=== PATIENT | male | born 2000 | race Caucasian/White ===

== ENCOUNTER 2023-04-08 10:40 | Inpatient (IN) ==
--- NOTE | 2023-04-08 11:20 | Emergency Department Note ---
Impression & Plan Suicidal ideations, Mood disorder ED Provider Note NAME: CONCHA GOMEZ AGE: 22 SEX: M : 2000 ARRIVES VIA: Walk-In INFORMANT: Patient ED PROVIDER(S): Suman Kitchen DO CHIEF COMPLAINT: SI HPI: Patient is a 22-year-old male who presents ER for suicidal ideations. He notes he has been struggling for the past several months with GI issues. He notes after he eats something he gets sick to his stomach. He is followed with GI and they have worked him up and everything has been negative. He gets very anxious and depressed after eating. He has been thinking about killing himself and he feels like he can no longer carry on. Currently has a plan to shoot himself with a gun. He has no belly pain. No headache or change in vision. No chest pain or shortness of breath. No dysuria, urgency, or frequency. ADDITIONAL HISTORY OBTAINED: Per HPI Chronic Medical/Social Conditions Affecting Care: Per HPI PAST MEDICAL HISTORY:See Below PAST SURGICAL HISTORY:See Below FAMILY HISTORY:See Below SOCIAL HISTORY:See Below HOME MEDICATIONS:See Below ALLERGIES:See Below VITALS:See Below PHYSICAL EXAMINATION: GENERAL: Sitting up in bed, alert, well appearing, well nourished, no distress, non-toxic EYE EXAM: normal conjunctiva. OROPHARYNX: mucous membranes are moist NECK: supple, no nuchal rigidity, no adenopathy, non-tender LUNGS: Clear to auscultation. Normal chest wall mechanics HEART: no murmurs, S1 normal and S2 normal ABDOMEN: abdomen soft, non-tender, normo-active bowel sounds, no masses, no rebound or guarding. UPPER EXTREMITIES: upper extremities are grossly normal. LOWER EXTREMITIES: No pitting edema. NEURO EXAM: Normal sensorium, cranial nerves II-XII grossly intact, normal speech, no gross weakness of arms, no gross weakness of legs. No drift. Finger to nose intact. Gross sensation intact. PSYCH: Admits to suicidal ideations with a plan to shoot himself MEDICAL DECISION MAKING: Patient is a 22-year-old male who presents ER for suicidal ideations with a plan to shoot himself. Blood work was obtained and showed no significant leukocytosis or anemia. BMP along LFTs bilirubin was remarkable for T. bili at 1.3. TSH unremarkable. UA was clean. Tox negative. Alcohol negative. Marijuana positive. COVID-negative. He currently has no abdominal pain. Ultrasound was unremarkable. He was updated at bedside. Discussed with our psychiatric managed care provider who evaluate the patient. He wanted to go home. 302 was signed by myself with the petition by our psychiatric care worker. It was signed off and patient was admitted to 3 S. on a 302 Observation Status: Indication: The patient was placed in observation status at 1100. Suicidal ideations with a plan. During the time in observation, the patient was frequently reassessed and received blood work and. On final reassessment the patient medically cleared with normal blood work and ultrasound and the patient will be admitted to 3 S. at 1510. We will observation time of 4 hours and 10 minutes. External Records Reviewed: None Consults/Care Managements Discussions: Per [facility] Triage Nursing notes reviewed. Limited review of prior medical records performed Vital Signs: reviewed and remarkable for HTN Differential diagnosis: Mood disorder, infection, hypoglycemia, electrolyte abnormalities, cardiac sources, intracerebral event, toxicologic, trauma, neurologic, as well as other pathologies. ER treatment provided: See below Diagnostics interpreted by me include EKG and cardiac monitoring as listed below: -ECG: none -Laboratory studies:Interpreted by me as stated above in MDM and shown below. Imaging studies: Xrays: As interpreted by me:none CTs show: none Ultrasound the gallbladder was unremarkable Procedures:none Critical Care: None Past Med/Surg History Social History Smoking Status: Current every day smoker Preferred Language: Bahamian Communication Ability: Effective Wet Mixer Required: No Beliefs That Will Affect Care: None Feels Safe at Home: Yes Gender Identity: Male Assistive Devices: None Allergies Allergies Allergy/AdvReac Type Severity Reaction Status Date / Time No Known Allergies Allergy Unverified 07/11/21 18:39 Home Meds Home Medications Medication Instructions Recorded Confirmed No Known Home Medications 04/08/23 04/08/23 Results & Data (ED) Vital Signs Vital Signs - 24 hr 04/08/23 10:46 04/08/23 12:47 04/08/23 14:40 Temperature 36.8 C 36.9 C Temperature Source Temporal Artery Scan Oral Pulse Rate 128 H Pulse Rate [Left Finger] 101 H 86 Pulse Rhythm [Left Finger] Regular Regular Pulse Strength [Left Finger] Normal Normal Respiratory Rate 18 20 20 Respiratory Effort / Characteristics Non-Labored Spontaneous Non-Labored Spontaneous Non-Labored Spontaneous Respiratory Depth Normal Normal Normal Respiratory Pattern Regular Regular Regular Blood Pressure 136/74 Blood Pressure [Left Arm] 133/79 168/90 H Blood Pressure Mean 94 Blood Pressure Mean [Left Arm] 97 116 Blood Pressure Position Sitting Blood Pressure Position [Left Arm] Sitting Sitting Pulse Oximetry 97 98 98 Oxygen Delivery Method Room Air Room Air Room Air Sepsis Recent Fever Within 48 Hours No Sepsis New/Unexplained Change in Mental Status N/A Sepsis Action Taken by Nursing No Action Required Laboratory Data 04/08/23 11:08 04/08/23 11:08 Lab Results 04/08/23 04/08/23 04/08/23 Range/Units 11:05 11:05 11:08 WBC 8.36 (4.8-10.8) K/ul RBC 5.41 (4.70-6.10) M/uL Hgb 16.4 (14.0-18.0) g/dl Hct 46.5 (42.0-52.0) % MCV 86.0 (80.0-100.0) fL MCH 30.3 (25.0-34.0) pg MCHC 35.3 (32.0-36.0) g/dL RDW Std Deviation 38.6 (36.4-46.3) fL RDW Coeff of Silva 12.3 (11.5-14.5) % Plt Count 246 (130-400) K/uL MPV 9.4 (9.4-12.4) fL Immature Gran % (Auto) 0.2 % Neut % (Auto) 67.0 % Lymph % (Auto) 23.2 % [place] % (Auto) 8.0 % Eos % (Auto) 1.1 % Baso % (Auto) 0.5 % Neut # (Auto) 5.60 (1.40-6.50) K/uL Lymph # (Auto) 1.94 (1.20-3.40) K/uL [place] # (Auto) 0.67 H (0.11-0.59) K/uL Eos # (Auto) 0.09 (0.00-0.50) K/uL Baso # (Auto) 0.04 (0.00-0.20) K/uL Immature Gran # (Auto) 0.02 (0.01-0.20) K/uL Sodium (136-145) mmol/L Potassium (3.5-5.1) mmol/L Chloride (98-107) mmol/L Carbon Dioxide (21-32) mmol/L Anion Gap (3-11) BUN (6-23) mg/dl Creatinine (0.6-1.4) mg/dl Est Cr Clr Drug Dosing ml/min Est GFR ( Amer) ml/min Est GFR (Non-Af Amer) ml/min BUN/Creatinine Ratio (10-20) Glucose (70-99(Fasting)) mg/dl Calcium (8.6-10.3) mg/dl Total Bilirubin (0.2-1.0) mg/dl AST (13-39) U/L ALT (7-52) U/L Alkaline Phosphatase (34-104) U/L Total Protein (6.0-8.3) gm/dl Albumin (3.4-5.0) gm/dl Globulin (2.5-4.0) gm/dl Albumin/Globulin Ratio (0.9-2) TSH (0.300-4.500) uIu/ml Urine Color Yellow Urine Appearance Clear (Clear) Urine pH 6.0 (4.5-7.5) Ur Specific [place] 1.014 (1.000-1.030) Urine Protein Negative (Negative) Urine Glucose (UA) Negative (Negative) Urine Ketones 1+ H (Negative) Urine Blood Negative (Negative) Urine Nitrite Negative (Negative) Urine Bilirubin Negative (Negative) Urine Urobilinogen Negative (Negative) Ur Leukocyte Esterase Negative (Negative) Salicylates (3.0-30) mg/dl Urine Opiates Screen Neg (Neg) Ur Methadone, Qual Neg (Neg) Acetaminophen (10-30) ug/ml Urine Barbiturates Neg (Neg) Ur Phencyclidine (PCP) Neg (Neg) U Amphetamin/Meth Scrn Neg (Neg) MDMA (Ecstasy) Screen Neg (Neg) U Benzodiazepines Scrn Neg (Neg) Ur Cocaine Metabolite Neg (Neg) U Marijuana (THC) Screen Pos H (Neg) Ethyl Alcohol mg/dL (<10.0) mg/dl SARS-CoV-2, RNA, NAAT (NEGATIVE) 04/08/23 04/08/23 04/08/23 Range/Units 11:08 11:08 11:08 WBC (4.8-10.8) K/ul RBC (4.70-6.10) M/uL Hgb (14.0-18.0) g/dl Hct (42.0-52.0) % MCV (80.0-100.0) fL MCH (25.0-34.0) pg MCHC (32.0-36.0) g/dL RDW Std Deviation (36.4-46.3) fL RDW Coeff of Silva (11.5-14.5) % Plt Count (130-400) K/uL MPV (9.4-12.4) fL Immature Gran % (Auto) % Neut % (Auto) % Lymph % (Auto) % [place] % (Auto) % Eos % (Auto) % Baso % (Auto) % Neut # (Auto) (1.40-6.50) K/uL Lymph # (Auto) (1.20-3.40) K/uL [place] # (Auto) (0.11-0.59) K/uL Eos # (Auto) (0.00-0.50) K/uL Baso # (Auto) (0.00-0.20) K/uL Immature Gran # (Auto) (0.01-0.20) K/uL Sodium 135 L (136-145) mmol/L Potassium 3.9 (3.5-5.1) mmol/L Chloride 103 (98-107) mmol/L Carbon Dioxide 24 (21-32) mmol/L Anion Gap 8 (3-11) BUN 17 (6-23) mg/dl Creatinine 1.03 (0.6-1.4) mg/dl Est Cr Clr Drug Dosing 119.3 ml/min Est GFR ( Amer) 120.6 ml/min Est GFR (Non-Af Amer) 104.1 ml/min BUN/Creatinine Ratio 16.5 (10-20) Glucose 106 H (70-99(Fasting)) mg/dl Calcium 9.9 (8.6-10.3) mg/dl Total Bilirubin 1.3 H (0.2-1.0) mg/dl AST 15 (13-39) U/L ALT 12 (7-52) U/L Alkaline Phosphatase 56 (34-104) U/L Total Protein 7.7 (6.0-8.3) gm/dl Albumin 5.2 H (3.4-5.0) gm/dl Globulin 2.5 (2.5-4.0) gm/dl Albumin/Globulin Ratio 2.1 H (0.9-2) TSH 0.366 (0.300-4.500) uIu/ml Urine Color Urine Appearance (Clear) Urine pH (4.5-7.5) Ur Specific [place] (1.000-1.030) Urine Protein (Negative) Urine Glucose (UA) (Negative) Urine Ketones (Negative) Urine Blood (Negative) Urine Nitrite (Negative) Urine Bilirubin (Negative) Urine Urobilinogen (Negative) Ur Leukocyte Esterase (Negative) Salicylates < 3.0 L (3.0-30) mg/dl Urine Opiates Screen (Neg) Ur Methadone, Qual (Neg) Acetaminophen < 3 L (10-30) ug/ml Urine Barbiturates (Neg) Ur Phencyclidine (PCP) (Neg) U Amphetamin/Meth Scrn (Neg) MDMA (Ecstasy) Screen (Neg) U Benzodiazepines Scrn (Neg) Ur Cocaine Metabolite (Neg) U Marijuana (THC) Screen (Neg) Ethyl Alcohol mg/dL < 10.0 (<10.0) mg/dl SARS-CoV-2, RNA, NAAT (NEGATIVE) 04/08/23 Range/Units 11:08 WBC (4.8-10.8) K/ul RBC (4.70-6.10) M/uL Hgb (14.0-18.0) g/dl Hct (42.0-52.0) % MCV (80.0-100.0) fL MCH (25.0-34.0) pg MCHC (32.0-36.0) g/dL RDW Std Deviation (36.4-46.3) fL RDW Coeff of Silva (11.5-14.5) % Plt Count (130-400) K/uL MPV (9.4-12.4) fL Immature Gran % (Auto) % Neut % (Auto) % Lymph % (Auto) % [place] % (Auto) % Eos % (Auto) % Baso % (Auto) % Neut # (Auto) (1.40-6.50) K/uL Lymph # (Auto) (1.20-3.40) K/uL [place] # (Auto) (0.11-0.59) K/uL Eos # (Auto) (0.00-0.50) K/uL Baso # (Auto) (0.00-0.20) K/uL Immature Gran # (Auto) (0.01-0.20) K/uL Sodium (136-145) mmol/L Potassium (3.5-5.1) mmol/L Chloride (98-107) mmol/L Carbon Dioxide (21-32) mmol/L Anion Gap (3-11) BUN (6-23) mg/dl Creatinine (0.6-1.4) mg/dl Est Cr Clr Drug Dosing ml/min Est GFR ( Amer) ml/min Est GFR (Non-Af Amer) ml/min BUN/Creatinine Ratio (10-20) Glucose (70-99(Fasting)) mg/dl Calcium (8.6-10.3) mg/dl Total Bilirubin (0.2-1.0) mg/dl AST (13-39) U/L ALT (7-52) U/L Alkaline Phosphatase (34-104) U/L Total Protein (6.0-8.3) gm/dl Albumin (3.4-5.0) gm/dl Globulin (2.5-4.0) gm/dl Albumin/Globulin Ratio (0.9-2) TSH (0.300-4.500) uIu/ml Urine Color Urine Appearance (Clear) Urine pH (4.5-7.5) Ur Specific [place] (1.000-1.030) Urine Protein (Negative) Urine Glucose (UA) (Negative) Urine Ketones (Negative) Urine Blood (Negative) Urine Nitrite (Negative) Urine Bilirubin (Negative) Urine Urobilinogen (Negative) Ur Leukocyte Esterase (Negative) Salicylates (3.0-30) mg/dl Urine Opiates Screen (Neg) Ur Methadone, Qual (Neg) Acetaminophen (10-30) ug/ml Urine Barbiturates (Neg) Ur Phencyclidine (PCP) (Neg) U Amphetamin/Meth Scrn (Neg) MDMA (Ecstasy) Screen (Neg) U Benzodiazepines Scrn (Neg) Ur Cocaine Metabolite (Neg) U Marijuana (THC) Screen (Neg) Ethyl Alcohol mg/dL (<10.0) mg/dl SARS-CoV-2, RNA, NAAT NEGATIVE (NEGATIVE) Administered Medications Discontinued Medications Nicotine (Nicotine 14 Mg/24 Hr Patch) Confirm Administered Dose 14 mg TD .Siklu- MED ONE Stop: 04/08/23 14:43 Last Admin: 04/08/23 14:43 Dose: 14 mg Documented By: INGRID Imaging Data Radiologist's Impression: Gallbladder Ultrasound 04/08/23 11:20 ULTRASOUND RIGHT UPPER QUADRANT ABDOMEN CLINICAL HISTORY: Epigastric abdominal pain. COMPARISON STUDY: Abdominal CT dated 07/11/2021 TECHNIQUE: Real-time, grayscale, and color flow sonography of the right upper quadrant of the abdomen was performed. Images are reviewed in the transverse and longitudinal planes. FINDINGS: Liver: The liver is normal in size and echotexture. There is no intrahepatic biliary ductal dilatation. The main portal vein is patent. Gallbladder: The gallbladder is normal in appearance. No gallstones are identified. There is no gallbladder wall thickening or pericholecystic fluid. A sonographic Guzman's sign is reportedly absent. The common bile duct measures up to 0.2 cm in diameter. Pancreas: Visualized portions of the pancreatic head and body are normal in appearance. Right kidney: Survey images of the right kidney demonstrate normal size and echotexture. There is no hydronephrosis. Ascites: None. IMPRESSION: No acute sonographic abnormality is seen in the right upper quadrant. No gallstones are identified. ACT 112: Negative or not required by law. Electronically signed by: Arpit Robertson M.D. 04/08/2023 11:53 AM Discharge Plan Visit Data Chief Complaint: Mental Health Evaluation Stated Complaint: MENTAL HEALTH EVALUATION (SIGN 201) ED Provider: Suman Kitchen Discharge Problem: Suicidal ideations, Mood disorder Patient Disposition: Admitted As Inpatient Discharge Instructions Interventions: ED Discharge Assessment Last Done: 04/08/23 15:10
[2023-04-08 11:26] LABS: Basophils # (auto) 0.04 K/uL (0.00-0.20); Basophils % (auto) 0.5 %; Eosinophils # (auto) 0.09 K/uL (0.00-0.50); Eosinophils % (auto) 1.1 %; Hematocrit (blood only) 46.5 % (42.0-52.0); Hemoglobin 16.4 g/dl (14.0-18.0); Immature Granulocytes # (auto) 0.02 K/uL (0.01-0.20); Immature Granulocytes % (auto) 0.2 %; Lymphocytes # (auto) 1.94 K/uL (1.20-3.40); Lymphocytes % (auto) 23.2 %; Mean Corpuscular Hemoglobin 30.3 pg (25.0-34.0); Mean Corpuscular Hgb Conc 35.3 g/dL (32.0-36.0); Mean Platelet Volume 9.4 fL (9.4-12.4); Monocytes # (auto) 0.67 K/uL (0.11-0.59); Platelet Count 246 K/uL (130-400); RDW Coefficient of Variation 12.3 % (11.5-14.5); RDW Standard Deviation 38.6 fL (36.4-46.3); Red Blood Count 5.41 M/uL (4.70-6.10); White Blood Count 8.36 K/ul (4.8-10.8)
[2023-04-08 11:38] LABS: Albumin Level 5.2 gm/dl (3.4-5.0); Bilirubin,Total 1.3 mg/dl (0.2-1.0); Calcium 9.9 mg/dl (8.6-10.3); Potassium 3.9 mmol/L (3.5-5.1)
[2023-04-08 11:38] LABS: Appearance Urine Clear (Clear); Bilirubin Urine Negative (Negative); Blood Urine Negative (Negative); Color Urine Yellow; Glucose Urine UA Negative (Negative); Ketones Urine 1+ (Negative); Leukocyte Esterase Urine Negative (Negative); Nitrite Urine Negative (Negative); Protein Urine Negative (Negative); Specific Gravity Urine 1.014 (1.000-1.030); Urobilinogen Urine Negative (Negative)
[2023-04-08 11:44] LABS: Albumin Globulin Ratio 2.1 (0.9-2); BUN Creatinine Ratio 16.5 (10-20); Creatinine Clr Calc Pharmacy 119.3 ml/min; Est GFR (African American) 120.6 ml/min; Est GFR (Non-African American) 104.1 ml/min; Globulin 2.5 gm/dl (2.5-4.0); Total Protein 7.7 gm/dl (6.0-8.3)
[2023-04-08 11:51] LABS: Acetaminophen < 3 ug/ml (10-30); Salicylate < 3.0 mg/dl (3.0-30)
--- NOTE | 2023-04-08 11:54 | Ultrasound Report ---
ULTRASOUND RIGHT UPPER QUADRANT ABDOMEN CLINICAL HISTORY: Epigastric abdominal pain. COMPARISON STUDY: Abdominal CT dated 07/11/2021 TECHNIQUE: Real-time, grayscale, and color flow sonography of the right upper quadrant of the abdomen was performed. Images are reviewed in the transverse and longitudinal planes. FINDINGS: Liver: The liver is normal in size and echotexture. There is no intrahepatic biliary ductal dilatatio n. The main portal vein is patent. Gallbladder: The gallbladder is normal in appearance. No gallstones are identified. There is no gallb ladder wall thickening or pericholecystic fluid. A sonographic Guzman's sign is reportedly absent. Th e common bile duct measures up to 0.2 cm in diameter. Pancreas: Visualized portions of the pancreatic head and body are normal in appearance. Right kidney: Survey images of the right kidney demonstrate normal size and echotexture. There is no hydronephrosis. Ascites: None. IMPRESSION: No acute sonographic abnormality is seen in the right upper quadrant. No gallstones are i dentified. ACT 112: Negative or not required by law. Electronically signed by: Arpit Robertson M.D. 04/08/2023 11:53 AM
[2023-04-08 11:58] LABS: Thyroid Stimulating Hormone 0.366 uIu/ml (0.300-4.500)
[2023-04-08 12:06] LABS: Amphetamines+Metham, Urine Neg (Neg); Barbiturates, Urine Neg (Neg); Benzodiazepine, Urine Neg (Neg); Cocaine, Urine Neg (Neg); MDMA (Ecstacy), Urine Neg (Neg); Methadone, Urine Neg (Neg); Opiate, Urine Neg (Neg); Phencyclidine, Urine Neg (Neg)
[2023-04-08] MEDS ORDERED: NICOTINE 14 MG/24 HR PATCH TD ONE (14:42)
[2023-04-08] MEDS ORDERED: ACETAMINOPHEN 325 MG TAB PO PRN (15:06)
[2023-04-08] MEDS ORDERED: BISMUTH SUBSALICYLATE LIQD 236 ML PO PRN (15:06)
[2023-04-08] MEDS ORDERED: ALUMINUM/MAGNESIUM SUSP 30 ML UDC PO PRN ×2 (15:06→15:09)
[2023-04-08] MEDS ORDERED: MAGNESIUM HYDROXIDE SUSP 30 ML UDC PO PRN (15:06)
[2023-04-08] MEDS ORDERED: SODIUM CHLORIDE 0.65% NA SOLN 45 ML (OCEAN) PRN (15:06)
[2023-04-08] MEDS ORDERED: hydrOXYzine HCl 25 MG TAB PO PRN ×2 (15:06)
[2023-04-08] MEDS ORDERED: NICOTINE 21 MG/24 HR TDSY TD SCH (15:15)
[2023-04-08] MEDS: CAPSAICIN CR 0.075% 60 GM TUBE EXT PRN (19:25)
[2023-04-09] MEDS: NICOTINE 21 MG/24 HR TDSY TD SCH (09:32)
[2023-04-09] MEDS: LANSOPRAZOLE 30 MG SOLTAB PO SCH ×2 (10:57→21:17)
--- NOTE | 2023-04-09 13:38 | History & Physical ---
Date of Service April 09, 2023 Impression / Recommendations Impression 22 yo male with a hx of sertraline for non-specific anxiety presenting with worsening mood/SI in the context of cannabis abuse resulting in hyperemesis undoubtedly complicated by abrupt SSRI discontinuation. Overall, I spent a total of 60 minutes with this case, including review of chart/records, direct evaluation of the patient, counseling the patient, ordering medication, coordination with nursing or interdisciplinary team meeting, risk assessment, and documentation. (1) Suicidal ideations: (2) Major depressive disorder with single episode: (3) Selective serotonin reuptake inhibitor (SSRI) discontinuation syndrome: (4) Cannabis hyperemesis syndrome concurrent with and due to cannabis abuse: Plan The patient was admitted to the [facility] ([facility]) on q15 min checks (behavioral with suicide precautions) for safety. The patient will participate in group, recreational, and milieu therapies and will be offered additional individual and family sessions as clinically appropriate. Will start proton pump inhibitor and readdress psychiatric medications when >24 hrs from emesis. Collateral from family likely also prove helpful. He is not having specific abdominal pain so capsaicin less likely to be helpful. Did benefit from Zofran prn as was placed on private room given several episodes of vomiting. The patient's has already discontinued cannabis but his use was problematic, particularly in combination with SSRI. Brief intervention was greater than 5 min in length and included assessing his ongoing readiness to quit, advice on how to reduce or abstai, and to set a specific goal for this hospitalization. He states he will continue to abstain and wasn't hard to quit. Inventory Assets Strengths: employed, tolerating 302 process Needs: safety plan, outpatient providers Suicide Risk Level Suicide Risk Level: High-Moderate (q15 min suicide checks) Risk Factors Assessment Male: Yes Do You Have Access To A Gun?: No Previous Attempt: No Previous Psychiatric Hospitalization: No Protective Factors Assessment Employed: Yes ([employer]) Supportive Family: Yes Psychiatric History Identifying Data CONCHA GOMEZ is a 22-year-old M who currently lives in [place] and was admitted on 04/08/23 15:06 on a 302 involuntary commitment for SI with a plan to shoot himself. Chief Complaint "I just can't take being so nauseated any more." History of Present Illness Concha states he had been taking sertraline 100 mg for "maybe a year" for non specific anxiety and using MJ regularly until 2-3 weeks ago when he abruptly stopped the SSRI. He claims it made him feel more jittery and possibly nauseated, though actually noticed the latter got worse when he smoked MJ. He did not directly quantify his use, mainly flower/sometimes tinctures; he seemed unfamiliar with the THC levels of products or if they were reputably sourced. He seemed quite certain he did not use synthetics. He stopped MJ a week ago as "I just didn't feel right in the head, like maybe I have a dissociative disorder or something." He does describe ongoing feelings of disconnect and worsening sensation of vomiting after eating despite discontinuing cannabis. He did vomit last pm after eating pizza for dinner and described feeling sick again today. Apparently he has had some work up in the past for reflux but denied ever taking antacids. He did not describe any specific stressors other than his sensation of vomiting that caused him to feel suicidal. He denies hx of self-harm. Although he does not have access to a gun at home he had reported in the ED that it was difficult for him not to act on the urges. Despite the irritability toward family noted in ED last pm, he denies issues relating to his adoptive parents. 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 He has had a harder time getting up in the am to make it to work at [employer] by 5 am. He has worked there for 1.5 years and the holiday season is looming. Past Psychiatric History Previous Psych History: denied hx in childhood Current Psychiatric Diagnosis: None Outpatient Services: none, med trial via [facility] PCP Previous Psych Admissions: none Do You Have Access To A Gun?: No History of Previous Suicide Attempt: No Allergies Allergy/AdvReac Type Severity Reaction Status Date / Time No Known Allergies Allergy Unverified 07/11/21 18:39 Home Medications Medication Instructions Recorded Confirmed Type No Known Home Medications 04/08/23 04/08/23 History Family History Family History of: Doesn't Know Alcohol History Hx of Alcohol Use Over the Past 12 Months: No AUDIT Total Score: 0 Smoking Use Have You Smoked or Used Tobacco Products in the Last 30 Days: Yes tobacco type: cigarettes Smoking Status: Current every day smoker Smoking packs per day: 20 Substance History Hx of Prescription Med Misuse Over the Past 12 Months: No Hx of Over the Counter Med Misuse Over the Past 12 Months: No Hx of Inhalent Misuse Over the Past 12 Months: No Hx of Organic Substance Use Over the Past 12 Months: Yes (vaping marijuana/stopped last week) Hx of Illegal Substances/Street Drug Use Over Past 12 Months: No Problems as a Result of Past Substance Use: None Identified Personal History Living Arrangements: Home Childhood: orphanage age 7-16, international adoption, has two younger siblings in the home. 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) Marital Status: Single Number Of Children: 0 Beliefs That Will Affect Care: None Current Legal Problems: No Hx Traumatic Life Events: No Patient History Medical History (Updated 04/09/23 @ 13:31 by Kati Monahan MD) Recurrent vomiting Social History Smoking Status: Current every day smoker Preferred Language: Estonian Communication Ability: Effective Distribution System Operator Required: No Beliefs That Will Affect Care: None Feels Safe at Home: Yes Gender Identity: Male Assistive Devices: None Review of Systems Review of Systems: All systems reviewed & are unremarkable except as noted in HPI & below Physical Exam Psychiatric: Orientation: alert and oriented x 3 Apperance: appropriately dressed and appropriately groomed Eye Contact: good eye contact Motor Behavior: no abnormal motor movements Speech: normal rate/rhythm/volume of speech Affect: + depressed affect Mood: + depressed mood Thought Process: goal directed thought process Thought Content: reality based without delusions Suicidal Thoughts: denies suicidal thoughts (currently) Homicidal Thoughts: denies homicidal thoughts Hallucinations: no auditory hallucinations and no visual hallucinations Cognition: attention grossly intact and language grossly intact Estimated Intelligence: consistent with education level Insight: + limited insight Judgment: + limited judgement Vital Signs (Past 24 Hours): Last Vital Signs Temp 36.5 C 04/09/23 06:45 Pulse 84 04/09/23 06:46 Resp 16 04/09/23 06:45 BP 122/71 04/09/23 06:46 Pulse Ox 98 04/08/23 16:05 O2 Del Method Room Air 04/08/23 16:05 Exam Statement: A physical exam was performed in the ED by Dr. Kitchen for the purposes of medical clearance. I accept that physical as correct and adequate for the purposes of the inpatient physical exam. Results & Data (U) Laboratory Results Labs 04/08/23 04/08/23 04/08/23 11:05 11:05 11:08 WBC 8.36 RBC 5.41 Hgb 16.4 Hct 46.5 MCV 86.0 MCH 30.3 MCHC 35.3 RDW Std Deviation 38.6 RDW Coeff of Silva 12.3 Plt Count 246 MPV 9.4 Immature Gran % (Auto) 0.2 Neut % (Auto) 67.0 Lymph % (Auto) 23.2 [place] % (Auto) 8.0 Eos % (Auto) 1.1 Baso % (Auto) 0.5 Neut # (Auto) 5.60 Lymph # (Auto) 1.94 [place] # (Auto) 0.67 H Eos # (Auto) 0.09 Baso # (Auto) 0.04 Immature Gran # (Auto) 0.02 Sodium Potassium Chloride Carbon Dioxide Anion Gap BUN Creatinine Est Cr Clr Drug Dosing Est GFR ( Amer) Est GFR (Non-Af Amer) BUN/Creatinine Ratio Glucose Calcium Total Bilirubin AST ALT Alkaline Phosphatase Total Protein Albumin Globulin Albumin/Globulin Ratio TSH Urine Color Yellow Urine Appearance Clear Urine pH 6.0 Ur Specific [place] 1.014 Urine Protein Negative Urine Glucose (UA) Negative Urine Ketones 1+ H Urine Blood Negative Urine Nitrite Negative Urine Bilirubin Negative Urine Urobilinogen Negative Ur Leukocyte Esterase Negative Salicylates Urine Opiates Screen Neg Ur Methadone, Qual Neg Acetaminophen Urine Barbiturates Neg Ur Phencyclidine (PCP) Neg U Amphetamin/Meth Scrn Neg MDMA (Ecstasy) Screen Neg U Benzodiazepines Scrn Neg Ur Cocaine Metabolite Neg U Marijuana (THC) Screen Pos H Ethyl Alcohol mg/dL SARS-CoV-2, RNA, NAAT 04/08/23 04/08/23 04/08/23 11:08 11:08 11:08 WBC RBC Hgb Hct MCV MCH MCHC RDW Std Deviation RDW Coeff of Silva Plt Count MPV Immature Gran % (Auto) Neut % (Auto) Lymph % (Auto) [place] % (Auto) Eos % (Auto) Baso % (Auto) Neut # (Auto) Lymph # (Auto) [place] # (Auto) Eos # (Auto) Baso # (Auto) Immature Gran # (Auto) Sodium 135 L Potassium 3.9 Chloride 103 Carbon Dioxide 24 Anion Gap 8 BUN 17 Creatinine 1.03 Est Cr Clr Drug Dosing 119.3 Est GFR ( Amer) 120.6 Est GFR (Non-Af Amer) 104.1 BUN/Creatinine Ratio 16.5 Glucose 106 H Calcium 9.9 Total Bilirubin 1.3 H AST 15 ALT 12 Alkaline Phosphatase 56 Total Protein 7.7 Albumin 5.2 H Globulin 2.5 Albumin/Globulin Ratio 2.1 H TSH 0.366 Urine Color Urine Appearance Urine pH Ur Specific [place] Urine Protein Urine Glucose (UA) Urine Ketones Urine Blood Urine Nitrite Urine Bilirubin Urine Urobilinogen Ur Leukocyte Esterase Salicylates < 3.0 L Urine Opiates Screen Ur Methadone, Qual Acetaminophen < 3 L Urine Barbiturates Ur Phencyclidine (PCP) U Amphetamin/Meth Scrn MDMA (Ecstasy) Screen U Benzodiazepines Scrn Ur Cocaine Metabolite U Marijuana (THC) Screen Ethyl Alcohol mg/dL < 10.0 SARS-CoV-2, RNA, NAAT 04/08/23 11:08 WBC RBC Hgb Hct MCV MCH MCHC RDW Std Deviation RDW Coeff of Silva Plt Count MPV Immature Gran % (Auto) Neut % (Auto) Lymph % (Auto) [place] % (Auto) Eos % (Auto) Baso % (Auto) Neut # (Auto) Lymph # (Auto) [place] # (Auto) Eos # (Auto) Baso # (Auto) Immature Gran # (Auto) Sodium Potassium Chloride Carbon Dioxide Anion Gap BUN Creatinine Est Cr Clr Drug Dosing Est GFR ( Amer) Est GFR (Non-Af Amer) BUN/Creatinine Ratio Glucose Calcium Total Bilirubin AST ALT Alkaline Phosphatase Total Protein Albumin Globulin Albumin/Globulin Ratio TSH Urine Color Urine Appearance Urine pH Ur Specific [place] Urine Protein Urine Glucose (UA) Urine Ketones Urine Blood Urine Nitrite Urine Bilirubin Urine Urobilinogen Ur Leukocyte Esterase Salicylates Urine Opiates Screen Ur Methadone, Qual Acetaminophen Urine Barbiturates Ur Phencyclidine (PCP) U Amphetamin/Meth Scrn MDMA (Ecstasy) Screen U Benzodiazepines Scrn Ur Cocaine Metabolite U Marijuana (THC) Screen Ethyl Alcohol mg/dL SARS-CoV-2, RNA, NAAT NEGATIVE Diagnostic Findings Gallbladder Ultrasound 04/08/23 11:20 ULTRASOUND RIGHT UPPER QUADRANT ABDOMEN CLINICAL HISTORY: Epigastric abdominal pain. COMPARISON STUDY: Abdominal CT dated 07/11/2021 TECHNIQUE: Real-time, grayscale, and color flow sonography of the right upper quadrant of the abdomen was performed. Images are reviewed in the transverse and longitudinal planes. FINDINGS: Liver: The liver is normal in size and echotexture. There is no intrahepatic biliary ductal dilatation. The main portal vein is patent. Gallbladder: The gallbladder is normal in appearance. No gallstones are identified. There is no gallbladder wall thickening or pericholecystic fluid. A sonographic Guzman's sign is reportedly absent. The common bile duct measures up to 0.2 cm in diameter. Pancreas: Visualized portions of the pancreatic head and body are normal in appearance. Right kidney: Survey images of the right kidney demonstrate normal size and echotexture. There is no hydronephrosis. Ascites: None. IMPRESSION: No acute sonographic abnormality is seen in the right upper quadrant. No gallstones are identified. ACT 112: Negative or not required by law. Electronically signed by: Arpit Robertson M.D. 04/08/2023 11:53 AM Current Inpatient Medications Current Inpatient Medications: Current Inpatient Medications Acetaminophen (Acetaminophen 325 Mg Tab) 650 mg PO Q4H PRN PRN Reason: Headache or Minor Fever Stop: 05/08/23 15:05 Al Hydrox/Mg Hydrox/Simethicone (Aluminum/Magnesium Susp 30 Ml Udc) 30 ml PO Q4H PRN PRN Reason: Gi Upset Stop: 05/08/23 15:05 Bismuth Subsalicylate (Bismuth Subsalicylate Liqd 236 Ml) 15 ml PO PRN PRN PRN Reason: Loose Stool Stop: 05/08/23 15:05 Capsaicin (Capsaicin Cr 0.075% 60 Gm Tube) 1 appln EXT QID PRN PRN Reason: Nausea Stop: 05/08/23 15:07 Last Admin: 04/08/23 19:25 Dose: 1 appln Hydroxyzine HCl (Hydroxyzine Hcl 25 Mg Tab) 50 mg PO HSZ PRN PRN Reason: Insomnia Stop: 05/08/23 15:05 Hydroxyzine HCl (Hydroxyzine Hcl 25 Mg Tab) 25 mg PO Q4H PRN PRN Reason: Anxiety Stop: 05/08/23 15:05 Lansoprazole (Lansoprazole 30 Mg Soltab) 30 mg PO BID BUDDY Stop: 05/09/23 10:14 Last Admin: 04/09/23 10:57 Dose: 30 mg Magnesium Hydroxide (Magnesium Hydroxide Susp 30 Ml Udc) 30 ml PO DAILY PRN PRN Reason: Constipation Stop: 05/08/23 15:05 Miscellaneous (Remove Nicoderm Patch) 1 each N/A DAILY@0859 [facility] Stop: 05/09/23 08:58 Last Admin: 04/09/23 09:28 Dose: 1 each Nicotine (Nicotine 21 Mg/24 Hr Tdsy) 21 mg TD QAM [facility] Stop: 05/09/23 08:59 Last Admin: 04/09/23 09:32 Dose: 21 mg Ondansetron HCl (Ondansetron 8mg Od Tab) 8 mg PO Q8H PRN PRN Reason: Vomiting Stop: 05/08/23 19:17 Sodium Chloride (Sodium Chloride 0.65% Na Soln 45 Ml ([place])) 2 sprays NA PRN PRN PRN Reason: Nasal Dryness/Congestion Stop: 05/08/23 15:05
[2023-04-09] MEDS: CAPSAICIN CR 0.075% 60 GM TUBE EXT PRN (18:16)
[2023-04-09] MEDS: ONDANSETRON 8MG OD TAB PO PRN (18:38)
[2023-04-10] MEDS: LANSOPRAZOLE 30 MG SOLTAB PO SCH ×2 (09:39→21:02)
[2023-04-10] MEDS: NICOTINE 21 MG/24 HR TDSY TD SCH (09:40)
[2023-04-10] MEDS: ONDANSETRON 8MG OD TAB PO PRN ×2 (09:40→16:40)
[2023-04-10] MEDS ORDERED: NICOTINE POLACRILEX 2 MG GUM MT PRN (16:43)
--- NOTE | 2023-04-10 18:32 | Psychiatric Progress Note ---
Date of Service April 10, 2023 Impression / Recommendations Impression 22 yo male with a hx of sertraline for non-specific anxiety presenting with worsening mood/SI in the context of cannabis abuse resulting in hyperemesis undoubtedly complicated by abrupt SSRI discontinuation. Overall, I spent a total of 37 minutes with this case, including review of chart/records, direct evaluation of the patient, counseling the patient, interdisciplinary team meeting, risk assessment, and documentation. (1) Suicidal ideations: (2) Major depressive disorder with single episode: (3) Selective serotonin reuptake inhibitor (SSRI) discontinuation syndrome: (4) Cannabis hyperemesis syndrome concurrent with and due to cannabis abuse: Plan 04/10/2023: continue antacids and prn Zofran, family involvement 04/09/2023: The patient was admitted to the [facility] ([facility]) on q15 min checks (behavioral with suicide precautions) for safety. The patient will participate in group, recreational, and milieu therapies and will be offered additional individual and family sessions as clinically appropriate. Will start proton pump inhibitor and readdress psychiatric medications when >24 hrs from emesis. Collateral from family likely also prove helpful. He is not having specific abdominal pain so capsaicin less likely to be helpful. Did benefit from Zofran prn as was placed on private room given several episodes of vomiting. The patient's has already discontinued cannabis but his use was problematic, particularly in combination with SSRI. Brief intervention was greater than 5 min in length and included assessing his ongoing readiness to quit, advice on how to reduce or abstai, and to set a specific goal for this hospitalization. He states he will continue to abstain and wasn't hard to quit. Inventory Assets Strengths: employed, tolerating 302 process Needs: safety plan, outpatient providers Suicide Risk Level Suicide Risk Level: Moderate (q15 min suicide checks) Risk Factors Assessment Male: Yes Do You Have Access To A Gun?: Yes (Father has guns in the home.) Previous Attempt: No Previous Psychiatric Hospitalization: No Protective Factors Assessment Employed: Yes ([employer]) Supportive Family: Yes Interval History Identifying Information CONCHA GOMEZ is a 22-year-old M who currently lives in [place] and was admitted on 04/08/23 15:06 on a 302 involuntary commitment for SI with a plan to shoot himself. Chief Complaint "as long as my stomach is OK I feel fine mentally." Review of Systems Sleep Information Total Hours of Sleep: 8 Meal Information Percent Meal Consumed - Breakfast: 100 Percent Meal Consumed - Lunch: 100 Percent Meal Consumed - Dinner: 100 Nutrition Comment: Denied any nausea or emesis after meal. Subjective Subjective Patient was seen & assessed and interval progress reviewed with treatment team. Still c/o some N after meals but no vomiting since night of admission, calmer and appears brighter in conversion. He is pleased with his progress and doesn't feel a need for more medication/therapy but cooperative with unit routines. Using Zofran prn 1-2 times a day. Physical Exam Psychiatric Orientation: alert and oriented x 3 Apperance: appropriately dressed and appropriately groomed Eye Contact: good eye contact Motor Behavior: no abnormal motor movements Speech: normal rate/rhythm/volume of speech Affect: + depressed affect Mood: + depressed mood Thought Process: goal directed thought process Thought Content: reality based without delusions Suicidal Thoughts: denies suicidal thoughts (currently) Homicidal Thoughts: denies homicidal thoughts Hallucinations: no auditory hallucinations and no visual hallucinations Cognition: attention grossly intact and language grossly intact Estimated Intelligence: consistent with education level Insight: + limited insight Judgment: + limited judgement Vital Signs (Past 24 Hours) Last Vital Signs Temp 36.6 C 04/10/23 06:44 Pulse 67 04/10/23 06:44 Resp 16 04/10/23 06:44 BP 109/74 04/10/23 06:44 Pulse Ox 98 04/08/23 16:05 O2 Del Method Room Air 04/08/23 16:05 Results & Data ([facility]) Current Inpatient Medications Current Inpatient Medications: Current Inpatient Medications Acetaminophen (Acetaminophen 325 Mg Tab) 650 mg PO Q4H PRN PRN Reason: Headache or Minor Fever Stop: 05/08/23 15:05 Al Hydrox/Mg Hydrox/Simethicone (Aluminum/Magnesium Susp 30 Ml Udc) 30 ml PO Q4H PRN PRN Reason: Gi Upset Stop: 05/08/23 15:05 Bismuth Subsalicylate (Bismuth Subsalicylate Liqd 236 Ml) 15 ml PO PRN PRN PRN Reason: Loose Stool Stop: 05/08/23 15:05 Capsaicin (Capsaicin Cr 0.075% 60 Gm Tube) 1 appln EXT QID PRN PRN Reason: Nausea Stop: 05/08/23 15:07 Last Admin: 04/09/23 18:16 Dose: 1 appln Hydroxyzine HCl (Hydroxyzine Hcl 25 Mg Tab) 50 mg PO HSZ PRN PRN Reason: Insomnia Stop: 05/08/23 15:05 Hydroxyzine HCl (Hydroxyzine Hcl 25 Mg Tab) 25 mg PO Q4H PRN PRN Reason: Anxiety Stop: 05/08/23 15:05 Lansoprazole (Lansoprazole 30 Mg Soltab) 30 mg PO BID [facility] Stop: 05/09/23 10:14 Last Admin: 04/10/23 09:39 Dose: 30 mg Magnesium Hydroxide (Magnesium Hydroxide Susp 30 Ml Udc) 30 ml PO DAILY PRN PRN Reason: Constipation Stop: 05/08/23 15:05 Miscellaneous (Remove Nicoderm Patch) 1 each N/A DAILY@0859 [facility] Stop: 05/09/23 08:58 Last Admin: 04/10/23 09:39 Dose: 1 each Nicotine (Nicotine 21 Mg/24 Hr Tdsy) 21 mg TD QAM [facility] Stop: 05/09/23 08:59 Last Admin: 04/10/23 09:40 Dose: 21 mg Nicotine Polacrilex (Nicotine Polacrilex 2 Mg Gum) 2 piece MT PRN PRN PRN Reason: smoking cessation Stop: 05/10/23 16:42 Last Admin: 04/10/23 16:49 Dose: 2 piece Ondansetron HCl (Ondansetron 8mg Od Tab) 8 mg PO Q8H PRN PRN Reason: Vomiting Stop: 05/08/23 19:17 Last Admin: 04/10/23 16:40 Dose: 8 mg Sodium Chloride (Sodium Chloride 0.65% Na Soln 45 Ml ([place])) 2 sprays NA PRN PRN PRN Reason: Nasal Dryness/Congestion Stop: 05/08/23 15:05 Mental Health & Subst Abuse Tx Therapist Name of Therapist: None Geophysical Observer Name of Geophysical Observer: None Post Discharge Appointments Primary Care Physician Name Of Family Doctor/PCP: Sonja
[2023-04-11] MEDS: LANSOPRAZOLE 30 MG SOLTAB PO SCH ×2 (09:00→20:48)
[2023-04-11] MEDS: NICOTINE 21 MG/24 HR TDSY TD SCH (09:00)
[2023-04-11] MEDS: ONDANSETRON 8MG OD TAB PO PRN ×2 (10:51→18:12)
[2023-04-11] MEDS: busPIRone 5 MG TAB PO SCH ×2 (11:08→17:13)
--- NOTE | 2023-04-11 11:49 | Psychiatric Progress Note ---
Date of Service April 11, 2023 Impression / Recommendations Impression 22 yo male with a hx of sertraline for non-specific anxiety presenting with worsening mood/SI in the context of cannabis abuse resulting in hyperemesis undoubtedly complicated by abrupt SSRI discontinuation. Overall, I spent a total of 38 minutes with this case, including review of chart/records, direct evaluation of the patient, counseling the patient, coordination with nursing and social work, risk assessment, and documentation. (1) Suicidal ideations: (2) Major depressive disorder with single episode: (3) Selective serotonin reuptake inhibitor (SSRI) discontinuation syndrome: (4) Cannabis hyperemesis syndrome concurrent with and due to cannabis abuse: Plan 04/11/2023: improving, mild N which is trigger for SI but denies SI here and is more redirectible. Risks/benefits/alternatives reviewed re: Sathya. 04/10/2023: continue antacids and prn Zofran, family involvement 04/09/2023: The patient was admitted to the [facility] ([facility]) on q15 min checks (behavioral with suicide precautions) for safety. The patient will participate in group, recreational, and milieu therapies and will be offered additional individual and family sessions as clinically appropriate. Will start proton pump inhibitor and readdress psychiatric medications when >24 hrs from emesis. Collateral from family likely also prove helpful. He is not having specific abdominal pain so capsaicin less likely to be helpful. Did benefit from Zofran prn as was placed on private room given several episodes of vomiting. The patient's has already discontinued cannabis but his use was problematic, particularly in combination with SSRI. Brief intervention was greater than 5 min in length and included assessing his ongoing readiness to quit, advice on how to reduce or abstai, and to set a specific goal for this hospitalization. He states he will continue to abstain and wasn't hard to quit. Inventory Assets Strengths: employed, tolerating 302 process Needs: safety plan, outpatient providers Suicide Risk Level Suicide Risk Level: Moderate (q15 min suicide checks) Risk Factors Assessment Male: Yes Do You Have Access To A Gun?: Yes (Father has guns in the home.) Previous Attempt: No Previous Psychiatric Hospitalization: No Protective Factors Assessment Employed: Yes ([employer]) Supportive Family: Yes Interval History Identifying Information CONCHA GOMEZ is a 22-year-old M who currently lives in [place] and was admitted on 04/08/23 15:06 on a 302 involuntary commitment for SI with a plan to shoot himself. Chief Complaint "I think I should restart something for this N". Review of Systems Sleep Information Total Hours of Sleep: 7.5 Meal Information Percent Meal Consumed - Breakfast: 80 Percent Meal Consumed - Lunch: 100 Percent Meal Consumed - Dinner: 100 Nutrition Comment: Denied any nausea or emesis after meal. Subjective Subjective Patient was seen & assessed and interval progress reviewed with nursing and social work. Patient has not been attending any unit programming but is otherwise cooperative/pleasant. Ongoing improvement in mood and stomach issues. Took Zofran twice yesterday. Mother contacted by SW about family meeting. He is currently not agreeing to aftercare other than PCP. Physical Exam Psychiatric Orientation: alert and oriented x 3 Apperance: appropriately dressed and appropriately groomed Eye Contact: good eye contact Motor Behavior: no abnormal motor movements Speech: normal rate/rhythm/volume of speech Affect: euthymic affect Mood: no depressed mood Thought Process: goal directed thought process Thought Content: reality based without delusions Suicidal Thoughts: denies suicidal thoughts Homicidal Thoughts: denies homicidal thoughts Hallucinations: no auditory hallucinations and no visual hallucinations Cognition: attention grossly intact and language grossly intact Estimated Intelligence: consistent with education level Insight: + limited insight Judgment: + limited judgement Vital Signs (Past 24 Hours) Last Vital Signs Temp 36.8 C 04/11/23 06:36 Pulse 63 04/11/23 06:36 Resp 18 04/11/23 06:36 BP 117/76 04/11/23 06:36 Pulse Ox 98 04/08/23 16:05 O2 Del Method Room Air 04/08/23 16:05 Results & Data ([facility]) Current Inpatient Medications Current Inpatient Medications: Current Inpatient Medications Acetaminophen (Acetaminophen 325 Mg Tab) 650 mg PO Q4H PRN PRN Reason: Headache or Minor Fever Stop: 05/08/23 15:05 Last Admin: 04/10/23 22:46 Dose: 650 mg Al Hydrox/Mg Hydrox/Simethicone (Aluminum/Magnesium Susp 30 Ml Udc) 30 ml PO Q4H PRN PRN Reason: Gi Upset Stop: 05/08/23 15:05 Bismuth Subsalicylate (Bismuth Subsalicylate Liqd 236 Ml) 15 ml PO PRN PRN PRN Reason: Loose Stool Stop: 05/08/23 15:05 Buspirone HCl (Buspirone 5 Mg Tab) 5 mg PO BIDM [facility] Stop: 05/11/23 10:34 Last Admin: 04/11/23 11:08 Dose: 5 mg Capsaicin (Capsaicin Cr 0.075% 60 Gm Tube) 1 appln EXT QID PRN PRN Reason: Nausea Stop: 05/08/23 15:07 Last Admin: 04/09/23 18:16 Dose: 1 appln Hydroxyzine HCl (Hydroxyzine Hcl 25 Mg Tab) 50 mg PO HSZ PRN PRN Reason: Insomnia Stop: 05/08/23 15:05 Hydroxyzine HCl (Hydroxyzine Hcl 25 Mg Tab) 25 mg PO Q4H PRN PRN Reason: Anxiety Stop: 05/08/23 15:05 Lansoprazole (Lansoprazole 30 Mg Soltab) 30 mg PO BID [facility] Stop: 05/09/23 10:14 Last Admin: 04/11/23 09:00 Dose: 30 mg Magnesium Hydroxide (Magnesium Hydroxide Susp 30 Ml Udc) 30 ml PO DAILY PRN PRN Reason: Constipation Stop: 05/08/23 15:05 Miscellaneous (Remove Nicoderm Patch) 1 each N/A DAILY@[id number] [facility] Stop: 05/09/23 08:58 Last Admin: 04/11/23 09:00 Dose: 1 each Nicotine (Nicotine 21 Mg/24 Hr Tdsy) 21 mg TD QAM [facility] Stop: 05/09/23 08:59 Last Admin: 04/11/23 09:00 Dose: 21 mg Nicotine Polacrilex (Nicotine Polacrilex 2 Mg Gum) 2 piece MT PRN PRN PRN Reason: smoking cessation Stop: 05/10/23 16:42 Last Admin: 04/10/23 16:49 Dose: 2 piece Ondansetron HCl (Ondansetron 8mg Od Tab) 8 mg PO Q8H PRN PRN Reason: Vomiting Stop: 05/08/23 19:17 Last Admin: 04/11/23 10:51 Dose: 8 mg Sodium Chloride (Sodium Chloride 0.65% Na Soln 45 Ml ([place])) 2 sprays NA PRN PRN PRN Reason: Nasal Dryness/Congestion Stop: 05/08/23 15:05 Mental Health & Subst Abuse Tx Therapist Name of Therapist: None Hall Manager Name of Hall Manager: None Post Discharge Appointments Primary Care Physician Name Of Family Doctor/PCP: [facility] Date of Future Appointment with PCP: 04/18/23 Time of Appointment with PCP: arrive at 3:05 PM Provider Appointment Comment: Chris Monzon, MURALI Verde Contact Information Discharge Discharge [address]: [address] [place] [address], [place] [address]
[2023-04-12 05:57] LABS: Marijuana Quant, GCMS Urine 62 ng/mL (<5)
[2023-04-12] MEDS: LANSOPRAZOLE 30 MG SOLTAB PO SCH (09:02)
[2023-04-12] MEDS: busPIRone 5 MG TAB PO SCH (09:02)
[2023-04-12] MEDS: NICOTINE 21 MG/24 HR TDSY TD SCH (09:06)
[2023-04-12] MEDS: ONDANSETRON 8MG OD TAB PO PRN (10:06)
--- NOTE | 2023-04-12 18:07 | Discharge Summary ---
Date of Service April 12, 2023 History of Present Illness Kenny states he had been taking sertraline 100 mg for "maybe a year" for non specific anxiety and using MJ regularly until 2-3 weeks ago when he abruptly stopped the SSRI. He claims it made him feel more jittery and possibly nauseated, though actually noticed the latter got worse when he smoked MJ. He did not directly quantify his use, mainly flower/sometimes tinctures; he seemed unfamiliar with the THC levels of products or if they were reputably sourced. He seemed quite certain he did not use synthetics. He stopped MJ a week ago as "I just didn't feel right in the head, like maybe I have a dissociative disorder or something." He does describe ongoing feelings of disconnect and worsening sensation of vomiting after eating despite discontinuing cannabis. He did vomit last pm after eating pizza for dinner and described feeling sick again today. Apparently he has had some work up in the past for reflux but denied ever taking antacids. He did not describe any specific stressors other than his sensation of vomiting that caused him to feel suicidal. He denies hx of self-harm. Although he does not have access to a gun at home he had reported in the ED that it was difficult for him not to act on the urges. Despite the irritability toward family noted in ED last pm, he denies issues relating to his adoptive parents. 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 He has had a harder time getting up in the am to make it to work at [employer] by 5 am. He has worked there for 1.5 years and the holiday season is looming. Physical Exam Psychiatric See admission H&P and DOD assessment. Vital Signs (Past 24 Hours) Last Vital Signs Temp 36.6 C 04/12/23 13:58 Pulse 98 H 04/12/23 13:58 Resp 16 04/12/23 13:58 BP 127/84 04/12/23 13:58 Pulse Ox 98 04/12/23 13:58 O2 Del Method Room Air 04/08/23 16:05 Principal Diagnosis depression Psychiatric Data See daily stay summary. In short, safety was maintained and the patient was cooperative with care. Medication changes included initiation of antacid and Zofran prn for GI symptoms and they tolerated this well. He was interested in restarting anxiety medication and low dose Buspar was started yesterday. He did not engage in any programming on the unit and became disinterested in 1-on-1 meetings as his symptoms improved. A family session was held and safety plan was completed prior to discharge. Use of MJ likely contributed significantly to his presentation and he was encouraged to continue to abstain. Day of Discharge Assessment Today the patient continues to voice readiness for discharge. They note improvement in nausea which was the main trigger for their SI. Thoughts remain concrete but organized. There is no evidence of psychosis. They agree to take mediations as prescribed and keep follow-up appointments though repeatedly declined therapy. They are stable for discharge to outpatient level of care. Transition of Care Transition Of Care Record: was reviewed with the patient Advance Directives Advance Directives Information Provided: Yes Advance Directives: No Mental Health Advance Directive: No Advance Directives on File: No Living Will: No Power of Health Care Marketing Manager: No Advance Directives Reason:: Declines as Mental Health Visit. Risk Factors Assessment Male: Yes Do You Have Access To A Gun?: No (confirmed no access with mother per meeting prior to discharge) Previous Attempt: No Previous Psychiatric Hospitalization: No Protective Factors Assessment Employed: Yes ([employer]) Supportive Family: Yes Tobacco Cessation at Discharge Tobacco Cessation Medication Prescribed at Discharge: Offered & Pt Refused Total Time Total Time Spent: Less Than 30 Minutes (25) Total Time Includes: Examination of the patient, Discharge Planning, Medication Reconciliation and Communication with other providers Discharge Data Consultations [facility] hospitalist was notified of patient's hospitalization given [facility] PCP and active GI symptoms. If GI symptoms persist and abdominal CT may be performed as an outpatient. Lab Results 04/08/23 04/08/23 04/08/23 11:05 11:05 11:05 WBC RBC Hgb Hct MCV MCH MCHC RDW Std Deviation RDW Coeff of Islva Plt Count MPV Immature Gran % (Auto) Neut % (Auto) Lymph % (Auto) Whitfield % (Auto) Eos % (Auto) Baso % (Auto) Neut # (Auto) Lymph # (Auto) Whitfield # (Auto) Eos # (Auto) Baso # (Auto) Immature Gran # (Auto) Sodium Potassium Chloride Carbon Dioxide Anion Gap BUN Creatinine Est Cr Clr Drug Dosing Est GFR ( Amer) Est GFR (Non-Af Amer) BUN/Creatinine Ratio Glucose Calcium Total Bilirubin AST ALT Alkaline Phosphatase Total Protein Albumin Globulin Albumin/Globulin Ratio TSH Urine Color Yellow Urine Appearance Clear Urine pH 6.0 Ur Specific [place] 1.014 Urine Protein Negative Urine Glucose (UA) Negative Urine Ketones 1+ H Urine Blood Negative Urine Nitrite Negative Urine Bilirubin Negative Urine Urobilinogen Negative Ur Leukocyte Esterase Negative Salicylates Urine Opiates Screen Neg Ur Methadone, Qual Neg Acetaminophen Urine Barbiturates Neg Ur Phencyclidine (PCP) Neg U Amphetamin/Meth Scrn Neg MDMA (Ecstasy) Screen Neg U Benzodiazepines Scrn Neg Ur Cocaine Metabolite Neg U Marijuana (THC) Screen Pos H U Marijuana THC Carboxy 62 H Drug Screen Comment SEE NOTE Ethyl Alcohol mg/dL SARS-CoV-2, RNA, NAAT 04/08/23 04/08/23 04/08/23 11:08 11:08 11:08 WBC 8.36 RBC 5.41 Hgb 16.4 Hct 46.5 MCV 86.0 MCH 30.3 MCHC 35.3 RDW Std Deviation 38.6 RDW Coeff of Silva 12.3 Plt Count 246 MPV 9.4 Immature Gran % (Auto) 0.2 Neut % (Auto) 67.0 Lymph % (Auto) 23.2 Whitfield % (Auto) 8.0 Eos % (Auto) 1.1 Baso % (Auto) 0.5 Neut # (Auto) 5.60 Lymph # (Auto) 1.94 Whitfield # (Auto) 0.67 H Eos # (Auto) 0.09 Baso # (Auto) 0.04 Immature Gran # (Auto) 0.02 Sodium 135 L Potassium 3.9 Chloride 103 Carbon Dioxide 24 Anion Gap 8 BUN 17 Creatinine 1.03 Est Cr Clr Drug Dosing 119.3 Est GFR ( Amer) 120.6 Est GFR (Non-Af Amer) 104.1 BUN/Creatinine Ratio 16.5 Glucose 106 H Calcium 9.9 Total Bilirubin 1.3 H AST 15 ALT 12 Alkaline Phosphatase 56 Total Protein 7.7 Albumin 5.2 H Globulin 2.5 Albumin/Globulin Ratio 2.1 H TSH 0.366 Urine Color Urine Appearance Urine pH Ur Specific [place] Urine Protein Urine Glucose (UA) Urine Ketones Urine Blood Urine Nitrite Urine Bilirubin Urine Urobilinogen Ur Leukocyte Esterase Salicylates < 3.0 L Urine Opiates Screen Ur Methadone, Qual Acetaminophen < 3 L Urine Barbiturates Ur Phencyclidine (PCP) U Amphetamin/Meth Scrn MDMA (Ecstasy) Screen U Benzodiazepines Scrn Ur Cocaine Metabolite U Marijuana (THC) Screen U Marijuana THC Carboxy Drug Screen Comment Ethyl Alcohol mg/dL SARS-CoV-2, RNA, NAAT 04/08/23 04/08/23 11:08 11:08 WBC RBC Hgb Hct MCV MCH MCHC RDW Std Deviation RDW Coeff of Silva Plt Count MPV Immature Gran % (Auto) Neut % (Auto) Lymph % (Auto) [place] % (Auto) Eos % (Auto) Baso % (Auto) Neut # (Auto) Lymph # (Auto) [place] # (Auto) Eos # (Auto) Baso # (Auto) Immature Gran # (Auto) Sodium Potassium Chloride Carbon Dioxide Anion Gap BUN Creatinine Est Cr Clr Drug Dosing Est GFR ( Amer) Est GFR (Non-Af Amer) BUN/Creatinine Ratio Glucose Calcium Total Bilirubin AST ALT Alkaline Phosphatase Total Protein Albumin Globulin Albumin/Globulin Ratio TSH Urine Color Urine Appearance Urine pH Ur Specific [place] Urine Protein Urine Glucose (UA) Urine Ketones Urine Blood Urine Nitrite Urine Bilirubin Urine Urobilinogen Ur Leukocyte Esterase Salicylates Urine Opiates Screen Ur Methadone, Qual Acetaminophen Urine Barbiturates Ur Phencyclidine (PCP) U Amphetamin/Meth Scrn MDMA (Ecstasy) Screen U Benzodiazepines Scrn Ur Cocaine Metabolite U Marijuana (THC) Screen U Marijuana THC Carboxy Drug Screen Comment Ethyl Alcohol mg/dL < 10.0 SARS-CoV-2, RNA, NAAT NEGATIVE Hospital Course (1) Suicidal ideations: (2) Major depressive disorder with single episode: revised to depressive disorder at discharge as more anxiety component than actual vegetative symptoms (3) Selective serotonin reuptake inhibitor (SSRI) discontinuation syndrome: (4) Cannabis hyperemesis syndrome concurrent with and due to cannabis abuse: Mental Health & Subst Abuse Tx Therapist Name of Therapist: [facility] Therapist's Therapy Appointment Comment: Please follow up to establish therapy services. Bulk Tank Car Unloader Name of Bulk Tank Car Unloader: None Post Discharge Appointments Primary Care Physician Name Of Family Doctor/PCP: Sonja [facility] Date of Future Appointment with PCP: 04/18/23 Time of Appointment with PCP: arrive at 3:05 PM Provider Appointment Comment: Chris Monzon, MURAL[facility] Verde [facility] Release of Information: Obtained, Reviewed and Signed Smoking Cessation Counseling Tobacco Cessation Medication Prescribed at Discharge: Offered & Pt Refused Contact Information Discharge Discharge [address]: [address] [place] [address] Discharge Plan Discharge Items Patient Disposition: Home - Self-Care Reason For Visit: DEPRESSIVE DISORDER Discharge Diagnosis: same Activity: Resume your previous activity Non-emergency contact: Primary Care Provider Call non-emergency contact if: you have any medication questions and your symptoms worsen Follow-up/Referrals: Rad Hill MD [Primary Care Provider] - Diet: Regular Addtl Attending Provider Instructions: SPECIAL CARE INSTRUCTIONS: 1. Follow through with your scheduled aftercare appointments. If unable to keep an appointment, please call to reschedule. 2. Take your medication only as prescribed. Medication should not be changed or stopped without the approval of your doctor. In the event of worsening symptoms or concerns about side effects, contact your doctor immediately. 3. Utilize new healthy coping skills, anger management skills, and stress management skills learned during your hospitalization. Journal feelings and process them with a support person. Identify stressors or situations that may result in relapse, deterioration or inappropriate behaviors and develop a plan to deal with those issues. 4. If your coping skills are ineffective and you are in crisis, contact your outpatient providers for direction. If unable to reach your providers, please call the [facility] CRISIS LINE AT , go to the [facility] walk-in center at [address], [address], [place], or go to the closest Emergency Room. 5. Avoid alcohol and un-prescribed drugs. 6. You have been provided with the Mental Health Advance Directives Pamphlet for your review. 7. Your condition is stable for discharge to outpatient level of care, but recovery is an ongoing process. Ifthoughts to harm yourself or others return, follow the safety plan developed during your stay. Planning for a safe return home includes securing weapons. Our treatment team recommends weaponsbe removed from the home until your outpatient provider reassesses your progress. In rare cases where the items themselvescannot be removed, guns and ammunitionshould be secured separatelyand keys stored by a reliable personoutside of the home. If you were admitted on an involuntary commitment, the police or other legal authorities may be involved in this process. AFTERCARE APPOINTMENTS: * Please call your insurance company prior to your scheduled appointment to confirm your aftercare providers are covered. Take your insurance information to your appointments. WHO TO CALL AND WHEN: Medical Emergencies: For questions or emergencies related to your hospital stay, please contact the Inpatient Behavioral Health Unit at [phone]. A sales performance manager is on-call 23/01 for the Behavioral Health Unit for emergencies At any time you feel your situation is an emergency, you may also call 911 immediately. Pending Studies at Discharge: No Stand-Alone Forms: My [facility], Smoking Cessation Medications and DC Order Prescriptions: New buspirone 5 mg Tablet 5 mg PO BIDM Qty: 60 0RF lansoprazole 30 mg capsule,delayed release(DR/EC) 30 mg PO DAILY 30 Days Qty: 30 0RF ondansetron 8 mg Tablet,Disintegrating 8 mg PO BID PRN (Reason: Nausea) Qty: 14 0RF Discharge Orders: Discharge Order (Routine); Ordered 04/12/23 Ordered By: Kati Monahan Admission Data Admit Date/Time: 04/08/23 15:06 Attending Provider: Kati Monahan Admit Provider: Kati Monahan Primary Care Provider: Rad Hill Other Interventions: Discharge Summary Assessment (RN) Last Done: 04/12/23 13:58 PSY Interdisciplinary Discharge Planning Last Done: 04/12/23 14:17 Coding Level of Care Code 07338 D/C day mgmt 30 min or < Diagnoses Suicidal ideations R45.851 Major depressive disorder with single episode F32.9 Selective serotonin reuptake inhibitor (SSRI) discontinuation syndrome T43.205A Cannabis hyperemesis syndrome concurrent with and due to cannabis abuse F12.188
== END 2023-04-12 14:42 | disposition home or self-care (01) | DRG 881 ==
LOC: ED 10:40 → 3S 15:06

== ENCOUNTER 2023-07-13 17:15 | Inpatient (IN) ==
[2023-07-13 17:50] LABS: Appearance Urine Clear (Clear); Bilirubin Urine Negative (Negative); Blood Urine Negative (Negative); Color Urine Yellow; Glucose Urine UA Negative (Negative); Ketones Urine Negative (Negative); Leukocyte Esterase Urine Negative (Negative); Nitrite Urine Negative (Negative); Protein Urine Negative (Negative); Specific Gravity Urine 1.014 (1.000-1.030); Urobilinogen Urine Negative (Negative); pH Urine 7.5 (4.5-7.5)
[2023-07-13 18:23] LABS: Amphetamines+Metham, Urine Neg (Neg); Barbiturates, Urine Neg (Neg); Benzodiazepine, Urine Neg (Neg); Cocaine, Urine Neg (Neg); MDMA (Ecstacy), Urine Neg (Neg); Marijuana, Urine Neg (Neg); Methadone, Urine Neg (Neg); Opiate, Urine Neg (Neg); Phencyclidine, Urine Neg (Neg)
--- NOTE | 2023-07-13 18:24 | Emergency Department Note ---
Impression & Plan Suicidal ideations, Acute anxiety, Depression ED Provider Note NAME: CONCHA GOMEZ AGE: 22 SEX: M : 2000 ARRIVES VIA: Walk-In INFORMANT: Patient ED PROVIDER(S): Suman Kitchen DO CHIEF COMPLAINT: Depression HPI: Patient is a 22-year-old male who presents to the ER as he is having trouble focusing. He has thoughts racing through his head at night and he is having trouble sleeping. He denies any suicidal homicidal ideations. No auditory or visual hallucinations. He notes he is not really eating or drinking. He has been going to work. Generally goes to bed around 12 AM and wakes up around 4 AM as he works for [employer]. No drugs other than marijuana. He notes he was admitted here recently and this did not help. He does follow with a therapist who referred him in. Additional history obtained from mom and dad who are present at bedside that notes that about 1 and 5 days he is himself. Otherwise he has mood swings and is very agitated. Normal he notes that he has been asking for a gun so he can kill himself. ADDITIONAL HISTORY OBTAINED: Per HPI Chronic Medical/Social Conditions Affecting Care: Per HPI PAST MEDICAL HISTORY:See Below PAST SURGICAL HISTORY:See Below FAMILY HISTORY:See Below SOCIAL HISTORY:See Below HOME MEDICATIONS:See Below ALLERGIES:See Below VITALS:See Below PHYSICAL EXAMINATION: GENERAL: Sitting up in bed, alert, well appearing, well nourished, no distress, non-toxic EYE EXAM: normal conjunctiva. OROPHARYNX: no exudate, no erythema, lips, buccal mucosa, and tongue normal and mucous membranes are moist NECK: supple, no nuchal rigidity, no adenopathy, non-tender LUNGS: Clear to auscultation. Normal chest wall mechanics HEART: no murmurs, S1 normal and S2 normal ABDOMEN: abdomen soft, non-tender, normo-active bowel sounds, no masses, no rebound or guarding. UPPER EXTREMITIES: upper extremities are grossly normal. LOWER EXTREMITIES: No pitting edema. NEURO EXAM: Normal sensorium, cranial nerves II-XII grossly intact, normal speech, no gross weakness of arms, no gross weakness of legs. PSYCH: Denies any suicidal homicidal ideations. No auditory visual loose Nations. MEDICAL DECISION MAKING: Patient is a 22-year-old male who presents ER for the above-stated complaint. Labs were obtained and show no significant leukocytosis or anemia. BMP along LFTs bilirubin and TSH is unremarkable. UA was clean. Tox was negative. Alcohol negative. COVID-negative. Patient is not forthcoming as he was requesting a gun from his parents to kill himself. He has clear suicidal ideations. Patient does have some poor insight and does appear to be having mood swings and very impulsive and unable to control himself. We recommended admission and he declined. 302 was upheld and he was admitted to [facility] after discussion with her psychiatric long term care social worker to evaluate the patient and made the referral. Consults/Care Managements Discussions: Per [facility] Triage Nursing notes reviewed. Limited review of prior medical records performed Vital Signs: reviewed and remarkable for no significant abnormalities Differential diagnosis: Mood disorder, infection, hypoglycemia, electrolyte abnormalities, cardiac sources, intracerebral event, toxicologic, trauma, neurologic, as well as other pathologies. ER treatment provided: See below Diagnostics interpreted by me include EKG and cardiac monitoring as listed below: -ECG: none -Laboratory studies:Interpreted by me as stated above in MDM and shown below. Imaging studies: Xrays: As interpreted by me:none CTs show: none Procedures:none Critical Care: None Past Med/Surg History Medical History Cannabis hyperemesis syndrome concurrent with and due to cannabis abuse Major depressive disorder with single episode Recurrent vomiting Suicidal ideations Social History Smoking Status: Current every day smoker Tobacco Type: Cigarettes Preferred Language: Russian Communication Ability: Effective Commodity Trader Required: No Beliefs That Will Affect Care: None Feels Safe at Home: Yes Gender Identity: Male Assistive Devices: None Allergies Allergies Allergy/AdvReac Type Severity Reaction Status Date / Time No Known Allergies Allergy Unverified 07/11/21 18:39 Home Meds Previous Rx's Medication Instructions Recorded buspirone 5 mg tablet 5 mg PO BIDM #60 tabs 04/12/23 ondansetron 8 mg disintegrating 8 mg PO BID PRN Nausea #14 tabs 04/12/23 tablet Results & Data (ED) Vital Signs Vital Signs - 24 hr 07/13/23 17:20 Temperature 37.3 C Temperature Source Temporal Artery Scan Pulse Rate 104 H Respiratory Rate 20 Respiratory Effort / Characteristics Non-Labored Spontaneous Respiratory Depth Normal Blood Pressure 154/80 H Blood Pressure Mean 104 Pulse Oximetry 96 Sepsis Recent Fever Within 48 Hours No Sepsis New/Unexplained Change in Mental Status No Sepsis Action Taken by Nursing No Action Required Laboratory Data 07/13/23 18:27 07/13/23 18:27 Lab Results 07/13/23 07/13/23 Range/Units 17:35 18:27 WBC 7.21 (4.8-10.8) K/ul RBC 5.25 (4.70-6.10) M/uL Hgb 15.7 (14.0-18.0) g/dl Hct 44.5 (42.0-52.0) % MCV 84.8 (80.0-100.0) fL MCH 29.9 (25.0-34.0) pg MCHC 35.3 (32.0-36.0) g/dL RDW Std Deviation 37.2 (36.4-46.3) fL RDW Coeff of Silva 12.2 (11.5-14.5) % Plt Count 220 (130-400) K/uL MPV 9.5 (9.4-12.4) fL Immature Gran % (Auto) 0.0 % Neut % (Auto) 47.9 % Lymph % (Auto) 39.7 % Benton % (Auto) 9.2 % Eos % (Auto) 2.6 % Baso % (Auto) 0.6 % Neut # (Auto) 3.46 (1.40-6.50) K/uL Lymph # (Auto) 2.86 (1.20-3.40) K/uL Benton # (Auto) 0.66 H (0.11-0.59) K/uL Eos # (Auto) 0.19 (0.00-0.50) K/uL Baso # (Auto) 0.04 (0.00-0.20) K/uL Immature Gran # (Auto) 0.00 L (0.01-0.20) K/uL Sodium 140 (136-145) mmol/L Potassium 4.2 (3.5-5.1) mmol/L Chloride 105 (98-107) mmol/L Carbon Dioxide 29 (21-32) mmol/L Anion Gap 6 (3-11) BUN 10 (6-23) mg/dl Creatinine 0.66 (0.6-1.4) mg/dl Est Cr Clr Drug Dosing 176.5 ml/min Est GFR ( Amer) > 150.0 ml/min Est GFR (Non-Af Amer) 139.2 ml/min BUN/Creatinine Ratio 15.2 (10-20) Glucose 95 (70-99(Fasting)) mg/dl Calcium 10.3 (8.6-10.3) mg/dl Total Bilirubin 0.7 (0.2-1.0) mg/dl AST 15 (13-39) U/L ALT 12 (7-52) U/L Alkaline Phosphatase 55 (34-104) U/L Total Protein 7.6 (6.0-8.3) gm/dl Albumin 5.1 H (3.4-5.0) gm/dl Globulin 2.5 (2.5-4.0) gm/dl Albumin/Globulin Ratio 2.0 (0.9-2) TSH 1.290 (0.300-4.500) uIu/ml Urine Color Yellow Urine Appearance Clear (Clear) Urine pH 7.5 (4.5-7.5) Ur Specific Gordo 1.014 (1.000-1.030) Urine Protein Negative (Negative) Urine Glucose (UA) Negative (Negative) Urine Ketones Negative (Negative) Urine Blood Negative (Negative) Urine Nitrite Negative (Negative) Urine Bilirubin Negative (Negative) Urine Urobilinogen Negative (Negative) Ur Leukocyte Esterase Negative (Negative) Salicylates < 3.0 L (3.0-30) mg/dl Urine Opiates Screen Neg (Neg) Ur Methadone, Qual Neg (Neg) Acetaminophen < 3 L (10-30) ug/ml Urine Barbiturates Neg (Neg) Ur Phencyclidine (PCP) Neg (Neg) U Amphetamin/Meth Scrn Neg (Neg) MDMA (Ecstasy) Screen Neg (Neg) U Benzodiazepines Scrn Neg (Neg) Ur Cocaine Metabolite Neg (Neg) U Marijuana (THC) Screen Neg (Neg) Ethyl Alcohol mg/dL < 10.0 (<10.0) mg/dl SARS-CoV-2, RNA, NAAT NEGATIVE (NEGATIVE) Administered Medications Hydroxyzine HCl (Hydroxyzine Hcl 25 Mg Tab) 50 mg PO HSZ PRN PRN Reason: Insomnia Stop: 08/12/23 22:35 Last Admin: 07/13/23 22:52 Dose: 50 mg Documented By: VDS Discharge Plan Visit Data Chief Complaint: Anxiety Stated Complaint: ANXIETY ED Provider: Suman Kitchen Discharge Problem: Suicidal ideations, Acute anxiety, Depression Patient Disposition: Admitted As Inpatient Discharge Instructions Interventions: ED Discharge Assessment Last Done: 07/13/23 22:21 Discharge Problem: Depression Qualifiers: Depression Type: unspecified Qualified Code(s): F32.A - Depression, unspecified
[2023-07-13 18:58] LABS: Basophils # (auto) 0.04 K/uL (0.00-0.20); Basophils % (auto) 0.6 %; Eosinophils # (auto) 0.19 K/uL (0.00-0.50); Eosinophils % (auto) 2.6 %; Hematocrit (blood only) 44.5 % (42.0-52.0); Hemoglobin 15.7 g/dl (14.0-18.0); Lymphocytes # (auto) 2.86 K/uL (1.20-3.40); Lymphocytes % (auto) 39.7 %; Mean Corpuscular Hemoglobin 29.9 pg (25.0-34.0); Mean Corpuscular Hgb Conc 35.3 g/dL (32.0-36.0); Mean Corpuscular Volume 84.8 fL (80.0-100.0); Mean Platelet Volume 9.5 fL (9.4-12.4); Monocytes # (auto) 0.66 K/uL (0.11-0.59); Monocytes % (auto) 9.2 %; Neutrophils # (auto) 3.46 K/uL (1.40-6.50); Neutrophils % (auto) 47.9 %; Platelet Count 220 K/uL (130-400); RDW Coefficient of Variation 12.2 % (11.5-14.5); RDW Standard Deviation 37.2 fL (36.4-46.3); Red Blood Count 5.25 M/uL (4.70-6.10); White Blood Count 7.21 K/ul (4.8-10.8)
[2023-07-13 19:07] LABS: Alanine Aminotransferase 12 U/L (7-52); Albumin Level 5.1 gm/dl (3.4-5.0); Alkaline Phosphatase 55 U/L (34-104); Anion Gap 6 (3-11); Aspartate Aminotransferase 15 U/L (13-39); BUN Creatinine Ratio 15.2 (10-20); Bilirubin,Total 0.7 mg/dl (0.2-1.0); Blood Urea Nitrogen 10 mg/dl (6-23); Calcium 10.3 mg/dl (8.6-10.3); Carbon Dioxide 29 mmol/L (21-32); Chloride 105 mmol/L (98-107); Creatinine Clr Calc Pharmacy 176.5 ml/min; Est GFR (African American) > 150.0 ml/min; Est GFR (Non-African American) 139.2 ml/min; Globulin 2.5 gm/dl (2.5-4.0); Glucose 95 mg/dl (70-99(Fasting)); Potassium 4.2 mmol/L (3.5-5.1); Sodium 140 mmol/L (136-145); Total Protein 7.6 gm/dl (6.0-8.3)
[2023-07-13 19:20] LABS: Acetaminophen < 3 ug/ml (10-30); Salicylate < 3.0 mg/dl (3.0-30)
[2023-07-13] MEDS ORDERED: hydrOXYzine HCl 25 MG TAB PO PRN ×2 (22:36)
[2023-07-13] MEDS ORDERED: NICOTINE POLACRILEX 2 MG GUM MT PRN (22:36)
[2023-07-13] MEDS ORDERED: MAGNESIUM HYDROXIDE SUSP 30 ML UDC PO PRN (22:36)
[2023-07-13] MEDS ORDERED: SODIUM CHLORIDE 0.65% NA SOLN 45 ML (OCEAN) PRN (22:36)
[2023-07-13] MEDS ORDERED: ALUMINUM/MAGNESIUM SUSP 30 ML UDC PO PRN (22:36)
[2023-07-13] MEDS ORDERED: BISMUTH SUBSALICYLATE LIQD 236 ML PO PRN (22:36)
[2023-07-14] MEDS: NICOTINE 14 MG/24 HR PATCH TD SCH (09:13)
--- NOTE | 2023-07-14 10:43 | History & Physical ---
Date of Service July 14, 2023 Impression / Recommendations Impression 22 y/o M with a history of depression who has been increasingly preoccupied with concerns that he has some somatic or psychiatric problem about which he's read on the internet. Symptoms during his previous admission had been attributed largely to his heavy use of cannabinoids (in extract form) but he really does appear to have stopped that, as confirmed by his negative toxicology screen. He feels as if his mind is fragmenting, and his concentration is so bad as to affect his ability to function. Diagnostically, this could represent OCD, illness anxiety disorder, or schizophrenia. He doesn't endorse mood symptoms, but is very anxious. In part due to pt's explicit interest in antipsychotic medication and in part because of his very fragmented thought processes, risks and benefits of, and alternatives to, the use of aripiprazole (Abilify) for psychosis were reviewed. This discussion included but was not limited to issues known potentially to be associated with use of such medication, especially at high doses or with longer use, including sedation, weight gain, problems with glucose metabolism including Type II diabetes, problems with lipid metabolism, cardiac conduction problems, or rarely involuntary movements, parkinsonian symptoms, or even acute dystonia or life-threatening Neuroleptic Malignant Syndrome. Discussed the need for periodic monitoring of fasting glucose or Hemoglobin A1c and fasting lipid panel, which were ordered for baseline monitoring. The patient agreed to start a trial of aripiprazole. Overall I spent a total of 57 minutes on the floor for this admission including review of chart records, review of test results, direct evaluation of the patient [id number], counseling the patient, reconciling and ordering medication, medication education with the patient, risk assessment, discussion during interdisciplinary treatment rounds, and documentation in the electronic health record. (1) Unspecified psychosis not due to a substance or known physiological condition: Plan The patient was admitted to the [facility] ([facility] inpatient mental health unit) on q15 minute checks (behavioral with suicide precautions) for safety.The patient will participate in group, recreational, and milieu therapies and will be offered additional individual and family sessions as clinically appropriate. * start aripiprazole 5 mg daily * in addition to the screening labs ordered in the ED, will order vitamin B12 level, folic acid level, 25-OH vitamin D level, ESR to rule out conditions more pertinent to assessment of psychiatric symptoms * fasting lipid panel and glucose Inventory Assets Strengths: has local supports, voluntarily sought treatment, employed Needs: safety and stabilization, medication adjustment, additional coping skills, increased outpatient services Suicide Risk Level Suicide Risk Level: Moderate (q15 min suicide checks) (denies suicidal thoughts but has made suicidal statements when frustrated) Risk Factors Assessment Male: Yes : Yes Health Problems: No (but is convinced he some unknown serious condition) Mental Health Diagnoses: No Substance Use Disorders: Yes Previous Attempt: No Previous Psychiatric Hospitalization: Yes Hopelessness: No Protective Factors Assessment : No Responsible for Young Children: No Employed: Yes ([employer]) Supportive Family: Yes Psychiatric History Identifying Data CONCHA LUNA is a 22-year-old M who currently lives in [place] with his parents, has a history of anxiety, and was admitted on 07/13/23 22:03 on a 302 involuntary commitment for suicidal statements. Chief Complaint "My brain is falling apart". History of Present Illness As part of a thorough review of the available medical records, I have read and and incorporated into my assessment the following note by the ED physician: "Patient is a 22-year-old male who presents to the ER as he is having trouble focusing. He has thoughts racing through his head at night and he is having trouble sleeping. He denies any suicidal homicidal ideations. No auditory or visual hallucinations. He notes he is not really eating or drinking. He has been going to work. Generally goes to bed around 12 AM and wakes up around 4 AM as he works for [employer]. No drugs other than marijuana. He notes he was admitted here recently and this did not help. He does follow with a therapist who referred him in. Additional history obtained from mom and dad who are present at bedside that notes that about 1 and 5 days he is himself. Otherwise he has mood swings and is very agitated. Normal he notes that he has been asking for a gun so he can kill himself." the following note by the ED psychiatric bilingual case manager: "Met with Concha bedside to complete mental health evaluation. Adoptive parents remained in room with Concha's verbal consent. Concha stated he came to the ED "because thoughts in my head are mentally driving me crazy." Concha stated he is having difficulty with his memory and has decreased ability to concentrate/focus on things. He stated "its worse when it's dark outside." Concha stated he is perseverating on thought and "searching for reason" for his symptoms. Concha stated he is spending a great deal of time googling his symptoms. Parents feel Concha has extreme paranoia regarding his physical and mental health. Concha is diagnosed with depression and anxiety. Concha stated she was prescribed Sertraline but stopped taking it "cold turkey" approx. 2 weeks ago because he thought it was interacting with the THC he was using. Concha stated he has been using "90+ percent concentrated THC" for a long time and never had any adverse affects. Concha stated he started having cyclic vomiting and attributed it to the Sertraline. Concha stated he continued to feel worse after stopping the sertraline and quit using THC approx. 1-2 weeks ago. Concha stated he has thoughts of suicide "when I'm going really crazy." He stated "I don't want to live" feeling like this. Mother stated Concha will ask them to give him a gun so he can shoot himself. Concha confirmed that he frequently makes statements of wanting to kill himself with a gun. Concha stated "it gets to the point with my thoughts that I just want it to end." Concha stated he has no interest in things he used to enjoy. He stated "they are impossible to do. I can't focus on anything and chronically fatigued." Concha stated he can't sleep and has not been eating much. He denies HI or aggression. Parents stated he is increasingly irrational and irritable "which scares us." He denies hallucinations. He admits to paranoia regarding his physical/mental health. Mother stated he may be somewhat delusional regarding the cause of how he is feeling. Concha works at [employer] and is suspended from work due to frequent tardiness. Concha stated he cannot focus or concentrate at work which causes great difficulty doing his job. He stated "I start work in the dark which doesn't help." Concha lives with his adoptive parent. He denies trauma or abuse history. However, mother stated Concha is adopted from the and was in an orphanage there from age [age]. Adoptive mother stated it was reported that mother has mental health issues. Father when Concha was very young. Concha denies any other substance other than THC. He stated he consumes occasional alcohol. He sees a therapist at [place]. He has an upcoming appointment with his PCP/Dr. Hill on 07/24 for possible medication. Concha stated he "can't wait until then." Mother stated Concha has no friends and has difficulty with social interactions. He is withdrawn and isolative. Mother stated Concha has no access to firearms at home. Discussed recommendation for inpatient treatment with Concha. He is not agreeable with recommendation for inpatient. Concha stated he came to the ED to "get an antipsychotic or something." Explained ED physicians do not prescribe anti- psychotic medication due to need to be closely followed by provider. Concha stated "then I would rather go home and be crazy there." Explained concern for safety due to SI and reiterated recommendation for inpatient treatment. Discussed 201 vs 302. Explained if he was not willing to voluntarily consent to inpatient treatment then a petition would be completed and involuntary commitment process initiated. Concha stated "I'm not staying in the hospital." Spoke with Dr. Kitchen and updated on findings. Dr. Kitchen agreeable with recommendation for inpatient and agreeable with 302. Petitioning statement completed by this bilingual case manager. Mental health delegate contacted/Melany and warrant approved. [address] Kitchen. Concha was updated on involuntary commitment status and advised of next steps with mental health delegate arrives. " and the following note by the psychiatric liaison nurse: "Pt transported to the ER by his adoptive father for c/o racing thoughts; alexandre. at night, trouble sleeping and not eating or drinking for a "few weeks". Pt denies SI, HI or any hallucinations or delusions. Genna Mcgarry, ER CM, reported that Pt stated to her, "Just give me a antipsychotic and send me home". Pt's father also reported that Pt denies SI, but is constantly asking for a gun. A 302 commitment was initiated and Pt was evaluated by Melany rivas. Pt reported to this nurse that he just wants the crazy thoughts to stop". Pt recently was inpt at [facility] on 04/24 and states, I didn't get anything out of it". Pt also reported that he stopped that Buspar that was prescribed for him after it ran out and didn't help, because it didn't help. Pt also reports past use of Zoloft and and it made the thoughts worse. Pt did ask to be given Lexapro and was informed to speak to the doctor tomorrow regarding medications. Pt does report that he is able to go to work (works at [employer]), but his "crazy thoughts" are worse after the sun goes down. Pt reports daily THC use, but stopped a "few weeks ago" because it caused his racing thoughts to get worse, alexandre. at night. Pt denies any other drug use with rare ETOH use. Pt signed MEGHANA's for his PCP, Dr. Hill, [place] and his mother, Elizabeth Luna." Review of the medical record reflects that he was admitted to the [facility] here April 2023 with suicidal thoughts that he attributed to vomiting. He was id entified as having cannabis hyperemesis syndrome due to his substantial cannabis use. Pt was in the ED here 06/28 complaining of "brain fog" and requesting testing for heavy metal poisoning, on 06/04 to make sure he didn't have serotonin syndrome because he'd stopped sertraline 3 months previously. He was discharged from the [facility] in April 2023 with diagnoses of depression. Review of pertinent labs reveals they are noncontributory. A urine toxicology screen was negative for all tested substrates, including metabolites of cannabis. BAL was <10 mg/dL. Pt reports "psychosis", by which he means "inability to think". He feels as if his mind is fragmenting. He can't make decisions, is unable to concentrate, has "no short-term memory". He's preoccupied with all sorts of hypotheses to explain this, from heavy metal poisoning (had heavy metals screen but notes they didn't check for all metals), "some sort of toxin" (and asks for "the full panel" to test for every toxin), permanent brain damage from cannabininoid use, "serotonin syndrome" or some lasting brain damage from having used sertraline or having stopped it 3 months ago, etc., all of which involve impaired brain function due to some external substance. He currently is convinced he has delirium based on his internet searches, saying that he "can function during the day" but that "as soon as the sun goes down" loses the ability to think much at all. Pt would like "all the possible tests" to figure this out. He's had a head CT, lots of labs including heavy metals but would happily submit to more. He's not very convinced at all by my saying that there is a known psychiatric condition that involves cognitive impairment, difficulty focusing, and fragmented thinking, the risk of which peaks around his age and of which there's a higher risk in those who used cannabinoids during adolescence. He's pleasant and cooperative but very distracted with markedly impaired concentration and poor recall of earlier aspects of the interaction. Past Psychiatric History Current Psychiatric Diagnosis: MDD Previous Psych Admissions: [facility] April 2023 History of Previous Suicide Attempt: No Past Medication Trials: sertraline Allergies Allergy/AdvReac Type Severity Reaction Status Date / Time No Known Allergies Allergy Unverified 07/11/21 18:39 Home Medications Medication Instructions Recorded Confirmed Type buspirone 5 mg tablet 5 mg PO BIDM #60 tabs 04/12/23 Rx ondansetron 8 mg disintegrating 8 mg PO BID PRN Nausea #14 tabs 04/12/23 Rx tablet Family History Family History of: Doesn't Know Family Mental Health History Comment: Adoptive parents report biological mother may have had psych. issues. Alcohol History Hx of Alcohol Use Over the Past 12 Months: No AUDIT Total Score: 1 Smoking Use Have You Smoked or Used Tobacco Products in the Last 30 Days: Yes tobacco type: cigarettes Smoking Status: Current every day smoker Smoking packs per day: 1 Substance History Hx of Prescription Med Misuse Over the Past 12 Months: No Hx of Over the Counter Med Misuse Over the Past 12 Months: No Hx of Inhalent Misuse Over the Past 12 Months: No Hx of Organic Substance Use Over the Past 12 Months: Yes (THC) Hx of Illegal Substances/Street Drug Use Over Past 12 Months: No Problems as a Result of Past Substance Use: Life out of Control Problems as a Result of Past Substance Use Comments: Pt reports increased racing thoughts with THC use. Personal History Living Arrangements: Home Beliefs That Will Affect Care: None Hx Traumatic Life Events: No Patient History Medical History (Updated 07/14/23 @ 15:58 by Emmanuel Schofield MD) Unspecified psychosis not due to a substance or known physiological condition Cannabis hyperemesis syndrome concurrent with and due to cannabis abuse Major depressive disorder with single episode Recurrent vomiting Suicidal ideations Social History Smoking Status: Current every day smoker Tobacco Type: Cigarettes Preferred Language: Northern Irish Communication Ability: Effective Roll Mechanic Required: No Beliefs That Will Affect Care: None Feels Safe at Home: Yes Gender Identity: Male Assistive Devices: None Review of Systems Psychiatric: + abnormal sleep pattern, + anxiety and + difficulty concentrating; no hopelessness and no hallucinations Physical Exam Psychiatric: Orientation: alert, oriented to person, oriented to place, oriented to time and cooperative Apperance: appropriately dressed, appropriately groomed and appeared stated age Eye Contact: + fair eye contact Motor Behavior: no abnormal motor movements Speech: normal rate/rhythm/volume of speech Affect: + constricted affect Mood: + anxious mood Thought Process: + circumstantial thought process (markedly overinclusive), + flight of ideas and + concrete thought process Thought Content: + preoccupation, + delusions (somatic) and + ideas of reference Suicidal Thoughts: denies suicidal thoughts, denies suicidal plan and denies suicidal intent Homicidal Thoughts: denies homicidal thoughts Hallucinations: no auditory hallucinations and no visual hallucinations Cognition: remote memory grossly intact and language grossly intact; + recent memory not intact and + attention not intact (markedly poor concentration) Estimated Intelligence: consistent with education level Insight: + limited insight Judgment: + limited judgement Vital Signs (Past 24 Hours): Last Vital Signs Temp 36.3 C L 07/14/23 06:00 Pulse 80 07/14/23 06:17 Resp 16 07/14/23 06:00 BP 113/77 07/14/23 06:17 Pulse Ox 97 07/13/23 22:55 O2 Del Method Room Air 07/13/23 22:55 Exam Statement: A physical exam was performed in the ED for the purposes of medical clearance. I accept that physical as correct and adequate for the purposes of the inpatient physical exam. Results & Data ([facility]) Laboratory Results Laboratory Results - last 24 hr 07/13/23 07/13/23 17:35 18:27 WBC 7.21 RBC 5.25 Hgb 15.7 Hct 44.5 MCV 84.8 MCH 29.9 MCHC 35.3 RDW Std Deviation 37.2 RDW Coeff of Silva 12.2 Plt Count 220 MPV 9.5 Immature Gran % (Auto) 0.0 Neut % (Auto) 47.9 Lymph % (Auto) 39.7 [place] % (Auto) 9.2 Eos % (Auto) 2.6 Baso % (Auto) 0.6 Neut # (Auto) 3.46 Lymph # (Auto) 2.86 [place] # (Auto) 0.66 H Eos # (Auto) 0.19 Baso # (Auto) 0.04 Immature Gran # (Auto) 0.00 L Sodium 140 Potassium 4.2 Chloride 105 Carbon Dioxide 29 Anion Gap 6 BUN 10 Creatinine 0.66 Est Cr Clr Drug Dosing 176.5 Est GFR ( Amer) > 150.0 Est GFR (Non-Af Amer) 139.2 BUN/Creatinine Ratio 15.2 Glucose 95 Calcium 10.3 Total Bilirubin 0.7 AST 15 ALT 12 Alkaline Phosphatase 55 Total Protein 7.6 Albumin 5.1 H Globulin 2.5 Albumin/Globulin Ratio 2.0 TSH 1.290 Urine Color Yellow Urine Appearance Clear Urine pH 7.5 Ur Specific [place] 1.014 Urine Protein Negative Urine Glucose (UA) Negative Urine Ketones Negative Urine Blood Negative Urine Nitrite Negative Urine Bilirubin Negative Urine Urobilinogen Negative Ur Leukocyte Esterase Negative Salicylates < 3.0 L Urine Opiates Screen Neg Ur Methadone, Qual Neg Acetaminophen < 3 L Urine Barbiturates Neg Ur Phencyclidine (PCP) Neg U Amphetamin/Meth Scrn Neg MDMA (Ecstasy) Screen Neg U Benzodiazepines Scrn Neg Ur Cocaine Metabolite Neg U Marijuana (THC) Screen Neg Ethyl Alcohol mg/dL < 10.0 SARS-CoV-2, RNA, NAAT NEGATIVE Current Inpatient Medications Current Inpatient Medications: Current Inpatient Medications Acetaminophen (Acetaminophen 325 Mg Tab) 650 mg PO Q4H PRN PRN Reason: Headache or Minor Fever Stop: 08/12/23 22:35 Al Hydrox/Mg Hydrox/Simethicone (Aluminum/Magnesium Susp 30 Ml Udc) 30 ml PO Q4H PRN PRN Reason: GI Upset Stop: 08/12/23 22:35 Bismuth Subsalicylate (Bismuth Subsalicylate Liqd 236 Ml) 15 ml PO PRN PRN PRN Reason: Loose Stool Stop: 08/12/23 22:35 Hydroxyzine HCl (Hydroxyzine Hcl 25 Mg Tab) 50 mg PO HSZ PRN PRN Reason: Insomnia Stop: 08/12/23 22:35 Last Admin: 07/13/23 22:52 Dose: 50 mg Hydroxyzine HCl (Hydroxyzine Hcl 25 Mg Tab) 25 mg PO Q4H PRN PRN Reason: Anxiety Stop: 08/12/23 22:35 Magnesium Hydroxide (Magnesium Hydroxide Susp 30 Ml Udc) 30 ml PO DAILY PRN PRN Reason: Constipation Stop: 08/12/23 22:35 Miscellaneous (Remove Nicoderm Patch) 1 each N/A DAILY@0859 [facility] Stop: 08/13/23 08:58 Last Admin: 07/14/23 09:00 Dose: Not Given Nicotine (Nicotine 14 Mg/24 Hr Patch) 14 mg TD QAM [facility] Stop: 08/13/23 08:59 Last Admin: 07/14/23 09:13 Dose: 14 mg Nicotine Polacrilex (Nicotine Polacrilex 2 Mg Gum) 2 piece MT PRN PRN PRN Reason: Nicotine Withdrawal Symptoms Stop: 08/12/23 22:35 Sodium Chloride (Sodium Chloride 0.65% Na Soln 45 Ml ([place])) 1 - 2 sprays NA PRN PRN PRN Reason: Nasal Dryness/Congestion Stop: 08/12/23 22:35
[2023-07-14] MEDS: ARIPiprazole 5 MG TAB PO SCH (15:35)
[2023-07-14 16:18] LABS: Folate (Folic Acid),Ser orPlas 19.77 ng/ml (>5.38)
[2023-07-14] MEDS: ACETAMINOPHEN 325 MG TAB PO PRN (18:12)
[2023-07-15 07:45] LABS: Chol HDL Ratio 2.7 (0-5)
[2023-07-15] MEDS: NICOTINE 14 MG/24 HR PATCH TD SCH (09:04)
[2023-07-15] MEDS: ARIPiprazole 5 MG TAB PO SCH (09:04)
[2023-07-15] MEDS ORDERED: BENZTROPINE MESYLATE 1 MG TAB PO PRN (12:39)
[2023-07-15] MEDS ORDERED: ARIPiprazole 5 MG TAB PO ONE (12:39)
[2023-07-15] MEDS ORDERED: MAGNESIUM CITRATE 296 ML/BTL PO SCH (12:45)
--- NOTE | 2023-07-15 12:48 | Psychiatric Progress Note ---
Date of Service July 15, 2023 Impression / Recommendations Impression 22 y/o M with a history of depression who has been increasingly preoccupied with concerns that he has some somatic or psychiatric problem about which he's read on the internet. Symptoms during his previous admission had been attributed largely to his heavy use of cannabinoids (in extract form), patient now admits to heavy use of synthetic delta-9 and CBD preps prior to admission. Unclear how much of presentation is related to OCD vs. somatic delusion. He remains unwilling to sign a 201 commitment and voices need for assistance with constipation. Overall, I spent a total of 54 minutes with this case, including review of chart, review of records, direct evaluation of the patient, counseling the patient, ordering medication, coordination with nursing,coordination of care with [facility] service re: bowel prep, and documentation. (1) Unspecified psychosis not due to a substance or known physiological condition: Plan 08/15/23: given length of stay, late to add synthetic screens plus patient has already admitted to extensive use of oils and tinctures. Reviewed metabolic labs and indication for Abilify for ongoing mood/obsessive and psychotic symptoms. Patient willing to increase Abilify as unlikely to remain hospitalized past involuntary hold. Will increase to 10 mg total daily dose of Abilify starting today as no side effect. Re: GI complaints, pantoprazole helpful last admit but patient stopped following stay. Will offer low dose Mag citrate as patient unwilling to retry Miralax/other measures. 07/14/23: The patient was admitted to the [facility] ([facility] health unit) on q15 minute checks (behavioral with suicide precautions) for safety.The patient will participate in group, recreational, and milieu therapies and will be offered additional individual and family sessions as clinically appropriate. * start aripiprazole 5 mg daily * in addition to the screening labs ordered in the ED, will order vitamin B12 level, folic acid level, 25-OH vitamin D level, ESR to rule out conditions more pertinent to assessment of psychiatric symptoms * fasting lipid panel and glucose Inventory Assets Strengths: has local supports, voluntarily sought treatment, employed Needs: safety and stabilization, medication adjustment, additional coping skills, increased outpatient services Suicide Risk Level Suicide Risk Level: Moderate (q15 min suicide checks) (denies suicidal thoughts but has made suicidal statements when frustrated) Risk Factors Assessment Male: Yes : Yes Do You Have Access To A Gun?: Yes (Father has guns in home, secured from pt) Health Problems: No (but is convinced he some unknown serious condition) Mental Health Diagnoses: No Substance Use Disorders: Yes Previous Attempt: No Previous Psychiatric Hospitalization: Yes Hopelessness: No Protective Factors Assessment : No Responsible for Young Children: No Employed: Yes ([employer]) Supportive Family: Yes Interval History Identifying Information CONCHA GOMEZ is a 22-year-old M who currently lives in [place] with his parents, has a history of anxiety, and was admitted on 07/13/23 22:03 on a 302 involuntary commitment for suicidal statements. Chief Complaint "I just need a tube down my stomach to wash everything out." Review of Systems Sleep Information Total Hours of Sleep: 7 Meal Information Percent Meal Consumed - Breakfast: 90 Percent Meal Consumed - Lunch: 100 Percent Meal Consumed - Dinner: 100 Subjective Subjective Patient was seen & assessed and interval progress reviewed with nursing and social work. Patient known to me from previous stay where he presented with obsessive preoccupation with his N which was felt in part to be pot hypermesis. Although he was negative for THC on admission, today the patient provides with with multiple websites for synthetic products that he has been using regularly in unknown quantities. He denies use of delta-8 or Kratom but identified multiple Delta-9 products from at least 2 websites including an oil from [employer] and tinctures of delta-9, CBD, and HHC from [employer]. As last presentation he has very limited ability to process that medications do not immediately "fix my brain" and he uses terms like "sundowning" to describe diurnal variation in mood. Seems less focussed on heavy metals today and labs sent by Dr. Schofield are pending. Physical Exam Psychiatric Orientation: alert, oriented to person, oriented to place, oriented to time and cooperative Apperance: appropriately dressed, appropriately groomed and appeared stated age Eye Contact: + fair eye contact Motor Behavior: no abnormal motor movements Speech: normal rate/rhythm/volume of speech Affect: + constricted affect Mood: + anxious mood Thought Process: + circumstantial thought process (markedly overinclusive) and + concrete thought process Thought Content: + preoccupation and + ideas of reference Suicidal Thoughts: denies suicidal thoughts, denies suicidal plan and denies suicidal intent Homicidal Thoughts: denies homicidal thoughts Hallucinations: no auditory hallucinations and no visual hallucinations Cognition: recent memory grossly intact, attention grossly intact (markedly poor concentration) and language grossly intact Estimated Intelligence: consistent with education level Insight: + limited insight Judgment: + limited judgement Vital Signs (Past 24 Hours) Last Vital Signs Temp 36.9 C 07/15/23 06:00 Pulse 84 07/15/23 06:36 Resp 16 07/15/23 06:00 BP 113/72 07/15/23 06:36 Pulse Ox 97 07/13/23 22:55 O2 Del Method Room Air 07/13/23 22:55 Results & Data ([facility]) Laboratory Results Laboratory Results - last 24 hr 07/14/23 07/15/23 15:19 07:06 ESR 3 Fasting Glucose 98 Triglycerides 70 Cholesterol 128 LDL Cholesterol, Calc 66 VLDL Cholesterol, Calc 14 HDL Cholesterol 48 Cholesterol/HDL Ratio 2.7 Vitamin B12 640 25-OH Vitamin D Total 27.4 Folate 19.77 Arsenic Pending Lead Pending Mercury Pending Current Inpatient Medications Current Inpatient Medications: Current Inpatient Medications Acetaminophen (Acetaminophen 325 Mg Tab) 650 mg PO Q4H PRN PRN Reason: Headache or Minor Fever Stop: 08/12/23 22:35 Last Admin: 07/14/23 18:12 Dose: 650 mg Al Hydrox/Mg Hydrox/Simethicone (Aluminum/Magnesium Susp 30 Ml Udc) 30 ml PO Q4H PRN PRN Reason: GI Upset Stop: 08/12/23 22:35 Aripiprazole (Aripiprazole 5 Mg Tab) 5 mg PO ONE ONE Stop: 07/15/23 12:40 Aripiprazole (Aripiprazole 10 Mg Tab) 10 mg PO QAM BUDDY Stop: 08/15/23 08:59 Benztropine Mesylate (Benztropine Mesylate 1 Mg Tab) 1 mg PO Q6 PRN PRN Reason: Muscle Spasm Stop: 08/14/23 12:38 Bismuth Subsalicylate (Bismuth Subsalicylate Liqd 236 Ml) 15 ml PO PRN PRN PRN Reason: Loose Stool Stop: 08/12/23 22:35 Hydroxyzine HCl (Hydroxyzine Hcl 25 Mg Tab) 50 mg PO HSZ PRN PRN Reason: Insomnia Stop: 08/12/23 22:35 Last Admin: 07/13/23 22:52 Dose: 50 mg Hydroxyzine HCl (Hydroxyzine Hcl 25 Mg Tab) 25 mg PO Q4H PRN PRN Reason: Anxiety Stop: 08/12/23 22:35 Magnesium Citrate (Magnesium Citrate 296 Ml/Btl) 148 ml PO TODAY@ BUDDY Stop: 08/14/23 12:44 Magnesium Hydroxide (Magnesium Hydroxide Susp 30 Ml Udc) 30 ml PO DAILY PRN PRN Reason: Constipation Stop: 08/12/23 22:35 Miscellaneous (Remove Nicoderm Patch) 1 each N/A DAILY@0859 [facility] Stop: 08/13/23 08:58 Last Admin: 07/15/23 09:09 Dose: Not Given Nicotine (Nicotine 14 Mg/24 Hr Patch) 14 mg TD QAM [facility] Stop: 08/13/23 08:59 Last Admin: 07/15/23 09:04 Dose: 14 mg Nicotine Polacrilex (Nicotine Polacrilex 2 Mg Gum) 2 piece MT PRN PRN PRN Reason: Nicotine Withdrawal Symptoms Stop: 08/12/23 22:35 Pantoprazole Sodium (Pantoprazole 40 Mg Tab) 40 mg PO BID [facility] Stop: 08/14/23 12:44 Sodium Chloride (Sodium Chloride 0.65% Na Soln 45 Ml ([place])) 1 - 2 sprays NA PRN PRN PRN Reason: Nasal Dryness/Congestion Stop: 08/12/23 22:35 Mental Health & Subst Abuse Tx Psychiatrist Name of Psychiatrist: Jason Darling Psychiatrist's Date Of Appointment With Psychiatric Provider: 07/26/23 Time of Appointment with Psychiatrist: 9:30 AM arrival time Psychiatric Appointment Comment: [address], [place] [address] Therapist Name of Therapist: Murali Krishnan - [place] Therapist's Date of Therapist Appointment: 07/25/23 Time of Therapist Appointment: 2:00 PM Therapy Appointment Comment: [address], [place] [address] Net Sql Developer Name of Net Sql Developer: None Post Discharge Appointments Primary Care Physician Name Of Family Doctor/PCP: Dr. [facility] Date of Future Appointment with PCP: 07/24/2023 Time of Appointment with PCP: 2:05 PM arrival time Provider Appointment Comment: [address], [place] [id number]
[2023-07-15] MEDS: PANTOprazole 40 MG TAB PO SCH ×2 (13:07→20:46)
[2023-07-15] MEDS: ACETAMINOPHEN 325 MG TAB PO PRN (17:12)
[2023-07-16] MEDS: ARIPiprazole 10 MG TAB PO SCH (08:57)
[2023-07-16] MEDS: PANTOprazole 40 MG TAB PO SCH ×2 (08:57→19:52)
[2023-07-16] MEDS: NICOTINE 14 MG/24 HR PATCH TD SCH (09:03)
--- NOTE | 2023-07-16 12:06 | Psychiatric Progress Note ---
Date of Service July 16, 2023 Impression / Recommendations Impression 22 y/o M with a history of depression who has been increasingly preoccupied with concerns that he has some somatic or psychiatric problem about which he's read on the internet. Symptoms during his previous admission had been attributed largely to his heavy use of cannabinoids, patient now admits to heavy use of synthetic delta-9 and CBD preps prior to admission. Unclear initially how much of presentation is related to OCD vs. somatic delusion and given absence of other evidence of evolving psychosis, a health related anxiety disorder seems more likely. He remains unwilling to sign a 201 commitment and a family meeting is necessary to plan for discharge. They currently do not feel he is baseline and are in not in support of discharge. Staff to educate re: inpatient and 302 criteria. Overall, I spent a total of 40 minutes with this case, including review of chart, direct evaluation of the patient, counseling the patient, ordering medication, coordination with nursing. (1) Unspecified psychosis not due to a substance or known physiological condition: Plan 08/16/23: continue current meds and tx plan. Family meeting. 08/15/23: given length of stay, late to add synthetic screens plus patient has already admitted to extensive use of oils and tinctures. Reviewed metabolic labs and indication for Abilify for ongoing mood/obsessive and psychotic symptoms. Patient willing to increase Abilify as unlikely to remain hospitalized past involuntary hold. Will increase to 10 mg total daily dose of Abilify starting today as no side effect. Re: GI complaints, pantoprazole helpful last admit but patient stopped following stay. Will offer low dose Mag citrate as patient unwilling to retry Miralax/other measures. 07/14/23: The patient was admitted to the [facility] ([facility] mental health unit) on q15 minute checks (behavioral with suicide precautions) for safety.The patient will participate in group, recreational, and milieu therapies and will be offered additional individual and family sessions as clinically appropriate. * start aripiprazole 5 mg daily * in addition to the screening labs ordered in the ED, will order vitamin B12 level, folic acid level, 25-OH vitamin D level, ESR to rule out conditions more pertinent to assessment of psychiatric symptoms * fasting lipid panel and glucose Inventory Assets Strengths: has local supports, voluntarily sought treatment, employed Needs: safety and stabilization, medication adjustment, additional coping skills, increased outpatient services Suicide Risk Level Suicide Risk Level: Moderate (q15 min suicide checks) (denies suicidal thoughts but has made suicidal statements when frustrated) Risk Factors Assessment Male: Yes : Yes Do You Have Access To A Gun?: Yes (Father has guns in home, secured from pt) Health Problems: No (but is convinced he some unknown serious condition) Mental Health Diagnoses: No Substance Use Disorders: Yes Previous Attempt: No Previous Psychiatric Hospitalization: Yes Hopelessness: No Protective Factors Assessment : No Responsible for Young Children: No Employed: Yes ([employer]) Supportive Family: Yes Interval History Identifying Information CONCHA GOMEZ is a 22-year-old M who currently lives in [place] with his parents, has a history of anxiety, and was admitted on 07/13/23 22:03 on a 302 involuntary commitment for suicidal statements. Chief Complaint "I'm the same, nothing helping." Review of Systems Sleep Information Total Hours of Sleep: 7 Meal Information Percent Meal Consumed - Breakfast: 90 Percent Meal Consumed - Lunch: 100 Percent Meal Consumed - Dinner: 100 Subjective Subjective Patient was seen & assessed and interval progress reviewed with nursing and social work. The patient remains hyperfocussed on his perceived cognitive difficulties but he attends groups, readily responds appropriately to questions and is otherwise not exhibiting signs of thought disorganization. As compared to last stay he is less depressed and anxious. He was briefly focussed on his labs but readily redirectible. Discussed his need to continue medication and avoid synthetics to reestablish a baseline and that any imaging (if indicated per neuro) or psychological testing of his memory and processing speed would need to be pursued on an outpatient basis. He did have a large BM last pm and denies N with GI regimen initiated yesterday. Tolerating Abilify increase. Physical Exam Psychiatric Orientation: alert, oriented to person, oriented to place, oriented to time and cooperative Apperance: appropriately dressed, appropriately groomed and appeared stated age Eye Contact: + fair eye contact Motor Behavior: no abnormal motor movements Speech: normal rate/rhythm/volume of speech Affect: + constricted affect Mood: no anxious mood Thought Process: + circumstantial thought process and + concrete thought process Thought Content: + preoccupation and + obsessions (somatic preoccupation) Suicidal Thoughts: denies suicidal thoughts, denies suicidal plan and denies suicidal intent Homicidal Thoughts: denies homicidal thoughts Hallucinations: no auditory hallucinations and no visual hallucinations Cognition: recent memory grossly intact, remote memory grossly intact, attention grossly intact and language grossly intact Estimated Intelligence: consistent with education level Insight: + limited insight Judgment: + limited judgement Vital Signs (Past 24 Hours) Last Vital Signs Temp 36.8 C 07/16/23 06:16 Pulse 88 07/16/23 06:17 Resp 16 07/16/23 06:16 BP 134/71 07/16/23 06:17 Pulse Ox 98 07/16/23 06:16 O2 Del Method Room Air 07/16/23 06:16 Results & Data ([facility]) Current Inpatient Medications Current Inpatient Medications: Current Inpatient Medications Acetaminophen (Acetaminophen 325 Mg Tab) 650 mg PO Q4H PRN PRN Reason: Headache or Minor Fever Stop: 08/12/23 22:35 Last Admin: 07/15/23 17:12 Dose: 650 mg Al Hydrox/Mg Hydrox/Simethicone (Aluminum/Magnesium Susp 30 Ml Udc) 30 ml PO Q4H PRN PRN Reason: GI Upset Stop: 08/12/23 22:35 Aripiprazole (Aripiprazole 10 Mg Tab) 10 mg PO QAM BUDDY Stop: 08/15/23 08:59 Last Admin: 07/16/23 08:57 Dose: 10 mg Benztropine Mesylate (Benztropine Mesylate 1 Mg Tab) 1 mg PO Q6 PRN PRN Reason: Muscle Spasm Stop: 08/14/23 12:38 Bismuth Subsalicylate (Bismuth Subsalicylate Liqd 236 Ml) 15 ml PO PRN PRN PRN Reason: Loose Stool Stop: 08/12/23 22:35 Hydroxyzine HCl (Hydroxyzine Hcl 25 Mg Tab) 50 mg PO HSZ PRN PRN Reason: Insomnia Stop: 08/12/23 22:35 Last Admin: 07/13/23 22:52 Dose: 50 mg Hydroxyzine HCl (Hydroxyzine Hcl 25 Mg Tab) 25 mg PO Q4H PRN PRN Reason: Anxiety Stop: 08/12/23 22:35 Magnesium Hydroxide (Magnesium Hydroxide Susp 30 Ml Udc) 30 ml PO DAILY PRN PRN Reason: Constipation Stop: 08/12/23 22:35 Miscellaneous (Remove Nicoderm Patch) 1 each N/A DAILY@0859 [facility] Stop: 08/13/23 08:58 Last Admin: 07/16/23 09:03 Dose: 1 each Nicotine (Nicotine 14 Mg/24 Hr Patch) 14 mg TD QAM [facility] Stop: 08/13/23 08:59 Last Admin: 07/16/23 09:03 Dose: 14 mg Nicotine Polacrilex (Nicotine Polacrilex 2 Mg Gum) 2 piece MT PRN PRN PRN Reason: Nicotine Withdrawal Symptoms Stop: 08/12/23 22:35 Pantoprazole Sodium (Pantoprazole 40 Mg Tab) 40 mg PO BID [facility] Stop: 08/14/23 12:44 Last Admin: 07/16/23 08:57 Dose: 40 mg Sodium Chloride (Sodium Chloride 0.65% Na Soln 45 Ml ([place])) 1 - 2 sprays NA PRN PRN PRN Reason: Nasal Dryness/Congestion Stop: 08/12/23 22:35 Mental Health & Subst Abuse Tx Psychiatrist Name of Psychiatrist: Jason Darling Psychiatrist's Date Of Appointment With Psychiatric Provider: 07/26/23 Time of Appointment with Psychiatrist: 9:30 AM arrival time Psychiatric Appointment Comment: [address], [place] [address] Therapist Name of Therapist: Murali Krishnan - [place] Therapist's Date of Therapist Appointment: 07/25/23 Time of Therapist Appointment: 2:00 PM Therapy Appointment Comment: [address], [place] [address] Lieutenant Ballistics Name of Lieutenant Ballistics: None Post Discharge Appointments Primary Care Physician Name Of Family Doctor/PCP: Dr. [facility] Date of Future Appointment with PCP: 07/24/2023 Time of Appointment with PCP: 2:05 PM arrival time Provider Appointment Comment: [address], [place] [id number]
[2023-07-16] MEDS: ACETAMINOPHEN 325 MG TAB PO PRN (19:52)
[2023-07-17] MEDS: NICOTINE 14 MG/24 HR PATCH TD SCH (08:28)
[2023-07-17] MEDS: PANTOprazole 40 MG TAB PO SCH (08:28)
[2023-07-17] MEDS: ARIPiprazole 10 MG TAB PO SCH (08:28)
--- NOTE | 2023-07-17 12:26 | Discharge Summary ---
Date of Service July 17, 2023 History of Present Illness As per Dr. Schofield on admission: As part of a thorough review of the available medical records, I have read and and incorporated into my assessment the following note by the ED physician: "Patient is a 22-year-old male who presents to the ER as he is having trouble focusing. He has thoughts racing through his head at night and he is having trouble sleeping. He denies any suicidal homicidal ideations. No auditory or visual hallucinations. He notes he is not really eating or drinking. He has been going to work. Generally goes to bed around 12 AM and wakes up around 4 AM as he works for [employer]. No drugs other than marijuana. He notes he was admitted here recently and this did not help. He does follow with a therapist who referred him in. Additional history obtained from mom and dad who are present at bedside that notes that about 1 and 5 days he is himself. Otherwise he has mood swings and is very agitated. Normal he notes that he has been asking for a gun so he can kill himself." the following note by the ED psychiatric mental health case manager: "Met with Kenny bedside to complete mental health evaluation. Adoptive parents remained in room with Kenny's verbal consent. Kenny stated he came to the ED "because thoughts in my head are mentally driving me crazy." Kenny stated he is having difficulty with his memory and has decreased ability to concentrate/focus on things. He stated "its worse when it's dark outside." Kenny stated he is perseverating on thought and "searching for reason" for his symptoms. Kenny stated he is spending a great deal of time googling his symptoms. Parents feel Kenny has extreme paranoia regarding his physical and mental health. Kenny is diagnosed with depression and anxiety. Kenny stated she was prescribed Sertraline but stopped taking it "cold turkey" approx. 2 weeks ago because he thought it was interacting with the THC he was using. Kenny stated he has been using "90+ percent concentrated THC" for a long time and never had any adverse affects. Kenny stated he started having cyclic vomiting and attributed it to the Sertraline. Kenny stated he continued to feel worse after stopping the sertraline and quit using THC approx. 1-2 weeks ago. Kenny stated he has thoughts of suicide "when I'm going really crazy." He stated "I don't want to live" feeling like this. Mother stated Kenny will ask them to give him a gun so he can shoot himself. Kenny confirmed that he frequently makes statements of wanting to kill himself with a gun. Kenny stated "it gets to the point with my thoughts that I just want it to end." Kenny stated he has no interest in things he used to enjoy. He stated "they are impossible to do. I can't focus on anything and chronically fatigued." Kenny stated he can't sleep and has not been eating much. He denies HI or aggression. Parents stated he is increasingly irrational and irritable "which scares us." He denies hallucinations. He admits to paranoia regarding his physical/mental health. Mother stated he may be somewhat delusional regarding the cause of how he is feeling. Kenny works at [employer] and is suspended from work due to frequent tardiness. Kenny stated he cannot focus or concentrate at work which causes great difficulty doing his job. He stated "I start work in the dark which doesn't help." Kenny lives with his adoptive parent. He denies trauma or abuse history. However, mother stated Kenny is adopted from the [place] and was in an orphanage there from age [age]. Adoptive mother stated it was reported that mother has mental health issues. Father when Kenny was very young. Kenny denies any other substance other than THC. He stated he consumes occasional alcohol. He sees a therapist at [place]. He has an upcoming appointment with his PCP/Dr. Hill on 07/24 for possible medication. Kenny stated he "can't wait until then." Mother stated Kenny has no friends and has difficulty with social interactions. He is withdrawn and isolative. Mother stated Kenny has no access to firearms at home. Discussed recommendation for inpatient treatment with Kenny. He is not agreeable with recommendation for inpatient. Kenny stated he came to the ED to "get an antipsychotic or something." Explained ED physicians do not prescribe anti- psychotic medication due to need to be closely followed by provider. Kenny stated "then I would rather go home and be crazy there." Explained concern for safety due to SI and reiterated recommendation for inpatient treatment. Discussed 201 vs 302. Explained if he was not willing to voluntarily consent to inpatient treatment then a petition would be completed and involuntary commitment process initiated. Kenny stated "I'm not staying in the hospital." Spoke with Dr. Kitchen and updated on findings. Dr. Kitchen agreeable with recommendation for inpatient and agreeable with 302. Petitioning statement completed by this mental health case manager. Mental health delegate contacted/Melany and warrant approved. [address] Kitchen. Kenny was updated on involuntary commitment status and advised of next steps with mental health delegate arrives. " and the following note by the psychiatric liaison nurse: "Pt transported to the ER by his adoptive father for c/o racing thoughts; alexandre. at night, trouble sleeping and not eating or drinking for a "few weeks". Pt denies SI, HI or any hallucinations or delusions. Genna Mcgarry, ER CM, reported that Pt stated to her, "Just give me a antipsychotic and send me home". Pt's father also reported that Pt denies SI, but is constantly asking for a gun. A 302 commitment was initiated and Pt was evaluated by Melany rivas. Pt reported to this nurse that he just wants the crazy thoughts to stop". Pt recently was inpt at [facility] on 04/24 and states, I didn't get anything out of it". Pt also reported that he stopped that Buspar that was prescribed for him after it ran out and didn't help, because it didn't help. Pt also reports past use of Zoloft and and it made the thoughts worse. Pt did ask to be given Lexapro and was informed to speak to the doctor tomorrow regarding medications. Pt does report that he is able to go to work (works at [employer]), but his "crazy thoughts" are worse after the sun goes down. Pt reports daily THC use, but stopped a "few weeks ago" because it caused his racing thoughts to get worse, alexandre. at night. Pt denies any other drug use with rare ETOH use. Pt signed MEGHANA's for his PCP, Dr. Hill, [facility] and his mother, Elizabeth Luna." Review of the medical record reflects that he was admitted to the [facility] here April 2023 with suicidal thoughts that he attributed to vomiting. He was identified as having cannabis hyperemesis syndrome due to his substantial cannabis use. Pt was in the ED here 06/28 complaining of "brain fog" and requesting testing for heavy metal poisoning, on 06/04 to make sure he didn't have serotonin syndrome because he'd stopped sertraline 3 months previously. [facility] April [facility] with diagnoses of depression. Review of pertinent labs reveals they are noncontributory. A urine toxicology screen was negative for all tested substrates, including metabolites of cannabis. BAL was <10 mg/dL. Pt reports "psychosis", by which he means "inability to think". He feels as if his mind is fragmenting. He can't make decisions, is unable to concentrate, has "no short-term memory". He's preoccupied with all sorts of hypotheses to explain this, from heavy metal poisoning (had heavy metals screen but notes they didn't check for all metals), "some sort of toxin" (and asks for "the full panel" to test for every toxin), permanent brain damage from cannabininoid use, "serotonin syndrome" or some lasting brain damage from having used sertraline or having stopped it 3 months ago, etc., all of which involve impaired brain function due to some external substance. He currently is convinced he has delirium based on his internet searches, saying that he "can function during the day" but that "as soon as the sun goes down" loses the ability to think much at all. Pt would like "all the possible tests" to figure this out. He's had a head CT, lots of labs including heavy metals but would happily submit to more. He's not very convinced at all by my saying that there is a known psychiatric condition that involves cognitive impairment, difficulty focusing, and fragmented thinking, the risk of which peaks around his age and of which there's a higher risk in those who used cannabinoids during adolescence. He's pleasant and cooperative but very distracted with markedly impaired concentration and poor recall of earlier aspects of the interaction. Physical Exam Psychiatric See admission H&P and DOD assessment. Vital Signs (Past 24 Hours) Last Vital Signs Temp 35.9 C L 07/17/23 06:00 Pulse 67 07/17/23 06:07 Resp 16 07/17/23 06:00 BP 113/78 07/17/23 06:07 Pulse Ox 98 07/16/23 06:16 O2 Del Method Room Air 07/16/23 06:16 Principal Diagnosis Illness anxiety disorder Psychiatric Data See daily stay summary. In short, safety was maintained and the patient was annoyed by his 302 status but overall much more cooperative with care than last stay and attended groups. Medication changes included a trial of Abilify initiated by Dr. Schofield for his obsessions/possible somatic delusions, allbeit with the belief that he was not abusing MJ this stay given negative THC on admission tox screen. Kenny tolerated this well and wanted to increase dose to 10 mg to further the trial. He became less focussed on having a metal toxicity causing his cognitive complaints and extensive time was taken to review his labs and redirect his belief he needed urgent MRI. He voiced understanding that formal psychological testing or neuro referral would need to be initiated on an outpatient basis and that no referrals were initiated during his stay as there is a need for him to abstain from synthetic cannabinoids for a period of time. He was much more redirectible around his medical concerns after stating proton pump inhibitor and a 1 time dose of mag citrate for rx of constipation, in short he felt his GI system was now working normally. The patient did not exhibit any thought disorganization, hallucinations, delay in response in groups, etc that would indicate a formal thought disorder and any psychosis, if was present on admission was most likely related to extensive use of multiple delta 9 synthetic products and/or resolved within 1 dose of Abilify which would also argue against a psychotic disorder. During both hospitalitations he remained focussed on his health so in addition to substance induce mood issues seems to meet criteria for illness anxiety disorder. A family session was held with his father and safety plan was completed prior to discharge. He no longer met criteria for involuntary commitment and was continuing to request discharge. He was more amenable to continue meds and have outpatient follow up than last stay. Re-reviewed that Abilify should not be stopped abruptly and requires longer term monitoring (metabolic, TD). Reviewed his fasting labs and there are no abnormal motor movements at baseline. Day of Discharge Assessment Today the patient voices readiness for discharge. They note improvement in mood and deny thoughts to harm self or others. Thoughts remain organized and they are improved from admission. There is no evidence of psychosis. They agree to take mediations as prescribed and keep follow-up appointments. They are stable for discharge to outpatient level of care. Transition of Care Transition Of Care Record: was reviewed with the patient Advance Directives Advance Directives Information Provided: Yes Mental Health Advance Directive: No Advance Directives on File: No Living Will: No Power of Bullet Maker: No Advance Directives Reason:: Declines as Mental Health Visit. Suicide Risk Level Suicide Risk Level Comments: Suicide risk at discharge is deemed low as the patient is no longer requiring 24-hr monitoring, has a safety plan, and is free of suicidal ideation at discharge. Risk Factors Assessment Male: Yes : Yes Do You Have Access To A Gun?: No (Father has guns in home, secured from pt) Health Problems: No (but is convinced he some unknown serious condition) Mental Health Diagnoses: No Substance Use Disorders: Yes Previous Attempt: No Previous Psychiatric Hospitalization: Yes Hopelessness: No Protective Factors Assessment : No Responsible for Young Children: No Employed: Yes ([employer]) Supportive Family: Yes Tobacco Cessation at Discharge Tobacco Cessation Medication Prescribed at Discharge: Offered & Pt Refused Total Time Total Time Spent: Greater Than 30 Minutes (35 minutes) Total Time Includes: Examination of the patient, Discharge Planning and Medication Reconciliation Discharge Data Lab Results 07/13/23 07/13/23 07/14/23 17:35 18:27 15:19 WBC 7.21 RBC 5.25 Hgb 15.7 Hct 44.5 MCV 84.8 MCH 29.9 MCHC 35.3 RDW Std Deviation 37.2 RDW Coeff of Silva 12.2 Plt Count 220 MPV 9.5 Immature Gran % (Auto) 0.0 Neut % (Auto) 47.9 Lymph % (Auto) 39.7 [place] % (Auto) 9.2 Eos % (Auto) 2.6 Baso % (Auto) 0.6 Neut # (Auto) 3.46 Lymph # (Auto) 2.86 [place] # (Auto) 0.66 H Eos # (Auto) 0.19 Baso # (Auto) 0.04 Immature Gran # (Auto) 0.00 L ESR 3 Sodium 140 Potassium 4.2 Chloride 105 Carbon Dioxide 29 Anion Gap 6 BUN 10 Creatinine 0.66 Est Cr Clr Drug Dosing 176.5 Est GFR ( Amer) > 150.0 Est GFR (Non-Af Amer) 139.2 BUN/Creatinine Ratio 15.2 Glucose 95 Fasting Glucose Calcium 10.3 Total Bilirubin 0.7 AST 15 ALT 12 Alkaline Phosphatase 55 Total Protein 7.6 Albumin 5.1 H Globulin 2.5 Albumin/Globulin Ratio 2.0 Triglycerides Cholesterol LDL Cholesterol, Calc VLDL Cholesterol, Calc HDL Cholesterol Cholesterol/HDL Ratio Vitamin B12 640 25-OH Vitamin D Total 27.4 Folate 19.77 TSH 1.290 Urine Color Yellow Urine Appearance Clear Urine pH 7.5 Ur Specific Norris 1.014 Urine Protein Negative Urine Glucose (UA) Negative Urine Ketones Negative Urine Blood Negative Urine Nitrite Negative Urine Bilirubin Negative Urine Urobilinogen Negative Ur Leukocyte Esterase Negative Salicylates < 3.0 L Urine Opiates Screen Neg Ur Methadone, Qual Neg Acetaminophen < 3 L Urine Barbiturates Neg Ur Phencyclidine (PCP) Neg U Amphetamin/Meth Scrn Neg MDMA (Ecstasy) Screen Neg U Benzodiazepines Scrn Neg Ur Cocaine Metabolite Neg U Marijuana (THC) Screen Neg Ethyl Alcohol mg/dL < 10.0 SARS-CoV-2, RNA, NAAT NEGATIVE 07/15/23 07:06 WBC RBC Hgb Hct MCV MCH MCHC RDW Std Deviation RDW Coeff of Silva Plt Count MPV Immature Gran % (Auto) Neut % (Auto) Lymph % (Auto) [place] % (Auto) Eos % (Auto) Baso % (Auto) Neut # (Auto) Lymph # (Auto) [place] # (Auto) Eos # (Auto) Baso # (Auto) Immature Gran # (Auto) ESR Sodium Potassium Chloride Carbon Dioxide Anion Gap BUN Creatinine Est Cr Clr Drug Dosing Est GFR ( Amer) Est GFR (Non-Af Amer) BUN/Creatinine Ratio Glucose Fasting Glucose 98 Calcium Total Bilirubin AST ALT Alkaline Phosphatase Total Protein Albumin Globulin Albumin/Globulin Ratio Triglycerides 70 Cholesterol 128 LDL Cholesterol, Calc 66 VLDL Cholesterol, Calc 14 HDL Cholesterol 48 Cholesterol/HDL Ratio 2.7 Vitamin B12 25-OH Vitamin D Total Folate TSH Urine Color Urine Appearance Urine pH Ur Specific Norris Urine Protein Urine Glucose (UA) Urine Ketones Urine Blood Urine Nitrite Urine Bilirubin Urine Urobilinogen Ur Leukocyte Esterase Salicylates Urine Opiates Screen Ur Methadone, Qual Acetaminophen Urine Barbiturates Ur Phencyclidine (PCP) U Amphetamin/Meth Scrn MDMA (Ecstasy) Screen U Benzodiazepines Scrn Ur Cocaine Metabolite U Marijuana (THC) Screen Ethyl Alcohol mg/dL SARS-CoV-2, RNA, NAAT Hospital Course (1) Unspecified psychosis not due to a substance or known physiological condition: note this diagnosis remains accurate based on initial presentation yet course more consistent to 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 dx updated at discharge. Plan 08/16/23: continue current meds and tx plan. Family meeting. 08/15/23: given length of stay, late to add synthetic screens plus patient has already admitted to extensive use of oils and tinctures. Reviewed metabolic labs and indication for Abilify for ongoing mood/obsessive and psychotic symptoms. Patient willing to increase Abilify as unlikely to remain hospitalized past involuntary hold. Will increase to 10 mg total daily dose of Abilify starting today as no side effect. Re: GI complaints, pantoprazole helpful last admit but patient stopped following stay. Will offer low dose Mag citrate as patient unwilling to retry Miralax/other measures. 07/14/23: The patient was admitted to the [facility] on q15 minute checks (behavioral with suicide precautions) for safety.The patient will participate in group, recreational, and milieu therapies and will be offered additional individual and family sessions as clinically appropriate. * start aripiprazole 5 mg daily * in addition to the screening labs ordered in the ED, will order vitamin B12 level, folic acid level, 25-OH vitamin D level, ESR to rule out conditions more pertinent to assessment of psychiatric symptoms * fasting lipid panel and glucose Mental Health & Subst Abuse Tx Psychiatrist Name of Psychiatrist: Jason Darling Psychiatrist's Date Of Appointment With Psychiatric Provider: 07/26/23 Time of Appointment with Psychiatrist: 9:30 AM arrival time Psychiatric Appointment Comment: [address], [place] [address] Therapist Name of Therapist: [facility] Therapist's Date of Therapist Appointment: 07/25/23 Time of Therapist Appointment: 2:00 PM Therapy Appointment Comment: [address], [place] [address] Fish Tender Name of Fish Tender: None Post Discharge Appointments Primary Care Physician Name Of Family Doctor/PCP: Dr. Hill Primary Care Date of Future Appointment with PCP: 07/24/2023 Time of Appointment with PCP: 2:05 PM arrival time Provider Appointment Comment: [address] [place] [address] Smoking Cessation Counseling Tobacco Cessation Medication Prescribed at Discharge: Offered & Pt Refused Discharge Plan Discharge Items Patient Disposition: Home - Self-Care Reason For Visit: MDD Discharge Diagnosis: anxiety disorder Activity: Resume your previous activity Lifting: Gradually increase as tolerated Non-emergency contact: Primary Care Provider, Psychiatrist and Therapist Call non-emergency contact if: you have any medication questions and your symptoms worsen Follow-up/Referrals: Rad Hill MD [Primary Care Provider] - Diet: Regular Addtl Attending Provider Instructions: SPECIAL CARE INSTRUCTIONS: 1. Follow through with your scheduled aftercare appointments. If unable to keep an appointment, please call to reschedule. 2. Take your medication only as prescribed. Medication should not be changed or stopped without the approval of your doctor. In the event of worsening symptoms or concerns about side effects, contact your doctor immediately. 3. Utilize new healthy coping skills, anger management skills, and stress management skills learned during your hospitalization. Journal feelings and process them with a support person. Identify stressors or situations that may result in relapse, deterioration or inappropriate behaviors and develop a plan to deal with those issues. 4. If your coping skills are ineffective and you are in crisis, contact your outpatient providers for direction. If unable to reach your providers, please call the [facility] CRISIS LINE AT , go to the [facility] walk-in center at [address] [place] [address] [facility], or go to the closest Emergency Room. 5. Avoid alcohol and un-prescribed drugs. 6. You have been provided with the Mental Health Advance Directives Pamphlet for your review. 7. Your condition is stable for discharge to outpatient level of care, but recovery is an ongoing process. Ifthoughts to harm yourself or others return, follow the safety plan developed during your stay. Planning for a safe return home includes securing weapons. Our treatment team recommends weaponsbe removed from the home until your outpatient provider reassesses your progress. In rare cases where the items themselvescannot be removed, guns and ammunitionshould be secured separatelyand keys stored by a reliable personoutside of the home. If you were admitted on an involuntary commitment, the police or other legal authorities may be involved in this process. AFTERCARE APPOINTMENTS: * Please call your insurance company prior to your scheduled appointment to confirm your aftercare providers are covered. Take your insurance information to your appointments. WHO TO CALL AND WHEN: Medical Emergencies: For questions or emergencies related to your hospital stay, please contact the Inpatient Behavioral Health Unit at [phone]. A direct chill casting operator is on-call 23/01 for the Behavioral Health Unit for emergencies At any time you feel your situation is an emergency, you may also call 911 immediately. Pending Studies at Discharge: Yes (arsenic, lead, mercury metabolite levels sent out, preliminaries reviewed.) Studies:: f/u with PCP re: your outstanding labs and requests for imaging. Stand-Alone Forms: [facility] Smoking Cessation Medications and DC Order Prescriptions: New pantoprazole 40 mg Tablet,Delayed Release (Dr/Ec) 40 mg PO QAM Qty: 30 0RF aripiprazole [Abilify] 10 mg Tablet 10 mg PO QAM Qty: 30 0RF Discontinued buspirone 5 mg Tablet 5 mg PO BIDM Qty: 60 0RF ondansetron 8 mg Tablet,Disintegrating 8 mg PO BID PRN (Reason: Nausea) Qty: 14 0RF Discharge Orders: Discharge Order (Routine); Ordered 07/17/23 Ordered By: Kati Monahan Admission Data Admit Date/Time: 07/13/23 22:03 Attending Provider: Kati Monahan Admit Provider: Emmanuel Schofield Primary Care Provider: Rad Hill Other Interventions: Discharge Summary Assessment (RN) Last Done: 07/17/23 12:26 PSY Interdisciplinary Discharge Planning Last Done: 07/14/23 14:21 Coding Level of Care Code 54546 D/C day mgmt > 30 min Diagnoses Unspecified psychosis not due to a substance or known physiological condition F29
[2023-07-18 01:57] LABS: Arsenic Blood <3 mcg/L (<23); Lead Blood <1.0 mcg/dL (<3.5); Mercury, blood <4 mcg/L (<=10)
== END 2023-07-17 12:47 | disposition home or self-care (01) | DRG 882 ==
LOC: ED 17:15 → SUATTDRO 22:03 → 3S 22:03 → ED 22:21 → 3S 07-14 18:04

== ENCOUNTER 2023-09-30 12:02 | Inpatient (IN) ==
[2023-09-30 12:45] LABS: Appearance Urine Clear (Clear); Bilirubin Urine Negative (Negative); Blood Urine Negative (Negative); Color Urine Yellow; Glucose Urine UA Negative (Negative); Ketones Urine Negative (Negative); Leukocyte Esterase Urine Negative (Negative); Nitrite Urine Negative (Negative); Protein Urine Negative (Negative); Specific Gravity Urine 1.006 (1.000-1.030); Urobilinogen Urine Negative (Negative)
[2023-09-30 12:58] LABS: Basophils # (auto) 0.04 K/uL (0.00-0.20); Basophils % (auto) 0.5 %; Eosinophils # (auto) 0.09 K/uL (0.00-0.50); Eosinophils % (auto) 1.1 %; Hematocrit (blood only) 47.4 % (42.0-52.0); Immature Granulocytes # (auto) 0.02 K/uL (0.01-0.20); Immature Granulocytes % (auto) 0.2 %; Lymphocytes # (auto) 2.19 K/uL (1.20-3.40); Lymphocytes % (auto) 26.1 %; Mean Corpuscular Hemoglobin 29.3 pg (25.0-34.0); Mean Corpuscular Hgb Conc 33.8 g/dL (32.0-36.0); Mean Corpuscular Volume 86.8 fL (80.0-100.0); Mean Platelet Volume 9.4 fL (9.4-12.4); Monocytes % (auto) 7.2 %; Neutrophils # (auto) 5.44 K/uL (1.40-6.50); Neutrophils % (auto) 64.9 %; Platelet Count 268 K/uL (130-400); Red Blood Count 5.46 M/uL (4.70-6.10); White Blood Count 8.38 K/ul (4.8-10.8)
[2023-09-30 13:01] LABS: Alanine Aminotransferase 16 U/L (7-52); Albumin Globulin Ratio 1.7 (0.9-2); Alkaline Phosphatase 59 U/L (34-104); Anion Gap 9 (3-11); Aspartate Aminotransferase 19 U/L (13-39); BUN Creatinine Ratio 15.8 (10-20); Bilirubin,Total 0.6 mg/dl (0.2-1.0); Blood Urea Nitrogen 12 mg/dl (6-23); Calcium 10.1 mg/dl (8.6-10.3); Carbon Dioxide 26 mmol/L (21-32); Chloride 101 mmol/L (98-107); Creatinine Clr Calc Pharmacy 162.7 ml/min; Est GFR (African American) > 150.0 ml/min; Est GFR (Non-African American) 130.4 ml/min; Glucose 122 mg/dl (70-99(Fasting)); Potassium 4.2 mmol/L (3.5-5.1); Sodium 136 mmol/L (136-145)
--- NOTE | 2023-09-30 13:04 | CT Scan Report ---
HEAD CT NONCONTRAST CT DOSE: 625.8 mGy.cm HISTORY: Altered mental status. TECHNIQUE: Multiaxial CT images of the head were performed without the use of intravenous contrast. A utomated exposure control was utilized for this study. A dose lowering technique was utilized adheri ng to the principles of ALARA. Comparison: Head CT 08/07/2023. Findings: The paranasal sinuses and mastoid air cells are clear. The calvarium and skull base are int act. The ventricles and sulci are within normal limits. There is no mass, hematoma, midline shift, or acute infarct. Impression: No acute intracranial abnormality. ACT 112: Negative or not required by law. Electronically signed by: Jose Ramon Wong M.D. 09/30/2023 1:03 PM
[2023-09-30 13:12] LABS: iSTAT Creatinine 0.7 mg/dl (0.6-1.3); iSTAT Hemoglobin 16.7 g/dl (14.0-18.0); iSTAT Ionized Calcium 1.24 mmol/l (1.12-1.32); iSTAT Potassium 3.8 mmol/L (3.3-5.0)
[2023-09-30 13:13] LABS: Acetaminophen < 3 ug/ml (10-30); Salicylate < 3.0 mg/dl (3.0-30)
[2023-09-30] MEDS: OPTIRAY 320 100ml IV ONE (13:24)
[2023-09-30 13:38] LABS: Lipase 10 U/L (11-82)
--- NOTE | 2023-09-30 13:40 | CT Scan Report ---
ABDOMEN AND PELVIS CT WITH IV CONTRAST CT DOSE: 537.87 mGy.cm HISTORY: Generalized abdominal pain. TECHNIQUE: Multiaxial CT images of the abdomen and pelvis were performed following the use of intrave nous contrast. A dose lowering technique was utilized adhering to the principles of ALARA. COMPARISON STUDY: Abdomen and pelvis CT 07/11/2021. FINDINGS: The lung bases are clear. The liver, spleen, gallbladder, pancreas, kidneys, and adrenal gl ands are within normal limits. No bowel wall thickening or obstruction. The pelvic organs are unremar kable. No suspicious lytic or blastic osseous lesions. Normal appendix. IMPRESSION: No significant abnormality identified within the abdomen or pelvis. ACT 112: Negative or not required by law. Electronically signed by: Jose Ramon Wong M.D. 09/30/2023 1:37 PM
[2023-09-30 13:47] LABS: Amphetamines+Metham, Urine Neg (Neg); Barbiturates, Urine Neg (Neg); Benzodiazepine, Urine Neg (Neg); Cocaine, Urine Neg (Neg); MDMA (Ecstacy), Urine Neg (Neg); Marijuana, Urine Neg (Neg); Methadone, Urine Neg (Neg); Opiate, Urine Neg (Neg); Phencyclidine, Urine Neg (Neg)
--- NOTE | 2023-09-30 14:16 | Emergency Department Note ---
History of Present Illness General Chief complaint: Confusion Stated complaint: CONFUSION Time Seen by Provider: 09/30/23 12:15 Source: patient and family (Parents at bedside) History of Present Illness Provider complaint: Mental health evaluation 23-year-old male presents emergency department for mental health evaluation. Patient states he has a "brain fog". Patient states he thinks he might of ingested something such as mold which is causing his intestines to be inflamed and causing him to have this brain fog. Parents stated that the patient is hyperfocused on his abdominal issues and is leading him to have some mental health disturbances. Father reports that the patient is drinking excessive amounts of water. Patient is making comments that his distress makes him want to shoot himself in the head with a gun. Patient and parents report that the patient has had similar effects when he is used THC in the past but reports that he has not used THC recently. Home Medications Medication Instructions Recorded Confirmed Type escitalopram oxalate 10 mg tablet 10 mg PO DAILY 09/03/23 09/30/23 History olanzapine 10 mg tablet 10 mg PO DAILY 09/27/23 09/30/23 History Allergies Allergy/AdvReac Type Severity Reaction Status Date / Time No Known Allergies Allergy Verified 09/27/23 00:00 Past Med/Surg History Medical History Unspecified psychosis not due to a substance or known physiological condition Depression Acute anxiety Suicidal ideations Cannabis hyperemesis syndrome concurrent with and due to cannabis abuse Major depressive disorder with single episode Recurrent vomiting Suicidal ideations Social History Smoking Status: Current every day smoker Tobacco Type: Cigarettes Preferred Language: [place]i Communication Ability: Effective [place] [employer] Required: No Beliefs That Will Affect Care: None Feels Safe at Home: Yes Gender Identity: Male Assistive Devices: None Physical Exam Vital Signs Vital Signs - 24 hr 09/30/23 12:05 09/30/23 12:32 09/30/23 12:51 Temperature 36.4 C L 37.3 C Temperature Source Temporal Artery Scan Oral Pulse Rate 105 H Pulse Rate [Finger] 90 Respiratory Rate 20 18 Respiratory Effort / Characteristics Non-Labored Spontaneous Respiratory Depth Normal Respiratory Pattern Regular Blood Pressure 165/89 H Blood Pressure [Right Arm] 135/79 Blood Pressure Mean 114 Blood Pressure Mean [Right Arm] 97 Blood Pressure Position [Right Arm] Sitting Pulse Oximetry 100 100 100 Oxygen Delivery Method Room Air Room Air Sepsis Recent Fever Within 48 Hours No Sepsis New/Unexplained Change in Mental Status N/A Sepsis Action Taken by Nursing No Action Required 09/30/23 14:46 Temperature Temperature Source Pulse Rate Pulse Rate [Finger] 91 H Respiratory Rate 18 Respiratory Effort / Characteristics Non-Labored Spontaneous Respiratory Depth Normal Respiratory Pattern Regular Blood Pressure Blood Pressure [Right Arm] 123/81 Blood Pressure Mean Blood Pressure Mean [Right Arm] 95 Blood Pressure Position [Right Arm] Lying Pulse Oximetry 99 Oxygen Delivery Method Room Air Sepsis Recent Fever Within 48 Hours Sepsis New/Unexplained Change in Mental Status Sepsis Action Taken by Nursing Physical Exam GENERAL: She is oriented to person, place, and time. She appears well-developed and well-nourished. She does not appear distressed. HENT: Exam performed. -Head: Normocephalic and atraumatic. -Right Ear: External ear normal. No mastoid erythema -Left Ear: External ear normal. No mastoid erythema -Mouth/Throat: The oropharynx is clear and moist. No trismus in the jaw. No dental abscesses or uvula swelling. No oropharyngeal exudate or tonsillar abscesses. EYES: Conjunctivae and EOM are normal.Right eye exhibits no discharge. Left eye exhibits no discharge. No scleral icterus. NECK: Normal range of motion. Neck supple. No JVD present. No tracheal deviation and normal range of motion present. CV: Normal rate, regular rhythm, normal heart sounds and intact distal pulses. There is no peripheral edema. Palpable radial pulses bue. PULM/CHEST: Effort normal and breath sounds normal. No respiratory distress. No stridor. She has no wheezes. She has no rales. -Chest Wall: She exhibits no tenderness. ABD: The abdomen is soft. Bowel sounds are normal. She has no distension. No mass is present. There is no tenderness. There is no rebound, no guarding, no Guzman's sign and no tenderness at McBurney's point. Rovsig negative MUSC/SKEL: Normal range of motion. There is no peripheral edema, tenderness or deformity. NEURO: Motor and sensation grossly intact. SKIN: Skin is warm and dry. She is not diaphoretic. PSYCH: Bizarre affect suicidal ideation. Course Course 1215: The patient was evaluated in room A7. A complete history and physical exam was performed 1345: Patient medically cleared. Awaiting psychiatric evaluation and placement. Patient placed in observation at this time. 1543: Case signed out to Dr. Felton. Awaiting inpatient psychiatric placement. Administered Medications Discontinued Medications Ioversol (Optiray 320 100ml) 94 ml IV ONCE ONE Stop: 09/30/23 13:24 Last Admin: 09/30/23 13:24 Dose: 94 ml Documented By: FRANCA Medical Decision Making Laboratory Data Attestation: I reviewed the patient's lab results. 09/30/23 12:29 09/30/23 12:29 Lab Results 09/30/23 09/30/23 Range/Units 12:29 13:00 WBC 8.38 (4.8-10.8) K/ul RBC 5.46 (4.70-6.10) M/uL Hgb 16.0 (14.0-18.0) g/dl POC Hgb 16.7 (14.0-18.0) g/dl Hct 47.4 (42.0-52.0) % POC Hct 49 (42-52) % MCV 86.8 (80.0-100.0) fL MCH 29.3 (25.0-34.0) pg MCHC 33.8 (32.0-36.0) g/dL RDW Std Deviation 41.0 (36.4-46.3) fL RDW Coeff of Silva 13.0 (11.5-14.5) % Plt Count 268 (130-400) K/uL MPV 9.4 (9.4-12.4) fL Immature Gran % (Auto) 0.2 % Neut % (Auto) 64.9 % Lymph % (Auto) 26.1 % Ellis % (Auto) 7.2 % Eos % (Auto) 1.1 % Baso % (Auto) 0.5 % Neut # (Auto) 5.44 (1.40-6.50) K/uL Lymph # (Auto) 2.19 (1.20-3.40) K/uL Ellis # (Auto) 0.60 H (0.11-0.59) K/uL Eos # (Auto) 0.09 (0.00-0.50) K/uL Baso # (Auto) 0.04 (0.00-0.20) K/uL Immature Gran # (Auto) 0.02 (0.01-0.20) K/uL POC Sodium 140 (135-144) mmol/L Sodium 136 (136-145) mmol/L POC Potassium 3.8 (3.3-5.0) mmol/L Potassium 4.2 (3.5-5.1) mmol/L POC Chloride 102 (101-112) mmol/L Chloride 101 (98-107) mmol/L Carbon Dioxide 26 (21-32) mmol/L POC Total CO2 25 (24-31) mmol/L Anion Gap 9 (3-11) POC Anion Gap 18.0 (16-25) mmol/L POC BUN 12 (7-18) mg/dl BUN 12 (6-23) mg/dl Creatinine 0.76 (0.6-1.4) mg/dl POC Creatinine 0.7 (0.6-1.3) mg/dl Est Cr Clr Drug Dosing 162.7 ml/min Est GFR ( Amer) > 150.0 ml/min Est GFR (Non-Af Amer) 130.4 ml/min BUN/Creatinine Ratio 15.8 (10-20) Glucose 122 H (70-99(Fasting)) mg/dl POC Glucose (other) 111 H (70-99) mg/dl Calcium 10.1 (8.6-10.3) mg/dl POC Ioniz Calcium Robert 1.24 (1.12-1.32) mmol/l Total Bilirubin 0.6 (0.2-1.0) mg/dl AST 19 (13-39) U/L ALT 16 (7-52) U/L Alkaline Phosphatase 59 (34-104) U/L Total Protein 8.0 (6.0-8.3) gm/dl Albumin 5.0 (3.4-5.0) gm/dl Globulin 3.0 (2.5-4.0) gm/dl Albumin/Globulin Ratio 1.7 (0.9-2) Lipase 10 L (11-82) U/L TSH 0.580 (0.300-4.500) uIu/ml Urine Color Yellow Urine Appearance Clear (Clear) Urine pH 6.0 (4.5-7.5) Ur Specific [place] 1.006 (1.000-1.030) Urine Protein Negative (Negative) Urine Glucose (UA) Negative (Negative) Urine Ketones Negative (Negative) Urine Blood Negative (Negative) Urine Nitrite Negative (Negative) Urine Bilirubin Negative (Negative) Urine Urobilinogen Negative (Negative) Ur Leukocyte Esterase Negative (Negative) Salicylates < 3.0 L (3.0-30) mg/dl Urine Opiates Screen Neg (Neg) Ur Methadone, Qual Neg (Neg) Acetaminophen < 3 L (10-30) ug/ml Urine Barbiturates Neg (Neg) Ur Phencyclidine (PCP) Neg (Neg) U Amphetamin/Meth Scrn Neg (Neg) MDMA (Ecstasy) Screen Neg (Neg) U Benzodiazepines Scrn Neg (Neg) Ur Cocaine Metabolite Neg (Neg) U Marijuana (THC) Screen Neg (Neg) Ethyl Alcohol mg/dL < 10.0 (<10.0) mg/dl SARS-CoV-2, RNA, NAAT NEGATIVE (NEGATIVE) Imaging Data Attestation: I personally reviewed and interpreted this imaging study as follows: My Impression: CT head: No ICH Radiologist's Impression: Head CT 09/30/23 12:[address] DOSE: 625.8 mGy.cm HISTORY: Altered mental status. TECHNIQUE: Multiaxial CT images of the head were performed without the use of intravenous contrast. Automated exposure control was utilized for this study. A dose lowering technique was utilized adhering to the principles of ALARA. Comparison: Head CT 08/07/2023. Findings: The paranasal sinuses and mastoid air cells are clear. The calvarium and skull base are intact. The ventricles and sulci are within normal limits. There is no mass, hematoma, midline shift, or acute infarct. Impression: No acute intracranial abnormality. ACT 112: Negative or not required by law. Electronically signed by: Jose Ramon Wong M.D. 09/30/2023 1:03 PM Abdomen/Pelvis CT 09/30/23 12:[address] WITH IV CONTRAST CT DOSE: 537.87 mGy.cm HISTORY: Generalized abdominal pain. TECHNIQUE: Multiaxial CT images of the abdomen and pelvis were performed following the use of intravenous contrast. A dose lowering technique was utilized adhering to the principles of ALARA. COMPARISON STUDY: Abdomen and pelvis CT 07/11/2021. FINDINGS: The lung bases are clear. The liver, spleen, gallbladder, pancreas, kidneys, and adrenal glands are within normal limits. No bowel wall thickening or obstruction. The pelvic organs are unremarkable. No suspicious lytic or blastic osseous lesions. Normal appendix. IMPRESSION: No significant abnormality identified within the abdomen or pelvis. ACT 112: Negative or not required by law. Electronically signed by: Jose Ramon Wong M.D. 09/30/2023 1:37 PM ECG Data Attestation: I personally reviewed and interpreted this ECG as follows: Rate (beats per minute): 72 Rhythm: + normal sinus ECG Intervals/blocks: + Normal QRS, + Normal FL and + Normal QT-c ECG ST segments: + Normal ST segments MDM Narrative 1215: The patient was evaluated in room A7. A complete history and physical exam was performed 1345: Patient medically cleared. Awaiting psychiatric evaluation and placement. Patient placed in observation at this time. 1543: Case signed out to Dr. Felton. Awaiting inpatient psychiatric placement. Impression & Plan Suicidal ideations Discharge Plan Visit Data Chief Complaint: Confusion Stated Complaint: CONFUSION ED Provider: Guerrero Felton Discharge Problem: Suicidal ideations Patient Disposition: Still a Patient Forms Stand Alone Forms: My [facility] [employer] Prescriptions Prescriptions: No Action escitalopram oxalate 10 mg tablet 10 mg PO DAILY olanzapine 10 mg tablet 10 mg PO DAILY Referrals Referrals: Rad Hill MD [Primary Care Provider] -
--- NOTE | 2023-09-30 15:40 | Emergency Department Note ---
ED Visit Note I received signout from Dr. Ponce. The patient is currently a voluntary 201 pending placement. The patient had suicidal ideation with plan to shoot himself. Patient was medically cleared. Patient was accepted to [facility] 201 was signed. Impression: Suicidal ideation with plan, depression .
[2023-09-30] MEDS ORDERED: NICOTINE POLACRILEX 2 MG GUM MT PRN (19:01)
[2023-09-30] MEDS ORDERED: BISMUTH SUBSALICYLATE LIQD 236 ML PO PRN (19:01)
[2023-09-30] MEDS ORDERED: SODIUM CHLORIDE 0.65% NA SOLN 45 ML (OCEAN) PRN (19:01)
[2023-09-30] MEDS ORDERED: ALUMINUM/MAGNESIUM SUSP 30 ML UDC PO PRN (19:01)
[2023-09-30] MEDS ORDERED: MAGNESIUM HYDROXIDE SUSP 30 ML UDC PO PRN (19:01)
[2023-09-30] MEDS ORDERED: hydrOXYzine HCl 25 MG TAB PO PRN (19:01)
[2023-10-01] MEDS: NICOTINE 14 MG/24 HR PATCH TD SCH (08:56)
--- NOTE | 2023-10-01 12:25 | History & Physical ---
Date of Service October 01, 2023 Impression / Recommendations Impression This is a young man who has a history of pretty bad anxiety and depression. There also was a history of using THC illicitly. I do not doubt that he brought cannabis or some THC type of product off the Internet. However, it does not appear that there is a physical basis to his concerns about his body. He is adopted so we do not know enough about family history to have a good sense of his genetic predispositions. We could look at this is a delusional disorder that is causing depression or we could consider it major depression with psychosis. Regardless, I think we would treat it the same way. (1) Major depressive disorder, recurrent, severe with psychotic symptoms: Plan 1. The patient is admitted here for safety, further evaluation, and treatment. We have him on suicide precautions with every 15 minute observation. Because of his psychomotor agitation, we are going to have him in a room by himself for now. 2. I restarted his Lexapro and olanzapine. He was not taking them reliably and we are going to give them to him here reliably and see if they can offer some support. 3. I encouraged the patient to take part in our therapeutic milieu, attend groups and activities, maintain good hygiene, and try not to isolate. 4. Our medical people are available to evaluate and treat any medical issues that may arise. 5. We will set up a family meeting before discharge to make sure we go over safety, and sure the gun is out of the house or at least locked up, and have a good discharge treatment plan. 6. Disposition will likely be back home with outpatient medication management and counseling. Because of his poor insight about his problems, adherence to treatment may become a problem here or after discharge. Today I spent 90 minutes on the case. This included meeting with the patient, reviewing the chart, nursing report, orders, and documentation. Suicide Risk Level Suicide Risk Level: Moderate (q15 min suicide checks) Protective Factors Assessment Employed: Yes ([employer]) Psychiatric History Identifying Data CONCHA GOMEZ is a 23-year-old adopted male from [place] who presented to the emergency room on September 29 with suicidal ideation. He is convinced that something terrible is happened to his body after he took some black market THC that he bought on the Internet. Chief Complaint "I almost committed suicide." History of Present Illness I have never met Concha before today, but he has been here on our unit in the past. This is his third or fourth time here on our unit he tells me. I also noticed that he had multiple emergency department visits since early August. This would be around the same time that he purchased that [place] market THC. He was hospitalized here in July 2023. He was discharged with a diagnosis of an anxiety disorder, but there were concerns about substance induced psychosis. The patient himself wonders if he may have schizophrenia. Recently he had gotten a hold of a gun to end his life and it somehow went off in the house. Family of course was concerned and brought him to the emergency room to get help and refused to take him home. Patient says that he has had some significant problems over the last 2 months with his THC that he purchased. This includes some pretty severe memory loss, concentration problems, feeling like he cannot think straight, brain fog, poor sleep, and not feeling well. He gets very hopeless about this because he is worried it is a permanent situation. He works for [employer] and has had some difficulty functioning in his job. He is not involved in any other organized activities or pentecostal. He is not in a relationship. He has no big medical issues. He has no legal issues. He has had global insomnia but no nightmares. Appetites been very poor and he has to make himself eat. He describes his mood is "totally depressed." He has anhedonia, poor energy, poor concentration, guilt, hopelessness, and suicidal ideation. He denies any homicidal thoughts. He denies any self-harm. He denies any history of trauma or abuse. He denies any auditory or visual hallucinations. There are no ideas of reference. He smokes cigarettes but has stopped using any type of THC. He says he will drink alcohol maybe once every 2 weeks. He does not use any other substances. There is no history of any candace. Past Psychiatric History Previous Psych History: He has a history of anxiety, depression, and possible substance-induced psychosis. Current Psychiatric Diagnosis: MDD Outpatient Services: He gets outpatient services through [facility]. It sounds like he is not attending his appointments very reliably. He is also not taking his medications very reliably. Previous Psych Admissions: I believe this is his third lifetime psychiatric hospitalization here at [facility]. He says he has never had any other psychiatric hospitalizations. History of Previous Suicide Attempt: Yes Past Medication Trials: He tells me he has been on Abilify, Lexapro, sertraline, olanzapine and possibly others. Past Head Trauma/Neuro History Patient denies any chronic medical issues. No surgical procedures. No medical hospitalizations. No seizures. No head trauma with loss of consciousness. Allergies Allergy/AdvReac Type Severity Reaction Status Date / Time No Known Allergies Allergy Verified 09/27/23 00:00 Home Medications Medication Instructions Recorded Confirmed Type escitalopram oxalate 10 mg tablet 10 mg PO DAILY 09/03/23 09/30/23 History olanzapine 10 mg tablet 10 mg PO DAILY 09/27/23 09/30/23 History Family History Family History of: Doesn't Know Family Mental Health History Comment: Pt was adopted. He says that his mother may have had a history of depression and both parents had a history of alcoholism. Alcohol History Hx of Alcohol Use Over the Past 12 Months: Yes (drinks occasionally, beer last night) AUDIT Total Score: 1 Smoking Use Have You Smoked or Used Tobacco Products in the Last 30 Days: Yes tobacco type: cigarettes Smoking Status: Current every day smoker Smoking packs per day: 0.5 Substance History Hx of Prescription Med Misuse Over the Past 12 Months: No Hx of Over the Counter Med Misuse Over the Past 12 Months: No Hx of Inhalent Misuse Over the Past 12 Months: No Hx of Organic Substance Use Over the Past 12 Months: Yes (hx synthetic/derivative of THC usage approx 2 mos ago) Hx of Illegal Substances/Street Drug Use Over Past 12 Months: No (denies) Problems as a Result of Past Substance Use: Life out of Control Personal History Living Arrangements: Home Beliefs That Will Affect Care: None Hx Traumatic Life Events: No Additional Comments: Patient lives in [place] and in a house with his adoptive parents, 18-year-old adopted sister, and 16-year-old adopted brother. Patient graduated high school. He is never been in the . He works for [employer]. He is not in a relationship. He is not involved in any organized activities. He has no legal issues. Patient History Medical History Unspecified psychosis not due to a substance or known physiological condition Depression Acute anxiety Suicidal ideations Cannabis hyperemesis syndrome concurrent with and due to cannabis abuse Major depressive disorder with single episode Recurrent vomiting Suicidal ideations Social History Smoking Status: Current every day smoker Tobacco Type: Cigarettes Preferred Language: Divehi Communication Ability: Effective Java Portal Developer Required: No Beliefs That Will Affect Care: None Feels Safe at Home: Yes Gender Identity: Male Assistive Devices: None Review of Systems Review of Systems: Patient denied any cold or flu. No headache or fever. He describes occasional double vision "like walking through glass." Otherwise, there are no problems with eyes, ears, nose, teeth, or swallowing. No pain or swelling in their neck. He feels short of breath, but no wheezing or coughing. No chest pain, racing heartbeat, or irregular heart rate, but he says he sometimes feels "pressure." He also mentions that sometimes his heart rate will go down.. No diarrhea, upset stomach, or constipation. No dysuria, problems emptying their bladder, initiating a urine stream, or hematuria. No skin lesions. No concerns about an STD. He feels generally numb, but otherwise no muscle weakness, tingling, or tremors. No broken bones. No problems with their joints. No problems with their feet. No bleeding problems. Physical Exam Psychiatric: Patient was alert and oriented x 3. He was clean and relatively well-groomed. Eye contact was good. Speech was normal. Mood was "totally depressed." Affect was very restricted and looked anxious. Thought process was logical and goal- directed but perseverated on this feeling of a terrible medical issue. There was no evidence of any hallucinations. Patient denied any suicidal or homicidal thoughts. Memory was fair; he knew his date of , the president's name, but not the capital [facility]. Concentration was good; he could spell the word world backwards. No abnormal movements were seen. Gait was normal. Insight and judgment are impaired. Vital Signs (Past 24 Hours): Last Vital Signs Temp 36.7 C 10/01/23 06:46 Pulse 72 10/01/23 06:46 Resp 16 10/01/23 06:46 BP 102/62 10/01/23 06:48 Pulse Ox 97 10/01/23 06:46 O2 Del Method Room Air 10/01/23 06:46 Exam Statement: A physical exam was performed in the emergency department by Dr. Ponce on September 29. Other than a bizarre affect and suicidal ideation, what looks like a thorough physical was negative for any problems. The patient asked me to look inside his nose for any signs of congestion or inflammation. I did so and I did not see anything abnormal. Results & Data ([facility]) Laboratory Results Laboratory Results - last 24 hr 09/30/23 09/30/23 12:29 13:00 WBC 8.38 RBC 5.46 Hgb 16.0 POC Hgb 16.7 Hct 47.4 POC Hct 49 MCV 86.8 MCH 29.3 MCHC 33.8 RDW Std Deviation 41.0 RDW Coeff of Silva 13.0 Plt Count 268 MPV 9.4 Immature Gran % (Auto) 0.2 Neut % (Auto) 64.9 Lymph % (Auto) 26.1 [place] % (Auto) 7.2 Eos % (Auto) 1.1 Baso % (Auto) 0.5 Neut # (Auto) 5.44 Lymph # (Auto) 2.19 [place] # (Auto) 0.60 H Eos # (Auto) 0.09 Baso # (Auto) 0.04 Immature Gran # (Auto) 0.02 POC Sodium 140 Sodium 136 POC Potassium 3.8 Potassium 4.2 POC Chloride 102 Chloride 101 Carbon Dioxide 26 POC Total CO2 25 Anion Gap 9 POC Anion Gap 18.0 POC BUN 12 BUN 12 Creatinine 0.76 POC Creatinine 0.7 Est Cr Clr Drug Dosing 162.7 Est GFR ( Amer) > 150.0 Est GFR (Non-Af Amer) 130.4 BUN/Creatinine Ratio 15.8 Glucose 122 H POC Glucose (other) 111 H Calcium 10.1 POC Ioniz Calcium Robert 1.24 Total Bilirubin 0.6 AST 19 ALT 16 Alkaline Phosphatase 59 Total Protein 8.0 Albumin 5.0 Globulin 3.0 Albumin/Globulin Ratio 1.7 Lipase 10 L TSH 0.580 Urine Color Yellow Urine Appearance Clear Urine pH 6.0 Ur Specific Lenora 1.006 Urine Protein Negative Urine Glucose (UA) Negative Urine Ketones Negative Urine Blood Negative Urine Nitrite Negative Urine Bilirubin Negative Urine Urobilinogen Negative Ur Leukocyte Esterase Negative Salicylates < 3.0 L Urine Opiates Screen Neg Ur Methadone, Qual Neg Acetaminophen < 3 L Urine Barbiturates Neg Ur Phencyclidine (PCP) Neg U Amphetamin/Meth Scrn Neg MDMA (Ecstasy) Screen Neg U Benzodiazepines Scrn Neg Ur Cocaine Metabolite Neg U Marijuana (THC) Screen Neg Ethyl Alcohol mg/dL < 10.0 SARS-CoV-2, RNA, NAAT NEGATIVE Diagnostic Findings Abdomen/pelvis CT and head CT were done on September 29 and did not show any concerns whatsoever. Current Inpatient Medications Current Inpatient Medications: Current Inpatient Medications Acetaminophen (Acetaminophen 325 Mg Tab) 650 mg PO Q4H PRN PRN Reason: Headache or Minor Fever Stop: 10/30/23 19:00 Al Hydrox/Mg Hydrox/Simethicone (Aluminum/Magnesium Susp 30 Ml Udc) 30 ml PO Q4H PRN PRN Reason: GI Upset Stop: 10/30/23 19:00 Bismuth Subsalicylate (Bismuth Subsalicylate Liqd 236 Ml) 15 ml PO PRN PRN PRN Reason: Loose Stool Stop: 10/30/23 19:00 Hydroxyzine HCl (Hydroxyzine Hcl 25 Mg Tab) 50 mg PO HSZ PRN PRN Reason: Insomnia Stop: 10/30/23 19:00 Hydroxyzine HCl (Hydroxyzine Hcl 25 Mg Tab) 25 mg PO Q4H PRN PRN Reason: Anxiety Stop: 10/30/23 19:00 Magnesium Hydroxide (Magnesium Hydroxide Susp 30 Ml Udc) 30 ml PO DAILY PRN PRN Reason: Constipation Stop: 10/30/23 19:00 Miscellaneous (Remove Nicoderm Patch) 1 each N/A DAILY@0859 [facility] Stop: 10/31/23 08:58 Last Admin: 10/01/23 08:56 Dose: 1 each Nicotine (Nicotine 14 Mg/24 Hr Patch) 14 mg TD QAM [facility] Stop: 10/31/23 08:59 Last Admin: 10/01/23 08:56 Dose: 14 mg Nicotine Polacrilex (Nicotine Polacrilex 2 Mg Gum) 1 piece MT PRN PRN PRN Reason: Nicotine Withdrawal Symptoms Stop: 10/30/23 19:00 Sodium Chloride (Sodium Chloride 0.65% Na Soln 45 Ml ([place])) 1 - 2 sprays NA PRN PRN PRN Reason: Nasal Dryness/Congestion Stop: 10/30/23 19:00
[2023-10-01] MEDS: ESCITALOPRAM OXALATE 10 MG TAB PO SCH (21:14)
[2023-10-01] MEDS: OLANZapine 10 MG TAB PO SCH (21:14)
[2023-10-02] MEDS: ONDANSETRON 4 MG OD TAB PO PRN (11:03)
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
[2023-10-02] MEDS: hydrOXYzine HCl 25 MG TAB PO PRN (19:33)
--- NOTE | 2023-10-03 07:09 | Electrocardiogram Report ---
Test Reason : Blood Pressure : / mmHG Vent. Rate : 072 BPM Atrial Rate : 072 BPM P-R Int : 146 ms QRS Dur : 098 ms QT Int : 350 ms P-R-T Axes : 051 090 054 degrees QTc Int : 383 ms Normal sinus rhythm Rightward axis Normal ECG When compared with ECG of 07-AUG-2023 11:01, No significant change was found Confirmed by Berry Lemos ([id number]) on 10/03/2023 7:09:24 AM Referred By: REFERRED SELF Confirmed By:Berry Lemos
--- NOTE | 2023-10-03 14:07 | Psychiatric Progress Note ---
Date of Service October 03, 2023 Impression / Recommendations Impression This is a young man who has a history of pretty bad anxiety and depression. There also was a history of using THC illicitly. I do not doubt that he brought cannabis or some THC type of product off the Internet. However, it does not appear that there is a physical basis to his concerns about his body. He is adopted so we do not know enough about family history to have a good sense of his genetic predispositions. We could look at this is a delusional disorder that is causing depression or we could consider it major depression with psychosis. Regardless, I think we would treat it the same way. 10/03/2023: Patient is not doing well. He continues to ruminate and perseverate on his somatic complaints. I am very worried about his suicidal thoughts. He denies them, but I do not believe him. (1) Major depressive disorder, recurrent, severe with psychotic symptoms: (2) Delusional disorder, somatic type: Plan 10/01/2023: 1. The patient is admitted here for safety, further evaluation, and treatment. We have him on suicide precautions with every 15 minute observation. Because of his psychomotor agitation, we are going to have him in a room by himself for now. 2. I restarted his Lexapro and olanzapine. He was not taking them reliably and we are going to give them to him here reliably and see if they can offer some support. 3. I encouraged the patient to take part in our therapeutic milieu, attend groups and activities, maintain good hygiene, and try not to isolate. 4. Our medical people are available to evaluate and treat any medical issues that may arise. 5. We will set up a family meeting before discharge to make sure we go over safety, and sure the gun is out of the house or at least locked up, and have a good discharge treatment plan. 6. Disposition will likely be back home with outpatient medication management and counseling. Because of his poor insight about his problems, adherence to treatment may become a problem here or after discharge. 10/02/2023: We will continue with our current level of observation and precautions. I encouraged him to keep going to groups and activities. We will continue with his medications as they are and give that olanzapine some time to possibly help with his psychotic symptoms. We are not seeing much improvement at this point. 10/03/2023: We will continue with our current level of observation and precautions. I encouraged him to keep going to groups and activities. We will continue to use the medications which might help over time. I am concerned that his delusional disorder will lead him to want to leave the hospital because he does not think he is really getting anything from us here. However, we still have to keep in mind that he had a loaded gun that he discharged in the house and was going to use to end his life. We may need to consider a 302 if he asks to leave. Today I spent 36 minutes on the case. This included meeting with the patient, reviewing the chart, nursing report, multidisciplinary team meeting, orders, and documentation. Suicide Risk Level Suicide Risk Level: Moderate (q15 min suicide checks) Risk Factors Assessment Do You Have Access To A Gun?: Yes Protective Factors Assessment Employed: Yes ([employer]) Interval History Identifying Information CONCHA GOMEZ is a 23-year-old adopted male from [place] who presented to the emergency room on September 29 with suicidal ideation. He is convinced that something terrible is happened to his body after he took some black market THC that he bought on the Internet. Chief Complaint "I almost committed suicide." Review of Systems Sleep Information Total Hours of Sleep: 7 Meal Information Percent Meal Consumed - Breakfast: 100 Percent Meal Consumed - Lunch: 100 Percent Meal Consumed - Dinner: 100 Subjective Subjective Today I met with the patient, received nursing report, and reviewed his chart. We also had a multidisciplinary team meeting to discuss his care. Concha is in our hospital due to concerns of suicidal ideation and depression, but also likely somatic delusions. Staff report that he got 7 hours of sleep. He had no complaints last evening. He did have some nausea from his medication but it was not severe. Ingroup he continued to talk about the concerns that he had taken some black market THC that somehow permanently hurt him. He is very somatic about different body or his organ systems. He is attending groups but is minimally participating. He described his mood at 7-8 out of 10 where 10 is the best it could be. When I met with him today, he said his appetite was better. He has been taking his meds reliably. He feels like his mother has been supportive and has been communicating with her. Patient denies any hallucinations. He denies suicidal or homicidal thoughts. He denies self-harm. He feels somewhat hopeless. He described his mood with me today as "depressed. 2 other times he came up to my office and asked questions. The first time he wanted a patient handout on depersonalization-derealization disorder. Later, he came to the office and was asking about possibly discharging tomorrow. He says he just wants to pack up his things and move back to [facility] ([place] He says he has a place he could stay. He says he is "just fed up" with this country. Physical Exam Psychiatric Patient was alert and mostly cooperative; he was somewhat guarded. He was a little bit disheveled. Eye contact was good. Speech was normal. Mood is still frustrated. Affect is congruent. Thought process is perseverative on his somatic complaints. He is not hallucinating but he is still having somatic delusions I suspect. He denied suicidal and homicidal thoughts, but I believe he is still suicidal. Memory and concentration were okay. No abnormal movements were seen. Gait was normal. Insight and judgment are impaired. Vital Signs (Past 24 Hours) Last Vital Signs Temp 36.7 C 10/03/23 06:45 Pulse 69 10/03/23 06:46 Resp 16 10/03/23 06:45 BP 110/72 10/03/23 06:46 Pulse Ox 97 10/01/23 06:46 O2 Del Method Room Air 10/01/23 06:46 Results & Data ([facility]) Current Inpatient Medications Current Inpatient Medications: Current Inpatient Medications Acetaminophen (Acetaminophen 325 Mg Tab) 650 mg PO Q4H PRN PRN Reason: Headache or Minor Fever Stop: 10/30/23 19:00 Al Hydrox/Mg Hydrox/Simethicone (Aluminum/Magnesium Susp 30 Ml Udc) 30 ml PO Q4H PRN PRN Reason: GI Upset Stop: 10/30/23 19:00 Bismuth Subsalicylate (Bismuth Subsalicylate Liqd 236 Ml) 15 ml PO PRN PRN PRN Reason: Loose Stool Stop: 10/30/23 19:00 Escitalopram Oxalate (Escitalopram Oxalate 10 Mg Tab) 10 mg PO HS BUDDY Stop: 10/31/23 21:59 Last Admin: 10/02/23 21:16 Dose: 10 mg Hydroxyzine HCl (Hydroxyzine Hcl 25 Mg Tab) 50 mg PO HSZ PRN PRN Reason: Insomnia Stop: 10/30/23 19:00 Hydroxyzine HCl (Hydroxyzine Hcl 25 Mg Tab) 25 mg PO Q4H PRN PRN Reason: Anxiety Stop: 10/30/23 19:00 Last Admin: 10/02/23 19:33 Dose: 25 mg Magnesium Hydroxide (Magnesium Hydroxide Susp 30 Ml Udc) 30 ml PO DAILY PRN PRN Reason: Constipation Stop: 10/30/23 19:00 Miscellaneous (Remove Nicoderm Patch) 1 each N/A DAILY@0859 [facility] Stop: 10/31/23 08:58 Last Admin: 10/03/23 08:52 Dose: 1 each Nicotine (Nicotine 14 Mg/24 Hr Patch) 14 mg TD QAM BUDDY Stop: 10/31/23 08:59 Last Admin: 10/03/23 08:50 Dose: 14 mg Nicotine Polacrilex (Nicotine Polacrilex 2 Mg Gum) 1 piece MT PRN PRN PRN Reason: Nicotine Withdrawal Symptoms Stop: 10/30/23 19:00 Olanzapine (Olanzapine 10 Mg Tab) 10 mg PO HS BUDDY Stop: 10/31/23 21:59 Last Admin: 10/02/23 21:16 Dose: 10 mg Ondansetron HCl (Ondansetron 4 Mg Od Tab) 4 mg PO Q6H PRN PRN Reason: Nausea Stop: 10/31/23 13:34 Last Admin: 10/02/23 11:03 Dose: 4 mg Sodium Chloride (Sodium Chloride 0.65% Na Soln 45 Ml ([place])) 1 - 2 sprays NA PRN PRN PRN Reason: Nasal Dryness/Congestion Stop: 10/30/23 19:00 Mental Health & Subst Abuse Tx Psychiatrist Name of Psychiatrist: Jason Joya Psychiatrist's Date Of Appointment With Psychiatric Provider: 10/18/23 Time of Appointment with Psychiatrist: 9:30 AM Psychiatric Appointment Comment: [address] [facility] [id number] Therapist Name of Therapist: Murali Johnson Therapist's Date of Therapist Appointment: 10/06/23 Time of Therapist Appointment: 0900 Therapy Appointment Comment: [address], [address], [facility] [address] Cart Driver Name of Cart Driver: N/A Post Discharge Appointments Primary Care Physician Name Of Family Doctor/PCP: Dr. Hill
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
[2023-10-04] MEDS: ESCITALOPRAM OXALATE 10 MG TAB PO SCH (21:35)
[2023-10-05 09:01] LABS: Estimated Average Glucose 108 mg/dl; Hemoglobin A1C 5.4 % (4.5-5.6)
[2023-10-05 09:16] LABS: Chol HDL Ratio 3.4 (0-5)
--- NOTE | 2023-10-05 09:52 | Psychiatric Progress Note ---
Date of Service October 05, 2023 Impression / Recommendations Impression 23 yo man adopted from [facility] as a teenager with a history of trauma, depression and anxiety admitted for increased somatic fixation and depression with concerning behaviors such as discharging a gun at his parents home. Diagnostically consistent with unspecified psychosis with differential including delusional disorder vs depression with psychotic features vs substance withdrawal psychosis from recent delta 8 use. He requires psychiatric hospitalization for diagnostic clarification, safety and stabilization, medication management and development of further coping skills. MNPR due to inability to tolerate a roommate due to ongoing psychosis with statements of concerns about poisoning and mold 10/05/2023: Ongoing concerns about his ability to concentrate and focus since using delta 8 which he doesn't attribute to depersonalization, derealization, psychosis nor depression. He is unsure why this has occurred but maintains that a detox supplement was helpful and thinks olanzapine and lexapro may be helping a little. He denies any medication side effects. Today has focused on elimination of coffee and peanut butter possibly helping with his symptoms. (1) Major depressive disorder, recurrent, severe with psychotic symptoms: (2) Delusional disorder, somatic type: Plan 10/05/2023: Continue current medications and treatment plan. 10/04/2023: Increase lexapro to 15mg HS for depression. Continue with olanzapine. Fasting lipid panel and hbA1c tomorrow AM. Today I spent 45 minutes on the case. This included meeting with the patient, reviewing the chart, nursing report, multidisciplinary team meeting, orders, and documentation. Suicide Risk Level Suicide Risk Level: Moderate (q15 min suicide checks) (concerning behaviors prior to admission with SI and delusions but currently denying SI but still with somatic fixation and psychosis, does feel safe in the hospital and feels comfo rtable talking to nurses if he feels unsafe or requires additional support) Risk Factors Assessment Do You Have Access To A Gun?: Yes Protective Factors Assessment Employed: Yes ([employer]) Interval History Identifying Information CONCHA GOMEZ is a 23-year-old adopted male from [place] who presented to the emergency room on September 29 with suicidal ideation. He is convinced that something terrible is happened to his body after he took some black market THC that he bought on the Internet. Chief Complaint "I feel like my brain is fighting me". Review of Systems Sleep Information Total Hours of Sleep: 6.30 Sleep Comments: Scheduled HS Zyprexa Meal Information Percent Meal Consumed - Breakfast: 100 Percent Meal Consumed - Lunch: 100 Percent Meal Consumed - Dinner: 100 Subjective Subjective Patient was seen & assessed and interval progress reviewed with treatment team nursing and social work. Watched a movie last night but still very overwhelmed. Had nausea last evening and required zofran. He slept only 6.5 hours last evening. Today he reports he is "ok" and slept well last night. He expresses low suicidal thoughts today and complete a CAMS noting his family and friends as reasons for living but high self-hate and distress due to negative effects on his concentration and brain he views as due to delta 8 use previously. He feels he has been experiencing depression, concentration difficulties, and memory issues since using Delta-8. He has tried detoxing himself with zeolite and activated charcoal, which provided some relief and he wonders about using this again. He isn't sure what it helped with, just that it seemed to make him feel better. No side effects from higher dose of lexapro last night nor from olanzapine which seems to be helping with sleep. Prior to hospitalization, he feels he had poor sleep quality due to his symptoms. States he has been experiencing some nausea, but not significantly. He has been trying to maintain a low sugar diet and today thinks that avoiding peanut butter and coffee, may be helping. Physical Exam Psychiatric Orientation: alert and oriented x 3 Apperance: appropriately dressed Eye Contact: + fair eye contact Motor Behavior: steady gait and station and no abnormal motor movements Speech: normal rate/rhythm/volume of speech Affect: + anxious affect and + blunted affect Mood: + depressed mood and + anxious mood Thought Process: + circumstantial thought process Thought Content: + preoccupation and + delusions (somatic focused) Suicidal Thoughts: + reports suicidal thoughts (lessening ) Homicidal Thoughts: denies homicidal thoughts Insight: + limited insight Judgment: + limited judgement Vital Signs (Past 24 Hours) Last Vital Signs Temp 36.1 C L 10/05/23 06:00 Pulse 91 H 10/05/23 06:00 Resp 16 10/05/23 06:00 BP 115/71 10/05/23 06:00 Pulse Ox 97 10/04/23 06:20 O2 Del Method Room Air 10/04/23 06:20 Results & Data ([facility]) Laboratory Results Laboratory Results - last 24 hr 10/05/23 08:03 Estimat Average Glucose 108 Hemoglobin A1c 5.4 Triglycerides 92 Cholesterol 161 LDL Cholesterol, Calc 95 VLDL Cholesterol, Calc 18 HDL Cholesterol 48 Cholesterol/HDL Ratio 3.4 Current Inpatient Medications Current Inpatient Medications: Current Inpatient Medications Acetaminophen (Acetaminophen 325 Mg Tab) 650 mg PO Q4H PRN PRN Reason: Headache or Minor Fever Stop: 10/30/23 19:00 Al Hydrox/Mg Hydrox/Simethicone (Aluminum/Magnesium Susp 30 Ml Udc) 30 ml PO Q4H PRN PRN Reason: GI Upset Stop: 10/30/23 19:00 Bismuth Subsalicylate (Bismuth Subsalicylate Liqd 236 Ml) 15 ml PO PRN PRN PRN Reason: Loose Stool Stop: 10/30/23 19:00 Escitalopram Oxalate (Escitalopram Oxalate 10 Mg Tab) 15 mg PO HS [facility] Stop: 11/03/23 21:59 Last Admin: 10/04/23 21:35 Dose: 15 mg Hydroxyzine HCl (Hydroxyzine Hcl 25 Mg Tab) 50 mg PO HSZ PRN PRN Reason: Insomnia Stop: 10/30/23 19:00 Hydroxyzine HCl (Hydroxyzine Hcl 25 Mg Tab) 25 mg PO Q4H PRN PRN Reason: Anxiety Stop: 10/30/23 19:00 Last Admin: 10/02/23 19:33 Dose: 25 mg Magnesium Hydroxide (Magnesium Hydroxide Susp 30 Ml Udc) 30 ml PO DAILY PRN PRN Reason: Constipation Stop: 10/30/23 19:00 Miscellaneous (Remove Nicoderm Patch) 1 each N/A DAILY@0859 [facility] Stop: 10/31/23 08:58 Last Admin: 10/05/23 08:58 Dose: Not Given Nicotine (Nicotine 14 Mg/24 Hr Patch) 14 mg TD QAM BUDDY Stop: 10/31/23 08:59 Last Admin: 10/05/23 08:57 Dose: 14 mg Nicotine Polacrilex (Nicotine Polacrilex 2 Mg Gum) 1 piece MT PRN PRN PRN Reason: Nicotine Withdrawal Symptoms Stop: 10/30/23 19:00 Olanzapine (Olanzapine 10 Mg Tab) 10 mg PO HS [facility] Stop: 10/31/23 21:59 Last Admin: 10/04/23 21:35 Dose: 10 mg Ondansetron HCl (Ondansetron 4 Mg Od Tab) 4 mg PO Q6H PRN PRN Reason: Nausea Stop: 10/31/23 13:34 Last Admin: 10/04/23 19:27 Dose: 4 mg Sodium Chloride (Sodium Chloride 0.65% Na Soln 45 Ml ([place])) 1 - 2 sprays NA PRN PRN PRN Reason: Nasal Dryness/Congestion Stop: 10/30/23 19:00 Mental Health & Subst Abuse Tx Psychiatrist Name of Psychiatrist: Jason Joya Psychiatrist's Date Of Appointment With Psychiatric Provider: 10/18/23 Time of Appointment with Psychiatrist: 9:30 AM Psychiatric Appointment Comment: [address] [facility] [id number] Therapist Name of Therapist: Murali Johnson Therapist's Date of Therapist Appointment: 10/06/23 Time of Therapist Appointment: 0900 Therapy Appointment Comment: [address], [address], [facility] [address] Table Maker Name of Table Maker: N/A Post Discharge Appointments Primary Care Physician Name Of Family Doctor/PCP: Dr. Hill
[2023-10-05] MEDS: ACETAMINOPHEN 325 MG TAB PO PRN (19:40)
--- NOTE | 2023-10-06 09:19 | Psychiatric Progress Note ---
Date of Service October 06, 2023 Impression / Recommendations Impression 23 yo man adopted from [facility] as a teenager with a history of trauma, depression and anxiety admitted for increased somatic fixation and depression with concerning behaviors such as discharging a gun at his parents home. Diagnostically consistent with unspecified psychosis with differential including delusional disorder vs depression with psychotic features vs substance withdrawal psychosis from recent delta 8 use. He requires psychiatric hospitalization for diagnostic clarification, safety and stabilization, medication management and development of further coping skills. MNPR due to inability to tolerate a roommate due to ongoing psychosis with statements of concerns about poisoning and mold 10/06/2023: Ongoing concerns about his ability to concentrate and focus since using delta 8 and increased hopelessnes, SI and somatic fixation/delusions today. Denies nausea but still focused on belief that stomach is root of his concentration and "brain function" issues. No other symptoms on ROS and he denie s any tick exposures. More focused on microtoxins from mold today. He consents to increasing escitalopram and adding mid-day dose of olanzapine given he feels his brain symptoms worsen after meals. (1) Major depressive disorder, recurrent, severe with psychotic symptoms: (2) Delusional disorder, somatic type: Plan 10/05/2022: Increase lexapro to 20mg HS and add olanzapine 2.5mg dose before lunch. Continue with olanzapine 10mg HS. 10/05/2023: Continue current medications and treatment plan. 10/04/2023: Increase lexapro to 15mg HS for depression. Continue with olanzapine. Fasting lipid panel and hbA1c tomorrow AM. Today I spent 40 minutes on the case. This included meeting with the patient, reviewing the chart, nursing report, multidisciplinary team meeting, orders, and documentation. Suicide Risk Level Suicide Risk Level: Moderate (q15 min suicide checks) (concerning behaviors prior to admission with SI and delusions and intermittent SI and still with somatic fixation and psychosis, but does feel safe in the hospital and feels comfortable talking to nurses if he feels unsafe or requires additional support) Risk Factors Assessment Do You Have Access To A Gun?: Yes Protective Factors Assessment Employed: Yes ([employer]) Interval History Identifying Information CONCHA GOMEZ is a 23-year-old adopted male from [place] who presented to the emergency room on September 29 with suicidal ideation. He is convinced that something terrible is happened to his body after he took some black market THC that he bought on the Internet. Chief Complaint "I think there may be block in the flow of my acetylcholine". Review of Systems Sleep Information Total Hours of Sleep: 6.30 Sleep Comments: Scheduled HS Zyprexa Meal Information Percent Meal Consumed - Breakfast: 100 Percent Meal Consumed - Lunch: 100 Percent Meal Consumed - Dinner: 100 Subjective Subjective Patient was seen & assessed and interval progress reviewed with treatment team nursing and social work. Last night he told RN he had "feelings of helplessness and hopelessness in regard to his treatment" and stated that "he still voices concern of "never being able to get better."". Today his concerns regarding cognitive function were discussed. He reports sleeping well but is significantly troubled by cognitive issues, feeling that environmental changes, such as sitting near a side, might help alleviate his discomfort. The patient is resistant to the use of medications like clonidine or guanfacine for these issues, insisting on the need for an endoscopy due to a belief that the root cause is gastrointestinal. He notes a worsening of brain concentration symptoms after eating. The patient is open to the suggestion of increasing his Lexapro dosage from 15 to 20 mg and is willing to try a low dose of olanzapine to aid in thought organization. He attributes his current condition to the use of Delta-8 and reports occasional suicidal thoughts due to the severity of his symptoms. There is an expressed interest in neuropsychological testing to better understand his brain function, with skepticism about the effectiveness of medication alone. The patient has been informed about the limitations of medical testing for his condition, including the inability to test for microtoxins or brain acetylcholine levels through blood tests. He has been advised on the potential benefits of medications like Lexapro on neurotransmitter flow, despite not seeing immediate effects. Later comes to my office to ask about starting Protonix for her stomach. He is agreeable to trying TUMs initially. Physical Exam Psychiatric Orientation: alert and oriented x 3 Apperance: appropriately dressed Eye Contact: + fair eye contact Motor Behavior: steady gait and station and no abnormal motor movements Speech: normal rate/rhythm/volume of speech Affect: + anxious affect and + blunted affect Mood: + depressed mood, + anxious mood and + irritable mood Thought Process: + circumstantial thought process and + perseveration Thought Content: + preoccupation and + delusions (somatic focused) Suicidal Thoughts: + reports suicidal thoughts Homicidal Thoughts: denies homicidal thoughts Insight: + limited insight Judgment: + limited judgement Vital Signs (Past 24 Hours) Last Vital Signs Temp 36.6 C 10/06/23 06:38 Pulse 72 10/06/23 06:38 Resp 16 10/06/23 06:38 BP 107/66 10/06/23 06:38 Pulse Ox 97 10/04/23 06:20 O2 Del Method Room Air 10/04/23 06:20 Results & Data ([facility] [[email or web address] Current Inpatient Medications Current Inpatient Medications: Current Inpatient Medications Acetaminophen (Acetaminophen 325 Mg Tab) 650 mg PO Q4H PRN PRN Reason: Headache or Minor Fever Stop: 10/30/23 19:00 Last Admin: 10/05/23 19:40 Dose: 650 mg Al Hydrox/Mg Hydrox/Simethicone (Aluminum/Magnesium Susp 30 Ml Udc) 30 ml PO Q4H PRN PRN Reason: GI Upset Stop: 10/30/23 19:00 Bismuth Subsalicylate (Bismuth Subsalicylate Liqd 236 Ml) 15 ml PO PRN PRN PRN Reason: Loose Stool Stop: 10/30/23 19:00 Escitalopram Oxalate (Escitalopram Oxalate 10 Mg Tab) 15 mg PO HS BUDDY Stop: 11/03/23 21:59 Last Admin: 10/05/23 20:53 Dose: 15 mg Hydroxyzine HCl (Hydroxyzine Hcl 25 Mg Tab) 50 mg PO HSZ PRN PRN Reason: Insomnia Stop: 10/30/23 19:00 Hydroxyzine HCl (Hydroxyzine Hcl 25 Mg Tab) 25 mg PO Q4H PRN PRN Reason: Anxiety Stop: 10/30/23 19:00 Last Admin: 10/02/23 19:33 Dose: 25 mg Magnesium Hydroxide (Magnesium Hydroxide Susp 30 Ml Udc) 30 ml PO DAILY PRN PRN Reason: Constipation Stop: 10/30/23 19:00 Miscellaneous (Remove Nicoderm Patch) 1 each N/A DAILY@0859 [facility] Stop: 10/31/23 08:58 Last Admin: 10/06/23 08:46 Dose: 1 each Nicotine (Nicotine 14 Mg/24 Hr Patch) 14 mg TD QAM [facility] Stop: 10/31/23 08:59 Last Admin: 10/06/23 08:45 Dose: 14 mg Nicotine Polacrilex (Nicotine Polacrilex 2 Mg Gum) 1 piece MT PRN PRN PRN Reason: Nicotine Withdrawal Symptoms Stop: 10/30/23 19:00 Olanzapine (Olanzapine 10 Mg Tab) 10 mg PO HS BUDDY Stop: 10/31/23 21:59 Last Admin: 10/05/23 20:53 Dose: 10 mg Ondansetron HCl (Ondansetron 4 Mg Od Tab) 4 mg PO Q6H PRN PRN Reason: Nausea Stop: 10/31/23 13:34 Last Admin: 10/04/23 19:27 Dose: 4 mg Sodium Chloride (Sodium Chloride 0.65% Na Soln 45 Ml ([place])) 1 - 2 sprays NA PRN PRN PRN Reason: Nasal Dryness/Congestion Stop: 10/30/23 19:00 Mental Health & Subst Abuse Tx Psychiatrist Name of Psychiatrist: Jason Joya Psychiatrist's Date Of Appointment With Psychiatric Provider: 10/18/23 Time of Appointment with Psychiatrist: 9:30 AM Psychiatric Appointment Comment: [address] [facility] [id number] Therapist Name of Therapist: Murali Johnson Therapist's Date of Therapist Appointment: 10/06/23 Time of Therapist Appointment: 09 Therapy Appointment Comment: [address], [address], [facility] [address] [place] [employer] Name of [place] [employer]inter: N/A Post Discharge Appointments Primary Care Physician Name Of Family Doctor/PCP: Dr. Hill
[2023-10-06] MEDS: OLANZAPINE 2.5 MG TAB PO SCH (12:18)
[2023-10-06] MEDS ORDERED: CALCIUM CARBONATE 500 MG CHEWABLE TAB PO PRN (12:59)
[2023-10-06] MEDS: ONDANSETRON 4 MG OD TAB PO PRN (18:02)
[2023-10-06] MEDS: ESCITALOPRAM OXALATE 20 MG TAB PO SCH (21:12)
--- NOTE | 2023-10-07 09:27 | Psychiatric Progress Note ---
Date of Service October 07, 2023 Impression / Recommendations Impression 23 yo man adopted from [facility] as a teenager with a history of trauma, depression and anxiety admitted for increased somatic fixation and depression with concerning behaviors such as discharging a gun at his parents home. Diagnostically consistent with unspecified psychosis with differential including delusional disorder vs depression with psychotic features vs substance withdrawal psychosis from recent delta 8 use. He requires psychiatric hospitalization for diagnostic clarification, safety and stabilization, medication management and development of further coping skills. MNPR due to inability to tolerate a roommate due to ongoing psychosis with statements of concerns about poisoning and mold 10/07/2023: Less focused on somatic concerns today, reports less stomach pain overall. Thinks addition of daytime olanzapine dose before lunch may be offering a little bit of benefit. Tolerating medication adjustments. Overall, I spent a total of 25 minutes on this case including meeting with the patient, reviewing the chart, nursing report, multidisciplinary team meeting, orders, and documentation. (1) Major depressive disorder, recurrent, severe with psychotic symptoms: (2) Delusional disorder, somatic type: Plan 10/07/2023: Continue current medications and tx plan. 10/05/2022: Increase lexapro to 20mg HS and add olanzapine 2.5mg dose before lunch . Continue with olanzapine 10mg HS. 10/05/2023: Continue current medications and treatment plan. 10/04/2023: Increase lexapro to 15mg HS for depression. Continue with olanzapine. Fasting lipid panel and hbA1c tomorrow AM. Today I spent 40 minutes on the case. This included meeting with the patient, reviewing the chart, nursing report, multidisciplinary team meeting, orders, and documentation. Suicide Risk Level Suicide Risk Level: Moderate (q15 min suicide checks) (concerning behaviors prior to admission with SI and delusions and intermittent SI and still with somatic fixation, but does feel safe in the hospital and feels comfortable talking to nurses if he feels unsafe or requires additional support) Risk Factors Assessment Do You Have Access To A Gun?: Yes Protective Factors Assessment Employed: Yes ([employer]) Interval History Identifying Information CONCHA GOMEZ is a 23-year-old adopted male from [place] who presented to the emergency room on September 29 with suicidal ideation. He is convinced that something terrible is happened to his body after he took some [employer] market THC that he bought on the Internet. Chief Complaint "[]". Review of Systems Sleep Information Total Hours of Sleep: 6.5 Sleep Comments: Scheduled HS Zyprexa Meal Information Percent Meal Consumed - Breakfast: 100 Percent Meal Consumed - Lunch: 100 Percent Meal Consumed - Dinner: 100 Subjective Subjective Patient was seen & assessed and interval progress reviewed with treatment team nursing and social work. Took a prn zofran yesterday. Last night reported his mood as "concerned". He reports feeling fine overall and denies any current stomach issues despite taking Zofran yesterday for nausea. He acknowledges that Zofran helped with the nausea yesterday but is also unclear on the intensity of nausea saying "I took it because it was there but not really". Reviewed option to use TUMS. He continues to struggle with concentration though is less frustrated by this today and thinks addition of olanzapine dose before lunch "maybe helped a little bit". No side effects from higher dose of lexapro. Continues to wonder about discharge, asks about goals of support meeting. Physical Exam Psychiatric Orientation: alert and oriented x 3 Apperance: appropriately dressed Eye Contact: + fair eye contact Motor Behavior: steady gait and station and no abnormal motor movements Speech: normal rate/rhythm/volume of speech Affect: + anxious affect and + blunted affect Mood: + depressed mood and + anxious mood Thought Process: + circumstantial thought process and + perseveration Thought Content: + preoccupation and + delusions (somatic focused) Suicidal Thoughts: + reports suicidal thoughts (intermittent, less today) Homicidal Thoughts: denies homicidal thoughts Insight: + limited insight Judgment: + limited judgement Vital Signs (Past 24 Hours) Last Vital Signs Temp 36.4 C L 10/07/23 06:39 Pulse 62 10/07/23 06:40 Resp 16 10/07/23 06:39 BP 115/74 10/07/23 06:40 Pulse Ox 97 10/04/23 06:20 O2 Del Method Room Air 10/04/23 06:20 Results & Data ([facility]) Current Inpatient Medications Current Inpatient Medications: Current Inpatient Medications Acetaminophen (Acetaminophen 325 Mg Tab) 650 mg PO Q4H PRN PRN Reason: Headache or Minor Fever Stop: 10/30/23 19:00 Last Admin: 10/06/23 17:59 Dose: 650 mg Al Hydrox/Mg Hydrox/Simethicone (Aluminum/Magnesium Susp 30 Ml Udc) 30 ml PO Q4H PRN PRN Reason: GI Upset Stop: 10/30/23 19:00 Bismuth Subsalicylate (Bismuth Subsalicylate Liqd 236 Ml) 15 ml PO PRN PRN PRN Reason: Loose Stool Stop: 10/30/23 19:00 Calcium Carbonate (Calcium Carbonate 500 Mg Chewable Tab) 500 mg PO BID PRN PRN Reason: acid reflux Stop: 11/05/23 12:58 Escitalopram Oxalate (Escitalopram Oxalate 20 Mg Tab) 20 mg PO HS BUDDY Stop: 11/05/23 21:59 Last Admin: 10/06/23 21:12 Dose: 20 mg Hydroxyzine HCl (Hydroxyzine Hcl 25 Mg Tab) 50 mg PO HSZ PRN PRN Reason: Insomnia Stop: 10/30/23 19:00 Hydroxyzine HCl (Hydroxyzine Hcl 25 Mg Tab) 25 mg PO Q4H PRN PRN Reason: Anxiety Stop: 10/30/23 19:00 Last Admin: 10/02/23 19:33 Dose: 25 mg Magnesium Hydroxide (Magnesium Hydroxide Susp 30 Ml Udc) 30 ml PO DAILY PRN PRN Reason: Constipation Stop: 10/30/23 19:00 Miscellaneous (Remove Nicoderm Patch) 1 each N/A DAILY@0859 [facility] Stop: 10/31/23 08:58 Last Admin: 10/07/23 08:45 Dose: 1 each Nicotine (Nicotine 14 Mg/24 Hr Patch) 14 mg TD QAM [facility] Stop: 10/31/23 08:59 Last Admin: 10/07/23 08:43 Dose: 14 mg Nicotine Polacrilex (Nicotine Polacrilex 2 Mg Gum) 1 piece MT PRN PRN PRN Reason: Nicotine Withdrawal Symptoms Stop: 10/30/23 19:00 Olanzapine (Olanzapine 10 Mg Tab) 10 mg PO HS [facility] Stop: 10/31/23 21:59 Last Admin: 10/06/23 21:12 Dose: 10 mg Olanzapine (Olanzapine 2.5 Mg Tab) 2.5 mg PO DAILYBL [facility] Stop: 11/05/23 11:59 Last Admin: 10/06/23 12:18 Dose: 2.5 mg Ondansetron HCl (Ondansetron 4 Mg Od Tab) 4 mg PO BID PRN PRN Reason: Nausea Stop: 10/31/23 13:34 Last Admin: 10/06/23 18:02 Dose: 4 mg Sodium Chloride (Sodium Chloride 0.65% Na Soln 45 Ml ([place])) 1 - 2 sprays NA PRN PRN PRN Reason: Nasal Dryness/Congestion Stop: 10/30/23 19:00 Mental Health & Subst Abuse Tx Psychiatrist Name of Psychiatrist: Jason Joya Psychiatrist's Date Of Appointment With Psychiatric Provider: 10/18/23 Time of Appointment with Psychiatrist: 9:30 AM Psychiatric Appointment Comment: [address] [facility], [facility] [address] Therapist Name of Therapist: Murali Johnson Therapist's Date of Therapist Appointment: 10/06/23 Time of Therapist Appointment: 09 Therapy Appointment Comment: [address], [address], [facility] [address] Manager Surgery Name of Manager Surgery: N/A Post Discharge Appointments Primary Care Physician Name Of Family Doctor/PCP: Sonja [facility] Date of Future Appointment with PCP: 10/13/2023 Time of Appointment with PCP: 10:45AM arrival time for 11am appointment Provider Appointment Comment: [address], Allie Pro PA
--- NOTE | 2023-10-08 12:03 | Psychiatric Progress Note ---
Date of Service October 08, 2023 Impression / Recommendations Impression 23 yo man adopted from [facility] as a teenager with a history of trauma, depression and anxiety admitted for increased somatic fixation and depression with concerning behaviors such as discharging a gun at his parents home. Diagnostically consistent with unspecified psychosis with differential including delusional disorder vs depression with psychotic features vs substance withdrawal psychosis from recent delta 8 use. He requires psychiatric hospitalization for diagnostic clarification, safety and stabilization, medication management and development of further coping skills. MNPR due to inability to tolerate a roommate due to beliefs about contamination 10/08/2023: as per previous presentations he presents as less delusional and more obessive preoccupation the longer he is hospitalized and off synthetic THC. Overall, I spent a total of 37 minutes on this case including meeting with the patient, reviewing the chart, nursing report, and documentation. (1) Major depressive disorder, recurrent, severe with psychotic symptoms: Plan 10/07/2023: Continue current medications and tx plan. 10/05/2022: Increase lexapro to 20mg HS and add olanzapine 2.5mg dose before lunch. Continue with olanzapine 10mg HS. 10/05/2023: Continue current medications and treatment plan. 10/04/2023: Increase lexapro to 15mg HS for depression. Continue with olanzapine. Fasting lipid panel and hbA1c tomorrow AM. reviewed care as per Dr. Warren below: 10/01/2023: 1. The patient is admitted here for safety, further evaluation, and treatment. We have him on suicide precautions with every 15 minute observation. Because of his psychomotor agitation, we are going to have him in a room by himself for now. 2. I restarted his Lexapro and olanzapine. He was not taking them reliably and we are going to give them to him here reliably and see if they can offer some support. 3. I encouraged the patient to take part in our therapeutic milieu, attend groups and activities, maintain good hygiene, and try not to isolate. 4. Our medical people are available to evaluate and treat any medical issues that may arise. 5. We will set up a family meeting before discharge to make sure we go over safety, and sure the gun is out of the house or at least locked up, and have a good discharge treatment plan. 6. Disposition will likely be back home with outpatient medication management and counseling. Because of his poor insight about his problems, adherence to treatment may become a problem here or after discharge. 10/02/2023: We will continue with our current level of observation and precautions. I encouraged him to keep going to groups and activities. We will continue with his medications as they are and give that olanzapine some time to possibly help with his psychotic symptoms. We are not seeing much improvement at this point. 10/03/2023: We will continue with our current level of observation and precautions. I encouraged him to keep going to groups and activities. We will continue to use the medications which might help over time. I am concerned that his delusional disorder will lead him to want to leave the hospital because he does not think he is really getting anything from us here. However, we still have to keep in mind that he had a loaded gun that he discharged in the house and was going to use to end his life. We may need to consider a 302 if he asks to leave. Suicide Risk Level Suicide Risk Level: Moderate (q15 min suicide checks) Risk Factors Assessment Do You Have Access To A Gun?: Yes Protective Factors Assessment Employed: Yes ([employer]) Interval History Identifying Information CONCHA GOMEZ is a 23-year-old adopted male from [place] who presented to the emergency room on September 29 with possible suicidal ideation and ongoing belief that his GI issues are related to toxin exposure. Chief Complaint "I'm going some better, I'd like to leave tomorrow to get back to work". Review of Systems Sleep Information Total Hours of Sleep: 6.5 Sleep Comments: Scheduled HS Zyprexa Meal Information Percent Meal Consumed - Breakfast: 100 Percent Meal Consumed - Lunch: 100 Percent Meal Consumed - Dinner: 100 Subjective Subjective Patient was seen & assessed and interval progress reviewed with nursing and counselor. Patient is known to me from previous admissions. He appears calmer/less anxious. Presentation remains complicated by his heavy use of synthetic cannabinoids, again admits to use of Delta 8 and hx of attachment issues related to adoptive status, obsessive at baseline. Confirms he has been able to retain his job at [employer]. Compliant with medications as ordered. Physical Exam Psychiatric Orientation: alert Apperance: appropriately dressed and appropriately groomed Eye Contact: + fair eye contact Motor Behavior: no abnormal motor movements Speech: + abnormal rate/rhythm/volume of speech (non spontaneous) Affect: + depressed affect Mood: + depressed mood Thought Process: + concrete thought process Thought Content: + preoccupation Suicidal Thoughts: denies suicidal thoughts Homicidal Thoughts: denies homicidal thoughts Hallucinations: no auditory hallucinations and no visual hallucinations Cognition: attention grossly intact and language grossly intact Estimated Intelligence: consistent with education level Insight: + limited insight Judgment: + limited judgement Vital Signs (Past 24 Hours) Last Vital Signs Temp 36.6 C 10/08/23 06:35 Pulse 76 10/08/23 06:36 Resp 16 10/08/23 06:35 BP 116/74 10/08/23 06:36 Pulse Ox 97 10/04/23 06:20 O2 Del Method Room Air 10/04/23 06:20 Results & Data ([facility]) Current Inpatient Medications Current Inpatient Medications: Current Inpatient Medications Acetaminophen (Acetaminophen 325 Mg Tab) 650 mg PO Q4H PRN PRN Reason: Headache or Minor Fever Stop: 10/30/23 19:00 Last Admin: 10/07/23 20:16 Dose: 650 mg Al Hydrox/Mg Hydrox/Simethicone (Aluminum/Magnesium Susp 30 Ml Udc) 30 ml PO Q4H PRN PRN Reason: GI Upset Stop: 10/30/23 19:00 Bismuth Subsalicylate (Bismuth Subsalicylate Liqd 236 Ml) 15 ml PO PRN PRN PRN Reason: Loose Stool Stop: 10/30/23 19:00 Calcium Carbonate (Calcium Carbonate 500 Mg Chewable Tab) 500 mg PO BID PRN PRN Reason: acid reflux Stop: 11/05/23 12:58 Escitalopram Oxalate (Escitalopram Oxalate 20 Mg Tab) 20 mg PO HS BUDDY Stop: 11/05/23 21:59 Last Admin: 10/07/23 21:08 Dose: 20 mg Hydroxyzine HCl (Hydroxyzine Hcl 25 Mg Tab) 50 mg PO HSZ PRN PRN Reason: Insomnia Stop: 10/30/23 19:00 Hydroxyzine HCl (Hydroxyzine Hcl 25 Mg Tab) 25 mg PO Q4H PRN PRN Reason: Anxiety Stop: 10/30/23 19:00 Last Admin: 10/02/23 19:33 Dose: 25 mg Magnesium Hydroxide (Magnesium Hydroxide Susp 30 Ml Udc) 30 ml PO DAILY PRN PRN Reason: Constipation Stop: 10/30/23 19:00 Miscellaneous (Remove Nicoderm Patch) 1 each N/A DAILY@0859 BUDDY Stop: 10/31/23 08:58 Last Admin: 10/08/23 08:39 Dose: 1 each Nicotine (Nicotine 14 Mg/24 Hr Patch) 14 mg TD QAM BUDDY Stop: 10/31/23 08:59 Last Admin: 10/08/23 08:39 Dose: 14 mg Nicotine Polacrilex (Nicotine Polacrilex 2 Mg Gum) 1 piece MT PRN PRN PRN Reason: Nicotine Withdrawal Symptoms Stop: 10/30/23 19:00 Olanzapine (Olanzapine 10 Mg Tab) 10 mg PO HS BUDDY Stop: 10/31/23 21:59 Last Admin: 10/07/23 21:09 Dose: 10 mg Olanzapine (Olanzapine 2.5 Mg Tab) 2.5 mg PO DAILYBL BUDDY Stop: 11/05/23 11:59 Last Admin: 10/08/23 11:08 Dose: 2.5 mg Ondansetron HCl (Ondansetron 4 Mg Od Tab) 4 mg PO BID PRN PRN Reason: Nausea Stop: 10/31/23 13:34 Last Admin: 10/08/23 11:08 Dose: 4 mg Sodium Chloride (Sodium Chloride 0.65% Na Soln 45 Ml ([place])) 1 - 2 sprays NA PRN PRN PRN Reason: Nasal Dryness/Congestion Stop: 10/30/23 19:00 Mental Health & Subst Abuse Tx Psychiatrist Name of Psychiatrist: Jason Joya Psychiatrist's Date Of Appointment With Psychiatric Provider: 10/18/23 Time of Appointment with Psychiatrist: 9:30 AM Psychiatric Appointment Comment: [address] [facility] ([place], [place]), [facility] [address] Therapist Name of Therapist: Murali Johnson Therapist's Date of Therapist Appointment: 10/06/23 Time of Therapist Appointment: 0900 Therapy Appointment Comment: [address], [address], [facility] [address] Wood Die Maker Name of Wood Die Maker: N/A Post Discharge Appointments Primary Care Physician Name Of Family Doctor/PCP: [facility]ja [facility] Date of Future Appointment with PCP: 10/13/2023 Time of Appointment with PCP: 10:45AM arrival time for 11am appointment Provider Appointment Comment: [address], [place]
--- NOTE | 2023-10-09 13:41 | Discharge Summary ---
Date of Service October 09, 2023 History of Present Illness As per Dr. Warren on admission: I have never met Kenny before today, but he has been here on our unit in the past. This is his third or fourth time here on our unit he tells me. I also noticed that he had multiple emergency department visits since early August. This would be around the same time that he purchased that black market THC. He was hospitalized here in July 2023. He was discharged with a diagnosis of an anxiety disorder, but there were concerns about substance induced psychosis. The patient himself wonders if he may have schizophrenia. Recently he had gotten a hold of a gun to end his life and it somehow went off in the house. Family of course was concerned and brought him to the emergency room to get help and refused to take him home. Patient says that he has had some significant problems over the last 2 months with his THC that he purchased. This includes some pretty severe memory loss, concentration problems, feeling like he cannot think straight, brain fog, poor sleep, and not feeling well. He gets very hopeless about this because he is worried it is a permanent situation. He works for [employer] and has had some difficulty functioning in his job. He is not involved in any other organized activities or nondenominational. He is not in a relationship. He has no big medical issues. He has no legal issues. He has had global insomnia but no nightmares. Appetites been very poor and he has to make himself eat. He describes his mood is "totally depressed." He has anhedonia, poor energy, poor concentration, guilt, hopelessness, and suicidal ideation. He denies any homicidal thoughts. He denies any self-harm. He denies any history of trauma or abuse. He denies any auditory or visual hallucinations. There are no ideas of reference. He smokes cigarettes but has stopped using any type of THC. He says he will drink alcohol maybe once every 2 weeks. He does not use any other substances. There is no history of any candace. Physical Exam Psychiatric See admission H&P and DOD assessment. Vital Signs (Past 24 Hours) Last Vital Signs Temp 36.7 C 10/09/23 06:42 Pulse 59 L 10/09/23 06:42 Resp 16 10/09/23 06:42 BP 121/71 10/09/23 06:42 Pulse Ox 97 10/04/23 06:20 O2 Del Method Room Air 10/04/23 06:20 Principal Diagnosis Major depressive disorder with psychotic features Psychiatric Data See daily stay summary. In short, safety was maintained and the patient was cooperative with care. Medication changes included titration of Lexapro and they tolerated this well. He also received Zyprexa 2.5 mg before lunch but this will not be prescribed at discharge as he admits not taking Zyprexa consistently at home since dose increase to 10 mg. Surescripts indicates he should have enough Zyprexa 10 mg to get to his outpatient appointment. He also discussed preference to not take medication at work. A family session was held with his father re: securing weapon and safety plan was completed prior to discharge. Kenny maintains that his "messing with" the gun was not a suicide attempt, that he came across it unexpectedly in his father's things and was frustrated re: his own synthetic THC use. He impulsively checked to see if it worked. Again discussed that his synthetic and other THC use hx has complicated his diagnosis and recovery. He also doesn't take medication consistently. He stated he did not want ARMSTRONG medication but would consider it again in future. Day of Discharge Assessment Today the patient voices readiness for discharge. They note improvement in mood and deny thoughts to harm self or others. Thoughts remain organized and they are improved from admission. There is no evidence of psychosis. They agree to take mediations as prescribed and keep follow-up appointments. They are stable for discharge to outpatient level of care. Transition of Care Transition Of Care Record: was reviewed with the patient Advance Directives Advance Directives Information Provided: Yes Advance Directives: No Mental Health Advance Directive: No Advance Directives on File: No Living Will: No Power of Grid Inspector: No Advance Directives Reason:: Declines as Mental Health Visit. Suicide Risk Level Suicide Risk Level Comments: The patient is no longer requiring 24-hr monitoring, has a safety plan, and is free of suicidal ideation at discharge. He no longer has access to gun. Risk Factors Assessment Male: Yes Do You Have Access To A Gun?: No Mental Health Diagnoses: Yes Substance Use Disorders: Yes Previous Psychiatric Hospitalization: Yes Protective Factors Assessment Employed: Yes ([employer]) Supportive Family: Yes Tobacco Cessation at Discharge Tobacco Cessation Medication Prescribed at Discharge: Offered & Pt Refused Total Time Total Time Spent: Greater Than 30 Minutes (32 min) Discharge Data Lab Results 09/30/23 09/30/23 10/05/23 12:29 13:00 08:03 WBC 8.38 RBC 5.46 Hgb 16.0 POC Hgb 16.7 Hct 47.4 POC Hct 49 MCV 86.8 MCH 29.3 MCHC 33.8 RDW Std Deviation 41.0 RDW Coeff of Silva 13.0 Plt Count 268 MPV 9.4 Immature Gran % (Auto) 0.2 Neut % (Auto) 64.9 Lymph % (Auto) 26.1 Bur[place]on % (Auto) 7.2 Eos % (Auto) 1.1 Baso % (Auto) 0.5 Neut # (Auto) 5.44 Lymph # (Auto) 2.19 [place]on # (Auto) 0.60 H Eos # (Auto) 0.09 Baso # (Auto) 0.04 Immature Gran # (Auto) 0.02 POC Sodium 140 Sodium 136 POC Potassium 3.8 Potassium 4.2 POC Chloride 102 Chloride 101 Carbon Dioxide 26 POC Total CO2 25 Anion Gap 9 POC Anion Gap 18.0 POC BUN 12 BUN 12 Creatinine 0.76 POC Creatinine 0.7 Est Cr Clr Drug Dosing 162.7 Est GFR ( Amer) > 150.0 Est GFR (Non-Af Amer) 130.4 BUN/Creatinine Ratio 15.8 Glucose 122 H POC Glucose (other) 111 H Estimat Average Glucose 108 Hemoglobin A1c 5.4 Calcium 10.1 POC Ioniz Calcium Robert 1.24 Total Bilirubin 0.6 AST 19 ALT 16 Alkaline Phosphatase 59 Total Protein 8.0 Albumin 5.0 Globulin 3.0 Albumin/Globulin Ratio 1.7 Triglycerides 92 Cholesterol 161 LDL Cholesterol, Calc 95 VLDL Cholesterol, Calc 18 HDL Cholesterol 48 Cholesterol/HDL Ratio 3.4 Lipase 10 L TSH 0.580 Urine Color Yellow Urine Appearance Clear Urine pH 6.0 Ur Specific Be[place]ley 1.006 Urine Protein Negative Urine Glucose (UA) Negative Urine Ketones Negative Urine Blood Negative Urine Nitrite Negative Urine Bilirubin Negative Urine Urobilinogen Negative Ur Leukocyte Esterase Negative Salicylates < 3.0 L Urine Opiates Screen Neg Ur Methadone, Qual Neg Acetaminophen < 3 L Urine Barbiturates Neg Ur Phencyclidine (PCP) Neg U Amphetamin/Meth Scrn Neg MDMA (Ecstasy) Screen Neg U Benzodiazepines Scrn Neg Ur Cocaine Metabolite Neg U Marijuana (THC) Screen Neg Ethyl Alcohol mg/dL < 10.0 SARS-CoV-2, RNA, NAAT NEGATIVE Hospital Course (1) Major depressive disorder, recurrent, severe with psychotic symptoms: Plan 10/07/2023: Continue current medications and tx plan. 10/05/2022: Increase lexapro to 20mg HS and add olanzapine 2.5mg dose before lunch. Continue with olanzapine 10mg HS. 10/05/2023: Continue current medications and treatment plan. 10/04/2023: Increase lexapro to 15mg HS for depression. Continue with olanzapine. Fasting lipid panel and hbA1c tomorrow AM. reviewed care as per Dr. Warren below: 10/01/2023: 1. The patient is admitted here for safety, further evaluation, and treatment. We have him on suicide precautions with every 15 minute observation. Because of his psychomotor agitation, we are going to have him in a room by himself for now. 2. I restarted his Lexapro and olanzapine. He was not taking them reliably and we are going to give them to him here reliably and see if they can offer some support. 3. I encouraged the patient to take part in our therapeutic milieu, attend groups and activities, maintain good hygiene, and try not to isolate. 4. Our medical people are available to evaluate and treat any medical issues that may arise. 5. We will set up a family meeting before discharge to make sure we go over safety, and sure the gun is out of the house or at least locked up, and have a good discharge treatment plan. 6. Disposition will likely be back home with outpatient medication management and counseling. Because of his poor insight about his problems, adherence to treatment may become a problem here or after discharge. 10/02/2023: We will continue with our current level of observation and precautions. I encouraged him to keep going to groups and activities. We will continue with his medications as they are and give that olanzapine some time to possibly help with his psychotic symptoms. We are not seeing much improvement a t this point. 10/03/2023: We will continue with our current level of observation and precautions. I encouraged him to keep going to groups and activities. We will continue to use the medications which might help over time. I am concerned that his delusional disorder will lead him to want to leave the hospital because he does not think he is really getting anything from us here. However, we still have to keep in mind that he had a loaded gun that he discharged in the house and was going to use to end his life. We may need to consider a 302 if he asks to leave. Mental Health & Subst Abuse Tx Psychiatrist Name of Psychiatrist: Jason Joya Psychiatrist's Date Of Appointment With Psychiatric Provider: 10/18/23 Time of Appointment with Psychiatrist: 9:30 AM Psychiatric Appointment Comment: [address] [facility] [place], [place], [facility] [address] Therapist Name of Therapist: Murali Johnson Therapist's Date of Therapist Appointment: 10/06/23 Time of Therapist Appointment: 899 Therapy Appointment Comment: [address], [address], [facility] [address] Outfitter Cabin Name of Outfitter Cabin: N/A Post Discharge Appointments Primary Care Physician Name Of Family Doctor/PCP: Sonja Hill [facility] Date of Future Appointment with PCP: 10/13/2023 Time of Appointment with PCP: 10:45AM arrival time for 11am appointment Provider Appointment Comment: [address], [place] Smoking Cessation Counseling Tobacco Cessation Medication Prescribed at Discharge: Offered & Pt Refused Discharge Plan Discharge Items Patient Disposition: Home - Self-Care Reason For Visit: SUICIDAL IDEATION Discharge Diagnosis: major depressive disorder with psychotic features Activity: Resume your previous activity Non-emergency contact: Primary Care Provider and Psychiatrist Call non-emergency contact if: you have any medication questions and your symptoms worsen Follow-up/Referrals: Rad Hill MD [Primary Care Provider] - Diet: Regular Addtl Attending Provider Instructions: SPECIAL CARE INSTRUCTIONS: 1. Follow through with your scheduled aftercare appointments. If unable to keep an appointment, please call to reschedule. 2. Take your medication only as prescribed. Medication should not be changed or stopped without the approval of your doctor. In the event of worsening symptoms or concerns about side effects, contact your doctor immediately. 3. Utilize new healthy coping skills, anger management skills, and stress management skills learned during your hospitalization. Journal feelings and process them with a support person. Identify stressors or situations that may result in relapse, deterioration or inappropriate behaviors and develop a plan to deal with those issues. 4. If your coping skills are ineffective and you are in crisis, contact your outpatient providers for direction. If unable to reach your providers, please call the [facility] CRISIS LINE AT , go to the [facility] walk-in center at [address], [address], [place], or go to the closest Emergency Room. 5. Avoid alcohol and un-prescribed drugs. 6. You have been provided with the Mental Health Advance Directives Pamphlet for your review. 7. Your condition is stable for discharge to outpatient level of care, but recovery is an ongoing process. Ifthoughts to harm yourself or others return, follow the safety plan developed during your stay. Planning for a safe return home includes securing weapons. Our treatment team recommends weaponsbe removed from the home until your outpatient provider reassesses your progress. In rare cases where the items themselvescannot be removed, guns and ammunitionshould be secured separatelyand keys stored by a reliable personoutside of the home. If you were admitted on an involuntary commitment, the police or other legal authorities may be involved in this process. AFTERCARE APPOINTMENTS: * Please call your insurance company prior to your scheduled appointment to confirm your aftercare providers are covered. Take your insurance information to your chela ointiFormulary. WHO TO CALL AND WHEN: Medical Emergencies: For questions or emergencies related to your hospital stay, please contact the Inpatient Behavioral Health Unit at [phone]. A asset analyst is on-call 23/01 for the Behavioral Health Unit for emergencies At any time you feel your situation is an emergency, you may also call 911 immediately. Pending Studies at Discharge: No Stand-Alone Forms: [facility], Smoking Cessation Medications and DC Order Prescriptions: New escitalopram oxalate 20 mg Tablet 20 mg PO HS Qty: 14 0RF Continued olanzapine 10 mg tablet 10 mg PO DAILY Discontinued escitalopram oxalate 10 mg tablet 10 mg PO DAILY Discharge Orders: Discharge Order (Routine); Ordered 10/09/23 Ordered By: Kati Monahan Admission Data Admit Date/Time: 09/30/23 18:43 Attending Provider: Danisha Lucas Admit Provider: Good Warren Jr Primary Care Provider: Rad Hill Other Providers: Good Warren Jr Other Interventions: PSY Interdisciplinary Discharge Planning Last Done: 10/06/23 10:20 Coding Level of Care Code 28178 D/C day mgmt > 30 min Diagnoses Major depressive disorder, recurrent, severe with psychotic symptoms F33.3
== END 2023-10-09 16:50 | disposition home or self-care (01) | DRG 885 ==
LOC: ED 12:02 → 3S 18:30 → SUATTDRO 18:43 → 3S 18:43
DX: R45.851 Suicidal ideations; F22 Delusional disorders; F33.3 Major depressive disorder, recurrent, severe with psychotic symptoms; Z79.899 Other long term (current) drug therapy; Z91.148 Patient's other noncompliance with medication regimen for other reason; F17.210 Nicotine dependence, cigarettes, uncomplicated; F41.9 Anxiety disorder, unspecified; T43.596A Underdosing of other antipsychotics and neuroleptics, initial encounter